=== PATIENT | female | born 1945 | race Caucasian/White ===

== ENCOUNTER 2022-04-22 08:00 | Outpatient (CLI) | payer MEDICARE, BC, SELFPAY | END 2022-04-22 08:01 | disposition home or self-care (01) | LOC: RAD 08:02 | PROVIDERS: PCP Family Medicine; Visit Provider Family Medicine | DX: M48.062 Spinal stenosis, lumbar region with neurogenic claudication (principal); M54.16 Radiculopathy, lumbar region; M51.36 Other intervertebral disc degeneration, lumbar region | CPT/HCPCS: 62323; J0702; Q9966 ==

== ENCOUNTER 2022-10-31 09:39 | Emergency (ER) | payer MEDICARE, BC, SELFPAY ==
[2022-10-31 09:49] VITALS: BP 180/71; PULSE 74; RESP 18; TEMP 36.7; O2SAT 97; BMI 30.1
--- NOTE | 2022-10-31 10:04 | CRLHL7_ITS ---
For Patients: As a result of the Century Cures Act, medical imaging exams and procedure reports are released immediately into your electronic medical record. You may view this report before your referring provider. If you have questions, please contact your health care provider. INDICATION: Right facial pain, sinusitis TECHNIQUE: CT sinus without contrast. COMPARISON: None. FINDINGS: Sphenoid sinus: Trace mucosal thickening. Ethmoid sinus: Mild mucosal thickening. Frontal sinus: Mild mucosal thickening at the frontoethmoidal recess. Maxillary sinus: Thicker bilateral mucosal thickening. Ostiomeatal units: Mucosal thickening narrowing to nearly occluding the infundibula bilaterally. Nasal cavity: Leftward deviation of the nasal septum with a leftward bony spur. Temporomandibular joints: Bilateral temporomandibular joint osteoarthritis, greater on the right. Mastoid air cells: Trace right mastoid fluid. Orbits: Unremarkable. Other: Atherosclerosis. IMPRESSION: 1. Mild sinus disease with mucosal thickening in the maxillary sinuses and narrowing to near occlusion of the ostiomeatal units bilaterally. 2. Bilateral temporomandibular joint osteoarthritis. Please note that all CT scans at this facility use dose modulation, iterative reconstruction, and/or weight-based dosing when appropriate to reduce radiation dose to as low as reasonably achievable. Dictated by Woodrow Casey MD @ 10/31/2022 12:45:17 PM (Electronically Signed)
--- NOTE | 2022-10-31 10:04 | CRLHL7_ITS ---
For Patients: As a result of the Century Cures Act, medical imaging exams and procedure reports are released immediately into your electronic medical record. You may view this report before your referring provider. If you have questions, please contact your health care provider. INDICATION: Headache and facial pain TECHNIQUE: CT head without contrast. COMPARISON: None. FINDINGS: CSF spaces: Within normal limits for age. Brain parenchyma: No intracranial bleed or mass effect. Cordova-white differentiation is distinct. Mild low-density in the deep white matter. Skull base and calvarium: Mucosal thickening paranasal sinuses. Bilateral temporomandibular joint osteoarthritis. The visualized orbits are grossly unremarkable. No skull fractures. IMPRESSION: 1. No intracranial bleed or mass effect. 2. Mild nonspecific white matter disease, likely microangiopathy. 3. Bilateral temporomandibular joint osteoarthritis. Please note that all CT scans at this facility use dose modulation, iterative reconstruction, and/or weight-based dosing when appropriate to reduce radiation dose to as low as reasonably achievable. Dictated by Woodrow Casey MD @ 10/31/2022 12:41:10 PM (Electronically Signed)
--- NOTE | 2022-10-31 10:18 | ED_ITS ---
HPI - General Adult General Time Seen by Provider: 10:19 Date Seen: 10/31/22 Chief complaint: Headache/Migraine Stated complaint: Headache Time Seen by Provider: 10/31/22 09:55 Source: patient Mode of arrival: ambulatory Limitations: no limitations History of Present Illness HPI narrative: Patient is a very pleasant 77 year white female who presents with right maxil colin tenderness, as well as a recent cold cough congestion over the last 4-6 weeks. She has tried some antibiotic that and help much she reports that she slept with her head cocked to the right and thinks that might have contributed some of her discomfort today. She is concerned about brain hemorrhage and presents to ER for evaluation. She has had some family history of brain hemorrhage. She has no focal neurologic weakness no fevers, she has had a little bit of congestion, that her daughter notices as well. Occasional cough , no chest pain or shortness of breath. No leg swelling or edema. Related Data Home Medications Medication Instructions Recorded Confirmed albuterol sulfate 90 mcg/actuation g inhalation 10/28/22 10/28/22 aerosol inhaler amlodipine 5 mg tablet 5 mg PO 10/28/22 10/28/22 aspirin 81 mg tablet,delayed 81 mg PO QDAY 10/28/22 10/28/22 release carvedilol 25 mg tablet 25 mg PO 10/28/22 10/28/22 duloxetine 30 mg capsule,delayed ea PO 10/28/22 10/28/22 release losartan 100 mg tablet 100 mg PO QDAY 10/28/22 10/28/22 rosuvastatin 5 mg tablet 5 mg PO 10/28/22 10/28/22 torsemide 10 mg tablet 10 mg PO 10/28/22 10/28/22 Previous Rx's Medication Instructions Recorded azithromycin 250 mg tablet See Rx Instructions PO .COMPLEX #6 10/31/22 (Zithromax Z-Henok) tabs methylprednisolone 4 mg tablets in See Rx Instructions PO .COMPLEX 10/31/22 a dose pack (Medrol (Henok)) #21 ea Allergies Allergy/AdvReac Type Severity Reaction Status Date / Time No Known Drug Allergies Allergy Verified 10/28/22 13:42 Review of Systems Status of ROS: Reports: 10 or more systems reviewed and unremarkable except as noted in History and below [facility] Medical History Cervical radiculopathy Degenerative disc disease, cervical Lumbar spondylosis Metatarsalgia, right foot Thoracic degenerative disc disease Surgical History History of thumb surgery (09/30/06) Hx of thumb surgery (07/17/06) S/P left knee arthroscopy (10/09/05) S/P ORIF (open reduction internal fixation) fracture (01/03/16) Status post arthroscopy of left shoulder (05/29/10) Status post arthroscopy of right shoulder (06/16/01) 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, 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) Social History Smoking Status: Never smoker Do you use any of these nicotine containing products: None Second hand tobacco smoke exposure: No How often do you have a drink containing alcohol: never How often do you have six or more drinks on one occasion: Never AUDIT-C Alcohol total score: 0 Non-prescribed substance use: denies use Exam Narrative: Exam Narrative: Objective: Vital signs unremarkable In general no apparent distress, no facial asymmetry, no facial weakness, mouth is clear tongue protrudes midline Neck is supple Chest is clear no rales or wheezing Heart rate and rhythm regular with 2/6 systolic murmur Abdomen benign soft Extremities are no edema good peripheral perfusion noted Skin exam unremarkable, warm and dry Const: Vital Signs, click to edit/add: Vital Signs - 24 hr 10/31/22 09:49 Temperature 98.0 F Pulse Rate [Right Pulse Oximeter] 74 Respiratory Rate 18 Blood Pressure [Ri ght Upper Arm] 180/71 H Pulse Oximetry 97 Oxygen Delivery Me thod Room Air Course Vital Signs Vital signs: Initial Vital Signs Temperature 98.0 F 10/31/22 09:49 Temperature Source Temporal Artery Scan 10/31/22 09:49 Pulse Rate 74 10/31/22 09:49 Respiratory Rate 18 10/31/22 09:49 Blood Pressure 180/71 H 10/31/22 09:49 Blood Pressure Mean 107 10/31/22 09:49 Blood Pressure Position Sitting 10/31/22 09:49 Pulse Oximetry 97 10/31/22 09:49 Oxygen Delivery Method 10/31/22 09:49 Vital Signs Temperature 98.0 F 10/31/22 09:49 Pulse Rate 74 10/31/22 09:49 Respiratory Rate 18 10/31/22 09:49 Blood Pressure 180/71 H 10/31/22 09:49 Pulse Oximetry 97 10/31/22 09:49 Oxygen Delivery Method 10/31/22 09:49 Temperature 98.0 F 10/31/22 09:49 Pulse Rate 74 10/31/22 09:49 Respiratory Rate 18 10/31/22 09:49 Blood Pressure 180/71 H 10/31/22 09:49 Pulse Oximetry 97 10/31/22 09:49 Oxygen Delivery Method 10/31/22 09:49 Medical Decision Making MDM Narrative Medical decision making narrative: Patient is a 77-year-old white female who has a history of upper respiratory congestion with right maxillary sinus area pain. I think at this point would be spain given her concerns and history in terms of her family, and the fact that she does not get headaches, to CT her head and face make sure there is nothing in her head like a bleed or tumor, make sure she has no sinusitis. Will check laboratory studies as well. Will give her a small dose of Valera for her discomfort inner cheek area. Disposition pending findings above. Will check laboratory studies as well. Specifically CRP and sed rate to make sure he is not are not markedly elevated or any evidence of PMR/temporal arteritis Addendum: The patient's head CT shows no significant finding other than some age-related degenerative change, her sinuses on CT look to be positive for sinusitis. Her lab studies look reassuring, viral tests are negative. Patient be treated with prednisone and Z-Henok. Would recommend follow up with regular doctor in the next few days. Return sooner problems or concerns she was compass will follow up as directed I think a lot of her symptoms might be related to sinusitis given her CT findings. Lab Data Labs: Lab Results 10/31/22 10/31/22 10/31/22 Range/Units 09:54 10:18 10:18 WBC 7.46 (4.50-11.00) K/uL RBC 4.24 (4.00-5.20) m/uL Hgb 13.5 (12.0-16.0) gm/dL Hct 41.1 (33.0-51.0) % MCV 97 (80-100) fL MCH 32 (26-34) pg MCHC 33 (32-36) gm/dL RDW Coeff of Dayron 12.5 (11.5-15.5) % Plt Count 199 (140-440) K/uL Neut % (Auto) 78.1 H (42.0-72.0) % Lymph % (Auto) 9.0 L (20-44) % [place] % (Auto) 8.8 (0.0-11.0) % Eos % (Auto) 3.6 (0.0-7.0) % Baso % (Auto) 0.4 (0.0-3.0) % Neut # (Auto) 5.80 (1.7-7.0) K/uL Lymph # (Auto) 0.70 L (0.90-2.90) K/uL [place] # (Auto) 0.70 (0.00-0.90) K/UL Eos # (Auto) 0.27 (0.00-0.50) K/uL Baso # (Auto) 0.03 (0.00-0.30) K/uL ESR (2-20) mm/hr Sodium 140 (135-149) mmol/L Potassium 3.7 (3.6-5.1) mmol/L Chloride 104 (96-114) mmol/L Carbon Dioxide 31 (20-32) mmol/L BUN 20 (7-30) mg/dL Creatinine 0.6 (0.5-1.5) mg/dL Estimated Creat Clear 50.95 Estimated GFR 92 ml/min Glucose 117 H (60-115) mg/dL Calcium 9.8 (8.4-10.6) mg/dL Total Bilirubin 1.0 (0.1-1.5) mg/dL Direct Bilirubin 0.2 (0.0-0.5) mg/dL AST 24 (12-35) U/L ALT 21 (4-35) U/L Alkaline Phosphatase 88 (40-150) U/L C-Reactive Protein 0.7 (0.5-1.0) mg/dL Total Protein 7.6 (6.0-8.3) g/dL Albumin 4.4 (3.3-5.0) g/dL SARS-CoV-2 (PCR) Negative SARS-CoV-2 (Negative) Influenza Type A (PCR) Negative PCR FLU A (Negative) Influenza Type B (PCR) Negative PCR FLU B (Negative) RSV (PCR) Negative PCR RSV (Negative) 10/31/22 Range/Units 10:18 WBC (4.50-11.00) K/uL RBC (4.00-5.20) m/uL Hgb (12.0-16.0) gm/dL Hct (33.0-51.0) % MCV (80-100) fL MCH (26-34) pg MCHC (32-36) gm/dL RDW Coeff of Dayron (11.5-15.5) % Plt Count (140-440) K/uL Neut % (Auto) (42.0-72.0) % Lymph % (Auto) (20-44) % [place] % (Auto) (0.0-11.0) % Eos % (Auto) (0.0-7.0) % Baso % (Auto) (0.0-3.0) % Neut # (Auto) (1.7-7.0) K/uL Lymph # (Auto) (0.90-2.90) K/uL [place] # (Auto) (0.00-0.90) K/UL Eos # (Auto) (0.00-0.50) K/uL Baso # (Auto) (0.00-0.30) K/uL ESR 21 H (2-20) mm/hr Sodium (135-149) mmol/L Potassium (3.6-5.1) mmol/L Chloride (96-114) mmol/L Carbon Dioxide (20-32) mmol/L BUN (7-30) mg/dL Creatinine (0.5-1.5) mg/dL Estimated Creat Clear Estimated GFR ml/min Glucose (60-115) mg/dL Calcium (8.4-10.6) mg/dL Total Bilirubin (0.1-1.5) mg/dL Direct Bilirubin (0.0-0.5) mg/dL AST (12-35) U/L ALT (4-35) U/L Alkaline Phosphatase (40-150) U/L C-Reactive Protein (0.5-1.0) mg/dL Total Protein (6.0-8.3) g/dL Albumin (3.3-5.0) g/dL SARS-CoV-2 (PCR) (Negative) Influenza Type A (PCR) (Negative) Influenza Type B (PCR) (Negative) RSV (PCR) (Negative) Discharge Plan Discharge Clinical Impression: Acute facial pain, Acute upper respiratory infection Patient Disposition: Home w/ Parent or Adult Condition: Stable Additional Instructions: Z-Henok and prednisone, rest, light activity, follow up with regular doctor next few days, return to ED sooner problems concerns worsening. Appears to have sinusitis on your CT scan. Your brain CT did not show any acute changes. Recommend continue home medications and follow up with her regular doctor as above. Light activity fluids, rest. Activity Level: Light activity Discharge Diet: Regular Prescriptions: New azithromycin [Zithromax Z-Henok] 250 mg tablet See Rx Instructions .ROUTE .COMPLEX Qty: 6 0RF Rx Instructions: For 250 mg dose pack: take 500 mg today (day 1), then 250 mg for 4 days (days 2-5) methylprednisolone [Medrol (Henok)] 4 mg tablets,dose pack See Rx Instructions .ROUTE .COMPLEX Qty: 21 0RF Rx Instructions: orally per package directions No Action duloxetine 30 mg capsule,delayed release(DR/EC) PO albuterol sulfate 90 mcg/actuation HFA aerosol inhaler inhalation amlodipine 5 mg tablet 5 mg PO torsemide 10 mg tablet 10 mg PO losartan 100 mg tablet 100 mg PO QDAY carvedilol 25 mg tablet 25 mg PO rosuvastatin 5 mg tablet 5 mg PO aspirin 81 mg tablet,delayed release (DR/EC) 81 mg PO QDAY Label Comments: TAKE 1 TABLET BY MOUTH TWICE DAILY Follow Up/Referrals: Bonita Arevalo MD [Primary Care Provider] - Stand Alone Forms: Selvz Info Instructions
[2022-10-31] MEDS: HYDROCODONE-ACETAMIN 5-325 MG 1 TAB PO (10:20)
[2022-10-31 10:25] LABS: Basophils Absolute Auto 0.03 K/uL (0.00-0.30); Basophils Percent Auto 0.4 % (0.0-3.0); Eosinophils Absolute Auto 0.27 K/uL (0.00-0.50); Eosinophils Percent Auto 3.6 % (0.0-7.0); Hematocrit 41.1 % (33.0-51.0); Hemoglobin* 13.5 gm/dL (12.0-16.0); Immature Granulocytes Abs Auto 0.01 K/uL (0.00-0.30); Immature Granulocytes Pct Auto 0.1 %; Mean Corpuscular HGB Conc 33 gm/dL (32-36); Mean Corpuscular Hemoglobin 32 pg (26-34); Mean Corpuscular Volume 97 fL (80-100); Monocytes Percent Auto 8.8 % (0.0-11.0); Neutrophils Percent Auto 78.1 % (42.0-72.0); Platelet Count* 199 K/uL (140-440); RDW Coefficient of Variation % 12.5 % (11.5-15.5); Red Blood Count 4.24 m/uL (4.00-5.20); White Blood Count* 7.46 K/uL (4.50-11.00)
[2022-10-31 10:29] LABS: Slide Review Reflex No
[2022-10-31 10:46] LABS: Albumin* 4.4 g/dL (3.3-5.0); Chloride* 104 mmol/L (96-114)
[2022-10-31 10:47] LABS: Potassium* 3.7 mmol/L (3.6-5.1); Sodium* 140 mmol/L (135-149)
[2022-10-31 10:49] LABS: Alkaline Phosphatase* 88 U/L (40-150); Aspartate Amino Transferase* 24 U/L (12-35); Bilirubin Direct* 0.2 mg/dL (0.0-0.5); Carbon Dioxide* 31 mmol/L (20-32); Creatinine* 0.6 mg/dL (0.5-1.5); Est. Creatinine Clearance* 50.95; Estimated Glomerular Filt Rate 92 ml/min; Total Protein* 7.6 g/dL (6.0-8.3)
[2022-10-31 10:50] LABS: Alanine Aminotransferase* 21 U/L (4-35); Blood Urea Nitrogen* 20 mg/dL (7-30); Calcium* 9.8 mg/dL (8.4-10.6); Glucose* 117 mg/dL (60-115)
[2022-10-31 10:52] LABS: C Reactive Protein* 0.7 mg/dL (0.5-1.0)
[2022-10-31 10:54] LABS: PCR FLU A Negative PCR FLU A (Negative); PCR FLU B Negative PCR FLU B (Negative); PCR RSV Negative PCR RSV (Negative)
[2022-10-31 10:56] LABS: SARS PCR* Negative SARS-CoV-2 (Negative)
[2022-10-31 11:15] LABS: Erythrocyte SedimentationRate* 21 mm/hr (2-20)
== END 2022-10-31 12:54 | disposition home or self-care (01) ==
PROVIDERS: Emergency Provider Family Medicine; PCP Family Medicine
DX: J06.9 Acute upper respiratory infection, unspecified (principal); G50.1 Atypical facial pain
CPT/HCPCS: 36415; 70450; 70486; 80048; 80076; 85025; 85651; 86140; 87502; 87634; 87635; 99284; A9270

== ENCOUNTER 2022-11-05 06:31 | Day surgery (SDC) | payer MEDICARE, BC, SELFPAY ==
[2022-11-05] VITALS (7 sets, daily range): BP systolic 165–194; BP diastolic 8–91; PULSE 68–74; RESP 14–18; TEMP 36.6–36.9; O2SAT 97–98; BMI 28.7
[2022-11-05] MEDS: BUPIVACAINE 0.5% 30 ML INJECTION (06:55)
[2022-11-05] MEDS: ETHYL CHLORIDE 1 APPLICATION TOPICAL (06:55)
--- NOTE | 2022-11-05 07:27 | SUR.PREOP ---
SAME DAY SURGERY LOCAL INJECTION SITE VERIFICATION WAS PERFORMED BY SURGEON/PA AND PATIENT PRIOR TO LOCAL ANESTHETIC BEING INJECTED TO OPERATIVE SITE.
--- NOTE | 2022-11-05 07:42 | P.ORPRC_ITS ---
Procedure Note Date of procedure: 11/05/22 Procedure: PREOPERATIVE DIAGNOSIS: 1. Left long finger flexor tenosynovitis - trigger finger POSTOPERATIVE DIAGNOSIS: 1. Left long finger flexor tenosynovitis - trigger finger PROCEDURE: 1. Left long finger flexor tendon sheath open release (A1 michael) SURGEON: Óscar Zuniga MD. VALVE AND REGULATOR REPAIRER: Andrew Chinchilla PA-C ANESTHESIA: Local anesthetic 4ml via 50:50 mixture of 1% Lidocaine with epi and 0.5% marcaine plain EBL: 2ml IMPLANTS: None TOURNIQUET: None COMPLICATIONS: None evident INDICATIONS: The patient is a pleasant 77-year-old female who has experienced left long finger catching/triggering for number of months. It has progressively gotten worse. Given the failure of nonoperative management, and how this affects daily life, surgery was recommended. DESCRIPTION OF PROCEDURE: Following a thorough discussion of risks, benefits, and alternatives consent was obtained and the operative digit(s) was marked. The patient was brought to the operating room and placed supine on the operating table. Local anesthesia induction was undertaken in preop holding. No antibiotics were administered as this was planned to be a local case only. Proper time-out was performed identifying proper patient, site, and procedure. The operative extremity was prepped and draped in the appropriate sterile fashion using ChloraPrep. A incision was made on the palmar surface of the hand overlying the MCP joint region of the appropriate digit(s) respecting the palmar creases being cautious not to cross these perpendicularly. Sharp incision through the skin, and blunt dissection through subcutaneous tissue allowing protection of crossing neurologic structures. The A1 michael was visualized directly. It was incised sharply with a 15 blade. It was released completely from its distal to proximal extent under direct visualization. The tendon was inspected and found to be mildly striated consistent with some friction. Otherwise, it was intact. The tendon was removed out of the wound, and further inspected. The patient was asked to manually flex and extend the digits and showed no further catching. The catching which was visualized after tourniquet inflation, was no longer evident with reproduction of a manual fist and relaxation. Closure was performed with 4-O nylon in interrupted fashion. Soft dressings were applied, and the patient was transferred to the recovery room in stable condition. PLAN: 1. Encourage elevation of the operative extremity. 2. Range of motion and icing of the fingers and hand/wrist as tolerated/needed. 3. Ibuprofen/acetaminophen and/or Percocet as needed for pain control. 4. Follow up with PA visit in 12-16 days for wound check and suture removal.
== END 2022-11-05 08:15 | disposition home or self-care (01) ==
PROVIDERS: PCP Family Medicine; Visit Provider Orthopaedic Surgery Sports Medicine
PROC: (CPT 26055; principal; 2022-11-05 07:30)
DX: M65.332 Trigger finger, left middle finger (principal); M65.842 Other synovitis and tenosynovitis, left hand
CPT/HCPCS: 26055; J3490

== ENCOUNTER 2023-03-17 10:30 | Outpatient (RCR) | payer MEDICARE, BC, SELFPAY ==
--- NOTE | 2023-03-04 17:55 | OT.OPOE ---
OT Outpatient Ortho Eval OT Outpatient Ortho Eval* Start: 03/03/23 18:05 Freq: Status: Active Protocol: Document 03/04/23 14:52 AMB (Rec: 03/04/23 17:52 AMB [id number]) E-signed By Moon Vivas, OTR/L, CLT, DELIVERY SALES WORKER OT OP Ortho Eval Details Complexity Complexity Low Insurance Information Insurance Information Medicare B Outpatient History/Precautions Current Condition/Medical Diagnosis Referring Provider Dr Zuniga Treatment Diagnosis LUE 3rd digit TF release Date of Onset 11/05/22 Medical Conditions Depression,HTN,CA,Metal Implants,Fibromyalgia, Arthritis Other Conditions PMH (Copied from medical chart ): Active Problems (Updated 02/24 @ 13:50 by Aleena Sheets) Swelling of left middle finger (Acute) M79.89 - Other specified soft tissue disorders (ICD-10) S/P trigger finger release ( Acute 11/05/22) left long finger flexor tendon sheath open release (A1 michael) (11/05/2022, Dr. uZniga) Z98.890 - Other specified postprocedural states (ICD-10) Trigger finger, right ring finger (Acute) M65.341 - Trigger finger, right ring finger (ICD-10) Osteoarthritis of left hip ( Chronic) moderate-severe M16.12 - Unilateral primary osteoarthritis, left hip (ICD- 10) Medical History (Updated 02/24 @ 13:50 by Aleena Sheets) Surgical procedure planned within 7 days Special screening examination for other specified viral diseases Z11.59 - Encounter for screening for other viral diseases (ICD-10) Health care directive on file (06/17/12) Z78.9 - Other specified health status (ICD-10) Fracture of ankle S82.899A - Other fracture of unspecified lower leg, initial encounter for closed fracture (ICD-10) Cellulitis L03.90 - Cellulitis, unspecified (ICD-10) Thoracic degenerative disc disease M51.34 - Other intervertebral disc degeneration, thoracic region (ICD-10) Degenerative disc disease, cervical M50.30 - Other cervical disc degeneration, unspecified cervical region (ICD-10) Cervical radiculopathy M54.12 - Radiculopathy, cervical region (ICD-10) Lumbar spondylosis M47.816 - Spondylosis without myelopathy or radiculopathy, lumbar region (ICD-10) Metatarsalgia, right foot M77.41 - Metatarsalgia, right foot (ICD-10) Surgical History (Updated @ 13:48 by Aleena Sheets) S/P trigger finger release () Z98.890 - Other specified postprocedural states (ICD-10) S/P left knee arthroscopy (09/02) Z98.890 - Other specified postprocedural states (ICD-10) Hx of thumb surgery (07/17/06) Z98.890 - Other specified postprocedural states (ICD-10) History of thumb surgery (12/02) Z98.890 - Other specified postprocedural states (ICD-10) Status post arthroscopy of left shoulder (05/29/10) Z98.890 - Other specified postprocedural states (ICD-10) S/P ORIF (open reduction internal fixation) fracture ( 01/03/16) Z98.890 - Other specified postprocedural states (ICD-10) Z87.81 - Personal history of ( healed) traumatic fracture ( ICD-10) Status post arthroscopy of right shoulder (06/16/01) Z98.890 - Other specified postprocedural states (ICD-10) Status post total bilateral knee replacement (2013) Z96.653 - Presence of artificial knee joint, bilateral (ICD-10) Status post total hip replacement, 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) Z96.641 - Presence of right artificial hip joint (ICD-10) Medical/Functional History Medical History Reviewed Yes Social History Employment Status Retired Ortho Subjective Subjective Subjective Pt states she has really been struggling with swelling and impaired ROM in her LUE 3rd finger ever since her TF release in October. Pt states it's been really hard to do things that require both of her hands as it is still painful at times. She reports difficulty opening containers wringing out a rag, etc. Pt reports an average pain of 2/ 10 with gripping something or bumping her hand. Range of Motion and Strength Hand/Finger/Thumb Range of Motion and Strength Hand/Finger/Thumb Range of Motion and Pt demonstrates AROM to be WFL Strength throughout BUE with the exception of her LUE 3rd digit which is as follows: MP is 0 -90, PIP is -5-80, DIP is 0-60 . Hand Pinch/Heavy Equipment Sales Manager Strength Hand Right Heavy Equipment Sales Manager Strength Position 1 (lbs) 52 Lateral Pinch Strength (lbs) 16 Three Point Pinch (lbs) 16 Left Heavy Equipment Sales Manager Strength Position 1 (lbs) 58 Lateral Pinch Strength (lbs) 17 Three Point Pinch (lbs) 11 OT Objective Data Skin/Wounds/Edema Comments 03/04/23 Circumferential measurements were taken of BUE 3rd digits: RUE 1st phalanx 7.2cm, LUE 8cm RUE PIPJ 7.0cm, LUE 7.0 RUE 2nd phalanx 6.0cm, LUE 6. 2cm OT Problems Problems Problems Decreased Strength,Decreased Range of Motion,Pain,Sensory Sensitivity,Lifting,Gripping, Pinching Other Problems Opening Containers Patient Potential Good Assessment Assessment Assessment Pt is a very pleasant 78yo female presenting to OT with complaints of pain, swelling, and limited AROM in her LUE 3rd digit which impairs her ability to open containers, inspector multifocal lens something tightly and use her hand for heavy lifting activities. Pt does have a presence of Dupuytren's in the LUE palm as well, does not appear to be a factor. Pt will benefit from skilled OT intervention to address limitations and restore full, pain-free use of her LUE. Occupational Therapy Treatment Plan - OP Potential Rehabilitation Potential Good Set Goals Goals Set with Patient Yes Goals Goals 1. Pt will be independent and compliant with HEP in order to resume full, pain-free use of the involved UE. 3 weeks 2. Pt will demonstrate full, pain-free AROM of the involved UE in order to improve ability to grasp and hold. 6 weeks 3. Pt will demonstrate a reduction of at least .5cm from the proximal phalanx of the LUE 3rd digit in order to improve ROM. 8 weeks. Treatment Plan Treatment Plan Evaluation,Edema Control,Joint Mobilization,Manual Therapy, Splinting,Ultrasound, Therapeutic Exercise, Therapeutic Activities,Self Care/Home Management,Education Expected Frequency 1-2x Week Expected Frequency Comments Pt will be out of town next week. Expected Duration 8-10 Weeks Home Program Home Program Home Program Initiated Home Program Specifics Joint blocking, tendon glides and PROM of the LUE 3rd digit. Certification Certification I Certify That: Therapy Services Provided, Therapy Plan Established, Therapy Plan Reviewed Recertification Information Recertification Information Initial Certification Date 03/04/23 Recertification Due Date 06/02/23 Reasons to Continue Skilled Therapy Initiated OT today to address pain, swelling, and limited AROM in the LUE hand / 3rd digit following TF release. Rehabilitation Potential Good Continued Plan of Care and Interventions Please see above Provider Signature Shows Agreement With POC & Medical Necessity Physician Comment/Change Comment or Changes Physician NPI Number #
== END 2023-05-29 16:19 | disposition home or self-care (01) ==
PROVIDERS: PCP Family Medicine; Visit Provider Orthopaedic Surgery Sports Medicine
DX: M79.89 Other specified soft tissue disorders (principal); Z98.890 Other specified postprocedural states; Z51.89 Encounter for other specified aftercare
CPT/HCPCS: 97140; 97165

== ENCOUNTER 2023-07-14 08:37 | Outpatient (CLI) | payer MEDICARE, BC, SELFPAY | END 2023-07-14 08:38 | disposition home or self-care (01) | LOC: INJ CL 08:38 | PROVIDERS: PCP Family Medicine; Visit Provider Family Medicine | DX: M54.16 Radiculopathy, lumbar region (principal); M51.36 Other intervertebral disc degeneration, lumbar region | CPT/HCPCS: 62323; J0702; Q9966 ==

== ENCOUNTER 2023-10-08 12:44 | Outpatient (CLI) | payer MEDICARE, BC, SELFPAY ==
--- OUTSIDE RECORDS SUMMARY | 2023-10-08 12:49 | XMS_ITS | Clinical Summary ---
Author Name Unknown Organization [facility] Address [place], [place] [address] Care Team Providers Care Linux Server Administrator Name Role Phone Bonita Arevalo MD Primary Care Provide r Allergies No known active allergies Medications Medication Sig Dispensed Refills Start Date End Date Status ASPIRIN 81 MG TAB, DELAYED RELEASE take 1 tablet (81 mg) by oral route once daily 0 02/24/2008 Active fish oil-omega-3 fatty acids (FISH OIL) 1,000-340 mg capsule Take 1,000 mg by mouth once daily. 0 Active multivitamin (MVI) tablet Take 1 tablet by mouth once daily. 0 Active amoxicillin (AMOXIL) 500 mg tabletIndications :Dental root implant present Take 4 tablets or 2 grams 1 hour prior to dental work 4 Tablet 0 07/09/2021 Active CPAPIndications:O SA (obstructive sleep apnea) CPAP machine for home use at pressure: 8.5-15 cmw , Heated humidifier x 1 q 5 yr, Humidifier chamber x 1 q 6 mo, nasal mask x1 q 3mos, with cushion x 2 q mo, Heated tubing x 1 q 3 mo, Headgear x 1 q 6 mo, Filters: Disposable x 2 q mo non-disposable filters x1 q 6mo, Length of Need: 99 months, Frequency of use: Daily 1 Each 11 07/24/2022 Active albuterol HFA (PRO-AIR; VENTOLIN; PROVENTIL) 90 mcg/actuation inhalerIndication s:Wheezing Inhale 1-2 Puffs by mouth every 4 hours while awake. 6.7 g 5 11/06/2022 Active fluticasone (50 mcg per actuation) nasal solution (FLONASE)Indicati ons:Acute maxillary sinusitis, recurrence not specified SHAKE LIQUID AND USE 2 SPRAYS IN EACH NOSTRIL EVERY DAY 48 g 3 12/05/2022 Active cholecalciferol (Vitamin D) 1,000 unit capsule Take 1 Capsule (1,000 units) by mouth once daily. 0 12/11/2022 Active carvediloL (COREG) 25 mg tabletIndications :HTN (hypertension) Take 1 Tablet (25 mg) by mouth two times daily with meals. 200 Tablet 3 12/11/2022 Active methylPREDNISolon e (methylPRED DP) 4 mg tabletIndications :Low back pain with radiation Take by mouth as instructed per packaging. 21 Tablet 0 06/02/2023 Active torsemide (DEMADEX) 5 mg tabletIndications :HTN (hypertension) Take 1 Tablet (5 mg) by mouth once daily. 90 Tablet 3 07/03/2023 Active HYDROcodone-aceta minophen ([place]) (5-325 mg/tablet)Indicat ions:Spinal stenosis of lumbar region with neurogenic claudication Take 1 Tablet by mouth every 4 hours if needed for Pain. Max acetaminophen dose: 4000mg in 24 hrs. 24 Tablet 0 07/06/2023 Active amLODIPine (NORVASC) 5 mg tabletIndications :HTN (hypertension) Take 1 Tablet (5 mg) by mouth once daily. 90 Tablet 3 07/06/2023 Active losartan (COZAAR) 100 mg tabletIndications :HTN (hypertension) Take 0.5 Tablets (50 mg) by mouth once daily. 100 Tablet 3 07/21/2023 Active Blood Pressure Test Kit-Large (Quick Response BP Monitor) kitIndications:HT N (hypertension) As directed. Large automatic arm cuff, diagnosis hypertension diagnosis I10 1 Kit 0 10/05/2023 Active DULoxetine (CYMBALTA) 20 mg Delayed-release capsuleIndication s:Major depressive disorder, single episode, mild (HC) Take 1 Capsule (20 mg) by mouth once daily. 30 Capsule 0 10/05/2023 Active Blood Pressure Test Kit-Large (QUICK RESPONSE BP MONITOR) kitIndications:HT N (hypertension) As directed. Large automatic arm cuff, diagnosis hypertension diagnosis I10 1 Kit 0 07/22/2016 4 Discontinu ed(Reorder (E-cancel not sent)) DULoxetine (CYMBALTA) 30 mg Delayed-release capsuleIndication s:Muscle pain,Mild depression Take 1 Capsule (30 mg) by mouth once daily. 90 Capsule 3 12/11/2022 4 Discontinu ed(*Medica tion adjustment ) Active Problems Problem Noted Date Diagnosed Date Nodule of upper lobe of right lung 11/06/2022 Bilateral leg edema 07/04/2022 HTN (hypertension) 07/04/2022 Major depressive disorder, single episode, mild 11/28/2021 Microscopic colitis 06/09/2017 Overview: Colonoscopy 06/2017 lymphocytic colitis, polyp repeat in 5 years Lentigo maligna 03/08/2015 Mild depression 02/23/2013 Basal cell carcinoma of nose 02/03/2012 EVA 03/05/2011 AHI- 14 03/07/2011 Osteoarthritis of hip 03/11/2010 Personal history of colonic polyps 03/11/2010 Overview: Colonoscopy 03/2015 polyp repeat in 5 years Colonoscopy 06/2017 lymphocytic colitis, polyp repeat in 5 years Colonoscopy 02/2023 diverticulosis, no follow up needed Vitamin D deficiency 03/13/2009 Lumbar facet arthropathy 07/17/2008 Degeneration of lumbar or lumbosacral interverte bral disc 07/17/2008 Spinal stenosis, lumbar casey on, without neurogenic claudication 07/17/2008 Other and unspecified hyperlipidemia Unspecified essential hypertension Migraine, unspecified, witho ut mention of intractable migraine without mention of status migrainosus Mitral valve disorders Encounters Date Type Department Care Team Description 10/05/2023 2:45 PM PUZZLE ASSEMBLER Ancillary Procedure [facility] [address] [place] [address] Arrived 10/05/2023 2:30 PM PUZZLE ASSEMBLER Ancillary Procedure [facility] [address] [place] [address] Arrived 10/05/2023 1:40 PM PUZZLE ASSEMBLER Office Visit [facility] [address] [place] [address] Josh Bazzi MD Musculoskeletal Problem (Follow up back pain and hip pain/Consult right shoulder pain, patient fell February 2023) 10/05/2023 Travel 10/05/2023 Telephone [facility] [address] [place] [address] Bonita Arevalo MD Questions 10/01/2023 Travel 07/28/2023 1:00 PM CDT Ancillary Procedure [facility] [address] [facility] [place] [address] 07/28/2023 Travel 07/24/2023 11:20 AM CDT Ancillary Procedure [facility] [address] [facility] [place] [address] 07/24/2023 Travel 07/14/2023 9:00 AM CDT Office Visit [facility] at [address] [phone] Josh Bazzi MD Procedure (L5-S1 ILESI) 07/09/2023 Travel from Last 3 Months Immunizations Name Administration Dates Next Due COVID-19 vaccine (Moderna 100mcg/0.5mL) PF, MDV 08/27/2021 COVID-19 vaccine (Pfizer-Bio NTech 30mcg/0.3mL) PF, MDV 01/01/2021 DT (Age < 7 years) 10/13/2003 DTaP 06/21/2008 Influenza A (H1N1), Inactivated 08/06/2009 Influenza A (H1N1), Inactiva alix (Age >=3 Years) 08/06/2009 Influenza, High-dose Inactivated 021,06/30/2019,07/02/2018,2017,07/09/2016,06/20/2015 Influenza, High-dose Quadriv alent Inactivated 07/03/2023,06/20/2022,08/27/2021,2019 Influenza, IIV3 (Age 6-35 mos) 07/01/2011,2009 Influenza, IIV3 (Age >=3 years) 06/24/20 13,06/30/2012,07/01/2011,2010,06/11/2010,07/10/2009,07/09/2006 Influenza, IIV4 08/06/2009 Influenza, Inactivated AIIV4 (Age 65+ Years) Preserv Free 06/15/2020 Influenza,CCIIV4 PRESERV FREE 07/13/2017 Pneumococcal Poly,23-Valent (Pneumovax) 03/07/2014 Pneumococcal conj 13-Valent (Prevnar 13) 07/18/2016 Pneumococcal conj 7-Valent ( Prevnar 7) 09/24/2006 Td (Age >=7 Years) 10/13/2003 Tdap 07/02/2018 Zoster (Shingrix-RZV, recombinant) 11/03/2022, Zoster (Zostavax-ZVL, live) 09/25/2006, 6 Family History Medical History Relation Name Comments Hypertension Father Stroke Father of a cereb ral hemorrhage at 65 Cancer Mother uterine metasta tic age 66 Hypertension Mother Cancer-breast No Family History Relation Name Status Comments Father Mother Social History Tobacco Use Types Packs/Day Years Used Date Smoking Tobacco: Never Smokeless Tobacco: Never Tobacco Cessation:Counseling Given: Yes Alcohol Use Standard Drinks/Week Comments Yes 14 (1 standard drink = 0.6 oz pu re alcohol) 2 glasses of wine per day PHQ-2 Answer Date Recorded PHQ-2 TOTAL SCORE 0 12/11/2022 Social Connections Answer Date Recorded Frequency of Communication with Friends and Fami ly Not on file 08/28/2023 Financial Resource Strain Answer Date R ecorded Difficulty of Paying Living Expenses 3 01/27/2022 Difficulty of Paying Living Expenses Not on file 01/27/2022 Food Insecurity Answer Date Recorded Worried About Running Out of Food in the Last Ye ar 1 01/27/2022 Transportation Needs Answer Date Record ed Lack of Transportation (Medical) 1 01/27/2022 Housing Stability Answer Date Recorded Unable to Pay for Housing in the Last Year 1 01/27/2022 Sex and Gender Information Value Date Recorded Sex Assigned at Female 03/19/2020 6:43 AM CDT Gender Identity Female 03/19/2020 6:43 AM CDT Sexual Orientation Straight 03/19/2020 6: 43 AM CDT Obstetrics History Para Term AB IAB SAB Ectopic Multiple Livin g Live Births 2 2 2 2 Date Outcome GA Total Labor Labor/2nd/3rd Weight Sex Delivery Anes PTL Gabby A1 A5 Name Cl in Term Term Last Filed Vital Signs Vital Sign Reading Time Taken Comments Blood Pressure 179/67 10/05/2023 1:48 PM PUZZLE ASSEMBLER Pulse 62 10/05/2023 1:48 PM PUZZLE ASSEMBLER Temperature 36.6 ??C (97.9 ??F) 10/05/2023 1:48 PM CS T Respiratory Rate 14 03/18/2023 9:57 AM CDT Oxygen Saturation 100% 10/05/2023 1:48 PM PUZZLE ASSEMBLER Inhaled Oxygen Concentration - - Weight 90.9 kg (200 lb 8 oz) 07/03/2023 9:35 AM CDT Height 176.5 cm (5' 9.5) 04/16/2023 1:16 PM CDT Body Mass Index 29.18 04/16/2023 1:16 PM CDT Plan of Treatment Health Maintenance Due Date Last Done Comments Medicare Wellness for age 65+ 12/11/2023, 01/11/2021, 02/20/2011 Depression screening for age 12+ 12/12/2023 12/11/2022, 07/04/2022, 01/11/2021, Additional history exists BMI (ht and wt on same day) for age 18+ 04/16/2024 04/16/2023, 12/11/2022, 12/10/2021, Additional history exists Tetanus booster 07/02/2028 07/02/2018, 01/27 (Completed outside of [facility]), 10/13/2003 DEXA/DXA scan for age 65+ Completed 02/01/2010 Pneumococcal series for age 65+ Completed 07/18/2016, 03/07/2014, 09/24/2006 Tdap Completed 07/02/2018 Zoster (shingles) series for age 50+ Completed 11/03/2022, 07/16/2022, 09/25/2006, Additional history exists Hepatitis C screening for ag e 18-79 Completed 12/11/2022 COVID-19 vaccine series Completed 07/03/20, 06/20/2022, 08/27/2021, Additional history exists Influenza for age 65+ Completed 07/03/2023 , 06/20/2022, 08/27/2021, Additional history exists Procedures Procedure Name Priority Date/Time Associated Diagnosis Comments XR SHOULDER 3 VIEWS RIGHT Routine 10/05/2023 2:53 PM PUZZLE ASSEMBLER Right shoulder strain, sequela Chronic right shoulder pain XR HIP 1 VIEW W PELVIS RIGHT Routine 10/05/2023 2:52 PM PUZZLE ASSEMBLER Trochanteric bursitis of right hip S/P total right hip arthroplasty US CAROTID DUPLEX BILATERAL Routine 07/28/2023 2:17 PM CDT HTN (hypertension) Dizziness XR MAMMO JANY BILAT SCREEN Routine 07/24/2023 12:06 PM CDT Encounter for screening mammogram for malignant neoplasm of breast AMB EPIDURAL STEROID INJECTION Routine 07/14/2023 8:10 AM CDT Lumbar radiculopathy Spinal stenosis of lumbar region with neurogenic claudication Spondylolisthesis of lumbar region Primary osteoarthritis of right hip Trochanteric bursitis of right hip [place] NJX DX/THER SBST INTRLMNR LMBR/SAC W/IMG GDN Routine 07/14/2023 12:00 AM CDT Lumbar radiculopathy Spinal stenosis of lumbar region with neurogenic claudication Spondylolisthesis of lumbar region Primary osteoarthritis of right hip Trochanteric bursitis of right hip from Last 3 Months Results * XR SHOULDER 3 VIEWS RIGHT (10/05/2023 2:53 PM PUZZLE ASSEMBLER) Anatomical Region Laterality Modality SHOULDERS, SHOULDER R Computed R adiography 10/05/2023 3:46 PM PUZZLE ASSEMBLER Impressions 10/05/2023 3:46 PM PUZZLE ASSEMBLER Degenerative and postsurgical change right shoulder. No evidence for new or old fracture or dislocation. Dictated by Demario Magana MD @ Sep ??8 2023 ??3:46PM (Electronically Signed) ?? Narrative 10/05/2023 3:46 PM PUZZLE ASSEMBLER For Patients: ??As a result of the Cures Act, medical imaging exams and procedure reports are released immediately into your electronic medical record. ??You may view this report before your referring provider. ??If you have questions, please contact your health care provider. INDICATION: 78 year-old female. Right shoulder pain. The patient fell in February of 2023. TECHNIQUE: Three views of the right shoulder. COMPARISON: None. FINDINGS: No acute fracture or dislocation of the right shoulder. There is mild narrowing and spurring of the right AC joint. Mild to moderate narrowing and minimal spurring of the glenohumeral joint. Postsurgical change right humeral head with 2 metallic anchors or screws. Procedure Note Demario Magana MD - 10/05/2023 For Patients: As a result of the Cures Act, medical imagingexams and procedure reports are released immediately into your electronicmedical record. You may view this report before your referring provider.If you have questions, please contact your health care provider. INDICATION: 78 year-old female. Right shoulder pain. The patient fell in February. TECHNIQUE: Three views of the right shoulder. COMPARISON: None. FINDINGS: No acute fracture or dislocation of the right shoulder. There is mild narrowing and spurring of the right AC joint. Mild to moderate narrowing and minimal spurring of the glenohumeraljoint. Postsurgical change right humeral head with 2 metallic anchors orscrews. IMPRESSION: Degenerative and postsurgical change right shoulder. No evidence for newor old fracture or dislocation. Dictated by Demario Magana MD @ Oct 05 2023 3:46PM (Electronically Signed) Josh Bazzi MD GENERAL IMAGING * XR HIP 1 VIEW W PELVIS RIGHT (10/05/2023 2:52 PM PUZZLE ASSEMBLER) Anatomical Region Laterality Modality HIPS, HIPR, Pelvis Computed Radi ography 10/05/2023 3:56 PM PUZZLE ASSEMBLER Impressions 10/05/2023 3:56 PM PUZZLE ASSEMBLER Right total hip arthroplasty. The components are adequately aligned and well seated. Dictated by Demario Magana MD @ 10/05/2023 3:56:31 PM (Electronically Signed) Narrative 10/05/2023 3:56 PM PUZZLE ASSEMBLER For Patients: ??As a result of the Cures Act, medical imaging exams and procedure reports are released immediately into your electronic medical record. ??You may view this report before your referring provider. ??If you have questions, please contact your health care provider. INDICATION: Right hip arthroplasty. Trochanteric bursitis. TECHNIQUE: AP pelvis and single view of the right hip. COMPARISON: August 26, 2021. FINDINGS: New right total hip arthroplasty. The components are adequately aligned and well seated. No evidence for erosive change of the right greater trochanter. Degenerative change left hip. Slight degenerative change of the symphysis pubis. Calcified pelvic phleboliths. Procedure Note Demario Magana MD - 10/05/2023 For Patients: As a result of the Cures Act, medical imagingexams and procedure reports are released immediately into your electronicmedical record. You may view this report before your referring provider.If you have questions, please contact your health care provider. INDICATION: Right hip arthroplasty. Trochanteric bursitis. TECHNIQUE: AP pelvis and single view of the right hip. COMPARISON: August 26, 2021. FINDINGS: New right total hip arthroplasty. The components are adequately alignedand well seated. No evidence for erosive change of the right greater trochanter.Degenerative change left hip. Slight degenerative change of the symphysis pubis. Calcified pelvicphleboliths. IMPRESSION: Right total hip arthroplasty. The components are adequately aligned andwell seated. Dictated by Demario Magana MD @ 10/05/2023 3:56:31 PM (Electronically Signed) Josh Bazzi MD GENERAL IMAGING * US CAROTID DUPLEX BILATERAL (07/28/2023 2:17 PM CDT) Anatomical Region Laterality Modality CAROTID, NECK Ultrasound 07/28/2023 2:45 PM CDT Impressions 07/28/2023 2:45 PM CDT Normal carotid ultrasound. Dictated by Rococ Harvey MD @ Jul 28 2023 ??2:45PM (Electronically Signed) ?? Narrative 07/28/2023 2:45 PM CDT For Patients: ??As a result of the Cures Act, medical imaging exams and procedure reports are released immediately into your electronic medical record. ??You may view this report before your referring provider. ??If you have questions, please contact your health care provider. CLINICAL HISTORY: Dizziness TECHNIQUE: The carotid circulations and the vertebral arteries in the neck were examined with de leon-scale ultrasound, color-flow and Doppler spectral analysis. Degrees of stenosis were determined using SRU 2002 Consensus Panel Criteria. FINDINGS: Sonographic images demonstrate no evidence of atherosclerotic plaque formation or suspicious soft tissue mass. ??There was antegrade blood flow demonstrated within the vertebral arteries and the subclavian arteries demonstrated a normal triphasic waveform. ??The spectral Doppler tracings of the common carotid, internal and external carotid arteries demonstrate no abnormal turbulence or spectral broadening. ??There was no significant elevation of peak systolic blood flow which would indicate a hemodynamically-significant stenosis by SRU criteria. The ICA/CCA peak systolic velocity ratio measures 1.2 on the right and 1.2 on the left. ?? Procedure Note Rocco Harvey MD - 07/28/2023 For Patients: As a result of the Cures Act, medical imagingexams and procedure reports are released immediately into your electronicmedical record. You may view this report before your referring provider.If you have questions, please contact your health care provider. CLINICAL HISTORY: Dizziness TECHNIQUE: The carotid circulations and the vertebral arteries in the neck wereexamined with de leon-scale ultrasound, color-flow and Doppler spectralanalysis. Degrees of stenosis were determined using SRU 2002 ConsensusPanel Criteria. FINDINGS: Sonographic images demonstrate no evidence of atherosclerotic plaqueformation or suspicious soft tissue mass. There was antegrade blood flowdemonstrated within the vertebral arteries and the subclavian arteriesdemonstrated a normal triphasic waveform. The spectral Doppler tracingsof the common carotid, internal and external carotid arteries demonstrateno abnormal turbulence or spectral broadening. There was no significantelevation of peak systolic blood flow which would indicate ahemodynamically-significant stenosis by SRU criteria. The ICA/CCA peaksystolic velocity ratio measures 1.2 on the right and 1.2 on the left. IMPRESSION: Normal carotid ultrasound. Dictated by Rocco Harvey MD @ Jul 28 2023 2:45PM (Electronically Signed) Bonita Arevalo MD US * XR MAMMO JANY BILAT SCREEN (07/24/2023 12:06 PM CDT) Anatomical Region Laterality Modality BREASTS, Breast Left, Breast Right Bilateral Mammography Impressions 07/24/2023 2:06 PM CDT ??There is no radiographic evidence for malignancy. ??Recommend annual mammograms. MAMMOGRAM ASSESSMENT: ??ACR 1 Negative PATIENTS: You will also receive a letter with your examination results in an easy to read format. ??If you have questions about your results, please contact your referring provider. Narrative 07/24/2023 2:06 PM CDT For Patients: As a result of the Century Cures Act, medical imaging exams and procedure reports are released immediately into your electronic medical record. You may view this report before your referring provider. If you have questions, please contact your health care provider. XR MAMMO JANY BILAT SCREEN [[id number]] CLINICAL HISTORY: ??This is an asymptomatic 78 y.o. patient. INDICATION FOR EXAM: Mammogram Screening. TECHNIQUE: CC & MLO views were obtained. ??This study was evaluated with the assistance of Computer-Aided Detection. Breast Tomosynthesis was used in interpretation. COMPARISON FILM: Yes 07/16/22 [facility] 07/12/21 [facility] FINDINGS: ??The breasts have scattered areas of fibroglandular density. There are no dominant masses, suspicious micro calcifications or areas of architectural distortion. Bonita Arevalo MD MAMMO * [place] NJX DX/THER SBST INTRLMNR LMBR/SAC W/IMG GDN (07/14/2023 12:00 AM CDT) Josh Bazzi MD PB - NERVOUS SYSTE M SERVICES from Last 3 Months Advance Directives Documents on File Type Date Recorded Patient Sprayer Automatic Spray Machine Expl anation Healthcare Directive 06/23/2012 3:05 PM [facility], [facility], 06/17/2012 Healthcare Directive 04/28/2011 HEALTH CARE DECLARATION, [facility], 10/13/2000 Latest Code Status on File Code Status Date Activated Date Inactivated Comments Full Code 04/26/2012 8:30 AM 04/26/2012 2:11 PM Code Status History Code Status Date Activated Date Inactivated Comments Full Code 04/26/2012 6:41 AM 04/26/2012 8:30 AM Care Teams Linux Server Administrator Relationship Specialty Start Date End Date Bonita Arevalo MD [address] [place] [address] PCP - General 01/13/05
--- NOTE | 2023-10-08 13:00 | MR_ITS ---
[address] [address] Phone:?[phone] Fax:?[phone] Referring Physician Information: Josh Bazzi M.D. [address] [facility] [address] Phone:?[phone] Fax:?[phone] Patient:?Marya Vance D.O.B:?1945 Sex:?Female Phone:?[phone] [facility] MRN:?[id number] Exam Date:?10/08/2023 EXAM: MRI of the RIGHT SHOULDER, without contrast CLINICAL: Female, 78 years old, with right shoulder and upper arm pain INDICATION: Evaluate for shoulder strain versus other derangement etiology. PRIOR SURGERY: Reported unspecified prior shoulder surgery. PLAIN FILMS: None available. COMPARISONS: No prior MRIs available. TECHNICAL: Using a 1.5T MR scanner and a localizing shoulder surface coil: 3.0 mm?coronal obliques: PD, T2, STIR 3.0 mm?sagittal obliques: PD, T2 3.0 mm?axials: PD, T2 SEDATION: None. CONTRAST: None. IMPRESSION: 1. Status post Achilles tendon tear repair surgery with some attenuation and longitudinal, including some full-thickness, fissuring but without demonstrable larger more defined full-thickness recurrent tear. 2. Slender subacromial-subdeltoid bursal edema/fluid with potential to represent that of bursitis although possibly related to fluid in the glenohumeral joint extending through the above questioned longitudinal rotator cuff fissuring. 3. Moderate glenohumeral chondromalacia/osteoarthritis. 4. Anterior acromioplasty and distal clavicle excision appears adequate. 5. Element of long head of biceps tendinosis, thickening, and perhaps some longitudinal fissuring and slight to mild medial subluxation, but without more prominent displacement/dislocation or tear/rupture. 6. Findings which could reflect an element of coracoid impingement including borderline narrowing of coracohumeral distance and apparent large subcoracoid bursal fluid collection. FINDINGS: Glenohumeral joint: Effusion/cyst: Physiologic glenohumeral joint effusion. No paralabral ganglion cyst. Articular cartilage: Humeral head: Expected grade II-III chondromalacia/thinning of the posterosuperior medial humeral head, without subjacent marrow edema. Glenoid: Also grade III-IV chondromalacia/thinning of the superior into central glenoid. Loose bodies: No convincing larger loose bodies although smaller debris might be difficult to exclude with certainty. Inferior glenohumeral ligament/axillary recess: The axillary recess is normal in thickness and signal. No evidence of adhesive capsulitis or capsuloligamentous injury. Labrum: Some attenuation and perhaps some irregularity of the anterior labrum, appearing to extend into the inferior and superior labrum as well, without convincing well-defined linear tear or typical Bankart/Perthes morphology, perhaps associated with the glenohumeral osteoarthritis. Bones: Proximal humerus: Metallic artifact suspect for two metallic suture anchors in the region of the anterior humeral sulcus presumed to represent residua of subjacent tear repair surgery. Slight cortical irregularity and hyperostosis and minimal subchondral cysts of the posterior greater tuberosity underlies distal insertional rotator cuff tendinosis detailed below. No humeral Hill-Sachs or reverse Hill-Sachs lesion/impaction or contusion. Glenoid: No fracture or marrow edema/pathology. No osseous Bankart lesion. Coracoacromial arch: Acromion morphology: Residua of anterior acromioplasty for decompression appears adequate. No mesoacromion or preacromion. Acromiohumeral space: Within normal limits as residua of anterior acromioplasty. Coracohumeral space: Borderline narrow. 8 mm bony distance. 7.5 mm soft tissue distance. 13 mm coracoid overlap. Acromioclavicular joint: Joint: Distal clavicle excision for decompression appears excellent. Ligaments: Coracoclavicular ligaments are intact. Bursae: Subacromial-subdeltoid: Slender subacromial-subdeltoid bursal edema/bursitis (coronal STIR series 4, images 21-10). Subcoracoid: Large fluid collection at and inferior to the subcoracoid space seems separate from the subscapularis recess, suspect for a large subcoracoid bursal fluid collection/bursitis (axial T2 series 3.1, images 10-21; sagittal T2 series 8, images 13-22). Rotator cuff and muscles/tendons: Supraspinatus: Note again made of suspected residua of supraspinatus tendon tear repair surgery. The repair site appears associated with tendinosis including some predominantly longitudinally-oriented surface fissuring, a component which is questioned to be full-thickness, but without convincing larger full-thickness recurrent tear (coronal images 7-11). No tendon or myotendinous junction retraction. Mild decreased muscle bulk and Goutallier stage 2 fatty infiltration. Infraspinatus: Mild infraspinatus tendinosis without more marked tendinopathy or defined tear. No tendon or myotendinous junction retraction. Muscle bulk appears relatively unremarkable for age. Teres minor: No tendinopathy, tear or atrophy. Subscapularis: No tendinopathy, tear or atrophy. Deltoid: No strain or atrophy. Biceps tendon, long head: Mild thickening and signal alteration suspect for mild tendinosis of the intraarticular segment longitudinal biceps tendon with the appearance of an element of splaying/fissuring, perhaps slightly medially subluxed from the bicipital sulcus, but without more prominent displacement/dislocation or tear/rupture (axial images 24-13; sagittal images 16-11). Axilla: No axillary masses or abnormally enlarged lymphadenopathy. F Electronically signed on 10/09/2023 12:43:00 PM by Kurtis Corona M.D.
== END 2023-10-08 12:45 | disposition home or self-care (01) ==
LOC: MRI 12:47
PROVIDERS: PCP Family Medicine; Visit Provider Family Medicine
DX: M25.511 Pain in right shoulder (principal); S46.911A Strain of unspecified muscle, fascia and tendon at shoulder and upper arm level, right arm, initial encounter; M75.51 Bursitis of right shoulder; M19.011 Primary osteoarthritis, right shoulder
CPT/HCPCS: 73221

== ENCOUNTER 2024-02-16 14:08 | Outpatient (CLI) | payer MEDICARE, BC, SELFPAY | END 2024-02-16 14:09 | disposition home or self-care (01) | LOC: INJ CL 14:08 | PROVIDERS: PCP Family Medicine; Visit Provider Family Medicine | DX: M54.16 Radiculopathy, lumbar region (principal); M51.36 Other intervertebral disc degeneration, lumbar region | CPT/HCPCS: 62323; J0702; Q9966 ==

== ENCOUNTER 2024-07-22 07:46 | Outpatient (CLI) | payer MEDICARE, BC, SELFPAY ==
--- OUTSIDE RECORDS SUMMARY | 2024-07-22 07:49 | XMS_ITS | Clinical Summary ---
Author Organization [facility] Address [place], [place] [address] Care Team Providers Care Electronic Imager Name Role Phone Bonita Arevalo MD Primary Care Provide r Allergies No known active allergies Medications Medication Sig Dispensed Refills Start Date End Date Status ASPIRIN 81 MG TAB, DELAYED RELEASE take 1 tablet (81 mg) by oral route once daily 0 02/24/20 08 Active multivitamin (MVI) tablet Take 1 tablet by mouth once daily. Active amoxicillin (AMOXIL) 500 mg tabletIndications:Dental root implant present Take 4 tablets or 2 grams 1 hour prior to dental work 4 Tablet 07/09/20 21 Active albuterol HFA (PRO-AIR; VENTOLIN; PROVENTIL) 90 mcg/actuation inhalerIndications:Wheez ing Inhale 1-2 Puffs by mouth every 4 hours while awake. 6.7 g 5 11/06/19 23 Active Blood Pressure Test Kit-Large (Quick Response BP Monitor) kitIndications:HTN (hypertension) As directed. 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 Max acetaminophen dose: 4000mg in 24 hrs. 24 Tablet 01/22/20 24 Active torsemide (DEMADEX) 10 mg tabletIndications:HTN (hypertension) Take 1 Tablet (10 mg) by mouth once daily. 90 Tablet 3 02/04/20 24 Active carvediloL (COREG) 12.5 mg tabletIndications:HTN (hypertension) Take 1 Tablet (12.5 mg) by mouth two times daily with meals. 180 Tablet 3 02/04/20 24 Active methylPREDNISolone (Medrol, [place],) 4 mg tabletIndications:Lumbar radiculopathy,Spinal stenosis of lumbar region with neurogenic claudication Take by mouth as instructed per packaging. 21 Tablet 06/02/20 24 Active losartan (COZAAR) 50 mg tabletIndications:HTN (hypertension) Take 1 Tablet (50 mg) by mouth once daily. 06/10/20 24 Active vitamin E, dl,tocopheryl acet, (Vitamin E, DL, Acetate,) 400 unit capsule Take 1 Capsule (400 units) by mouth once daily. 06/30/20 24 Active pravastatin (PRAVACHOL) 20 mg tabletIndications:Hyperl ipidemia, unspecified hyperlipidemia type Take 1 Tablet (20 mg) by mouth at bedtime. 90 Tablet 3 06/30/20 24 Active docusate (COLACE) 100 mg capsuleIndications:Chron ic constipation Take 1 Capsule (100 mg) by mouth once daily. 06/30/20 24 Active omeprazole (PRILOSEC) 20 mg Delayed-Release capsuleIndications:Dysph agia, unspecified type Take 1 Capsule (20 mg) by mouth once daily before a meal. Take 30 minutes prior to a meal 90 Capsule 3 07/21/20 24 Active docusate (COLACE) 100 mg capsuleIndications:Chron ic constipation Take 1 Capsule (100 mg) by mouth 2 times daily if needed for Constipation. 180 Capsule 3 11/06/19 24 024 Discontin ued(Reord er (E-cancel not sent)) colestipoL (Colestid) 1 gram tabletIndications:Pure hypercholesterolemia Take 2 Tablets (2 g) by mouth two times daily. Take 1 hour after eating 360 Tablet 2 02/04/20 024 Discontin ued(*Med complete/ Regimen complete/ Level of care change) Active Problems Problem Noted Date Diagnosed Date Nodule of upper lobe of right lung 11/06/2022 Bilateral leg edema 07/04/2022 HTN (hypertension) 07/04/2022 Major depressive disorder, single episode, mild 11/28/2021 Microscopic colitis 06/09/2017 Overview (07/28/2017): Colonoscopy 06/2017 lymphocytic colitis, polyp repeat in 5 years Lentigo maligna 03/08/2015 Mild depression 02/23/2013 Basal cell carcinoma of nose 02/03/2012 EVA 03/05/2011 AHI- 14 03/07/2011 Osteoarthritis of hip 03/11/2010 Personal history of colonic polyps 03/11/2010 Overview (03/18/2023): Colonoscopy 03/2015 polyp repeat in 5 years [...] Encounters Date Type Department Care Team Description 07/21/2024 10:45 AM CDT Office Visit [facility] [[email or web address] [address] [facility] [place] [address] Bonita Arevalo MD Headache (Have gotten better); Shortness Of Breath (No change or improvement/Tried inhaler about 1 week ago and did not notice a big improvement.) 07/20/2024 Travel 07/18/2024 3:15 PM CDT Ancillary Procedure [facility] [[email or web address]] [address] [facility] [place] [address] Arrived 07/18/2024 2:30 PM CDT Ancillary Procedure [facility] [[email or web address] [address] [facility] [address] Arrived 07/18/2024 Travel 07/16/2024 Travel 07/13/2024 Travel 06/30/2024 2:40 PM CDT Office Visit [facility] [[email or web address]] [address] [place] [address] Bonita Arevalo MD Breast Problem (Feeling a lump in the right breast); Medication Management (Cholesterol med, when and how to take) 06/30/2024 Travel 06/27/2024 Medical Messaging [facility] [[email or web address]] [address] [facility] [address] Josh Bazzi MD Back issues from Last 3 Months Immunizations Name Administration Dates Next Due COVID-19 vaccine (Moderna 100mcg/0.5mL) PF, MDV 08/27/2021 COVID-19 vaccine (Beneq-Bio NTech 30mcg/0.3mL) PF, MDV 01/01/2021 DT (Age < 7 years) 10/13/2003 DTaP 06/21/2008 Influenza A (H1N1), Inactivated 08/06/2009 Influenza A (H1N1), Inactiva alix (Age >=3 Years) 08/06/2009 Influenza, High-dose Inactivated 024,08/27/2021,06/30/2019,07/02,07/02/2018,07/09/2016,06/20/2015 Influenza, High-dose Quadriv alent Inactivated 07/03/2023,06/20/2022,08/27/2021,06/15 Influenza, IIV3 (Age 6-35 mos) 07/01/2011,2009 Influenza, IIV3 (Age >=3 years) 06/24/20 13,06/30/2012,07/01/2011,07/01,06/11/2010,07/10/2009,07/09/2006 Influenza, IIV4 08/06/2009 Influenza, Inactivated AIIV4 (Age 65+ Years) Preserv Free 06/15/2020 Influenza,CCIIV4 PRESERV FREE 07/13/2017 Pneumococcal Poly,23-Valent (Pneumovax) 03/07/2014 Pneumococcal conj 13-Valent (Prevnar 13) 07/18/2016 Pneumococcal conj 7-Valent (Prevnar 7) 6 RSV, Bivalent Vaccine Recons tituted (Abrysvo 120MCG/0.5mL) 07/07/2024 Td (Age >=7 Years) 10/13/2003 Tdap 07/02/2018 [...] PHQ-2 Answer Date Recorded PHQ-2 TOTAL SCORE 1 07/21/2024 Social Connections Answer Date Recorded Frequency of Communication with Friends and Fami ly 0 11/06/2023 Financial Resource Strain Answer Date R ecorded Difficulty of Paying Living Expenses 3 11/06/2023 Difficulty of Paying Living Expenses Not on file 11/06/2023 Food Insecurity Answer Date Recorded Do you worry your food will run out before you are able to buy more? 1 11/06/2023 Transportation Needs Answer Date Record ed Lack of Transportation (Medical) 1 11/06/2023 Housing Stability Answer Date Recorded What is your housing situation today? 1 11/06/2023 Sex and Gender Information Value Date Recorded Sex Assigned at Female 03/19/2020 6:43 AM CDT Gender Identity Female 03/19/2020 6:43 AM CDT Sexual Orientation Straight 03/19/2020 6: 43 AM CDT Obstetrics History Para Term AB IAB SAB Ectopic Multiple Livin g Live Births 2 2 2 2 Date Outcome GA Total Labor Labor/2nd/3rd Weight Sex Type Anes PTL Gabby A1 A5 Name Clin Term Term Last Filed Vital Signs Vital Sign Reading Time Taken Comments Blood Pressure 139/64 07/21/2024 10:50 AM CDT Pulse 68 07/21/2024 10:50 AM CDT Temperature 36.7 ??C (98.1 ??F) 01/22/2024 10:00 AM C DT Respiratory Rate 14 03/18/2023 9:57 AM CDT Oxygen Saturation 100% 07/21/2024 10:50 AM CDT Inhaled Oxygen Concentration - - Weight 84.8 kg (187 lb) 06/30/2024 2:51 PM CDT Height 174 cm (5' 8.5) 06/30/2024 2:51 PM CDT Body Mass Index 28.02 06/30/2024 2:51 PM CDT Plan of Treatment Upcoming Encounters Date Type Department Care Team (Late st Contact Info) Description 07/22/2024 8:20 AM CDT Office Visit [facility] [[email or web address]] at [facility] [address] [place] [phone] Josh Bazzi MD [address] [place] [address] 07/28/2024 10:00 AM CDT Ancillary Procedure [facility] [address] [place] [phone] Health Maintenance Due Date Last Done Comments Medicare Wellness for age 65+ 12/12/2023, 01/11/2021, 02/20/2011 COVID-19 vaccine series ( season) 2024 06/28/2024, 07/03/2023, 06/20/2022, Additional history exists BMI (ht and wt on same day) for age 18+ 06/30/2025 06/30/2024, 04/16/2023, 12/11/2022, Additional history exists Depression screening for age 12+ 07/21/2025 07/21/2024, 12/11/2022, 07/04/2022, Additional history exists Tetanus booster 07/02/2028 07/02/2018, 01/27 ([facility] 10/13/2003 DEXA/DXA scan for age 65+ Completed 02/01/2010 Pneumococcal series for age 65+ Completed 07/18/2016, 03/07/2014, 09/24/2006 Tdap Completed 07/02/2018 Zoster (shingles) series for age 50+ Completed 11/03/2022, 07/16/2022, 09/25/2006, Additional history exists Hepatitis C screening for ag e 18-79 Completed 12/11/2022 Influenza for age 65+ Completed 06/28/2024 , 07/03/2023, 06/20/2022, Additional history exists RSV vaccine for adults or Completed 07/07/2024 Goals Goal Patient Goal Type Associated Problems Recent Progress Patient-Stated? Author BLOOD PRESSURE - Maintains BP less than 140/90 Blood Pressure No Lisette Dacosta LPN Procedures Procedure Name Priority Date/Time Associated Diagnosis Comments COMP METABOLIC PANEL Routine 07/21/2024 12:18 PM CDT HTN (hypertension) FERRITIN Routine 07/21/2024 12:18 PM CDT SOB (shortness of breath) Low ferritin CBC WITH AUTO DIFFERENTIAL Routine 07/21/2024 12:18 PM CDT SOB (shortness of breath) US BREAST UNILATERAL RIGHT LIMITED JOHN 07/18/2024 2:45 PM CDT Breast lump on right side at 6 o'clock position XR MAMMO JANY BILAT DIAG Routine 07/18/2024 2:29 PM CDT Breast lump on right side at 6 o'clock position LC HCV ANTIBODY RFX TO QUANT PCR Routine 12/11/2022 1:25 PM CDT Encounter for hepatitis C screening test for low risk patient XR DXA BONE DENSITY 2 SITES AXIAL Routine 02/01/2010 10:51 AM CDT Postmenopausal from Last 3 Months or Most Recently Relevant to Health Maintenance Results * CBC AND DIFFERENTIAL (07/21/2024 12:18 PM CDT) WHITE BLOOD CELL COUNT 6.6 3.8 - 10.8 Thousand/u L [facility] RED BLOOD CELL COUNT 4.26 3.80 - 5.10 Million/uL [facility] HEMOGLOBIN 13.0 11.7 - 15.5 g/dL [facility] HEMATOCRIT 40.3 35.0 - 45.0 % [facility] MCV 94.6 80.0 - 100.0 fL [facility] MCH 30.5 27.0 - 33.0 pg [facility] MCHC 32.3 32.0 - 36.0 g/dL [facility] Comment: For adults, a slight decrease in the calculated MCHC value (in the range of 30 to 32 g/dL) is most likely not clinically significant; however, it should be interpreted with caution in correlation with other red cell parameters and the patient's clinical condition. RDW 12.5 11.0 - 15.0 % [facility] PLATELET COUNT 305 140 - 400 Thousand/u L [facility] MPV 11.6 7.5 - 12.5 fL [facility] ABSOLUTE NEUTROPHILS 4,316 1,500 - 7,800 cells/uL [facility] ABSOLUTE LYMPHOCYTES 1,267 850 - 3,900 cells/uL [facility] ABSOLUTE MONOCYTES 680 200 - 950 cells/uL [facility] ABSOLUTE EOSINOPHILS 277 15 - 500 cells/uL [facility] ABSOLUTE BASOPHILS 59 0 - 200 cells/uL [facility] NEUTROPHILS 65.4 % [facility] LYMPHOCYTES 19.2 % [facility] MONOCYTES 10.3 % [facility] EOSINOPHILS 4.2 % [facility] BASOPHILS 0.9 % [facility] Blood BLOOD SPECIMEN / Unknown 07/21/2024 12:18 PM CDT 07/21/2024 12:18 PM CDT Bonita Arevalo MD HEMATOLOGY [facility] [address] [place] [address], [facility] [address] [place] [address] * FERRITIN (07/21/2024 12:18 PM CDT) Pathologist [facility] FERRITIN 28 16 - 288 ng/mL [facility] Blood BLOOD SPECIMEN / Unknown 07/21/2024 12:18 PM CDT 07/21/2024 12:18 PM CDT Bonita Arevalo MD CHEMISTRY [facility] [address] [place] [address], [facility] [address] [place] [address] * (ABNORMAL) COMP METABOLIC PANEL (07/21/2024 12:18 PM CDT) [facility] GLUCOSE 121(H) 65 - 99 mg/dL [facility] Comment: ? Fasting reference interval For someone without known diabetes, a glucose value between 100 and 125 mg/dL is consistent with prediabetes and should be confirmed with a follow-up test. UREA NITROGEN (BUN) 25 7 - 25 mg/dL [facility] CREATININE 0.98 0.60 - 1.00 mg/dL [facility] EGFR 59(L) > OR = 60 mL/min/1. 73m2 [facility] BUN/CREATININE RATIO SEE NOTE: (calc) [facility] Comment: ?? Not Reported: BUN and Creatinine are within ?? reference range. ? SODIUM 142 135 - 146 mmol/L [facility] POTASSIUM 4.6 3.5 - 5.3 mmol/L [facility] CHLORIDE 104 98 - 110 mmol/L [facility] CARBON DIOXIDE 29 20 - 32 mmol/L [facility] CALCIUM 10.3 8.6 - 10.4 mg/dL [facility] PROTEIN, TOTAL 7.1 6.1 - 8.1 g/dL [facility] ALBUMIN 4.5 3.6 - 5.1 g/dL [facility] GLOBULIN 2.6 1.9 - 3.7 g/dL (calc) [facility] ALBUMIN/GLOBULIN RATIO 1.7 1.0 - 2.5 (calc) [facility] BILIRUBIN, TOTAL 0.9 0.2 - 1.2 mg/dL [facility] ALKALINE PHOSPHATASE 96 37 - 153 U/L [facility] AST 22 10 - 35 U/L [facility] ALT 26 6 - 29 U/L [facility] Blood BLOOD SPECIMEN / Unknown 07/21/2024 12:18 PM CDT 07/21/2024 12:18 PM CDT Bonita Arevalo MD CHEMISTRY Performing Organization Address City/State/[place]UST Co de Phone Number [facility] [address] [place] [address], [facility] [address] * US BREAST UNILATERAL RIGHT LIMITED (07/18/2024 2:45 PM CDT) Anatomical Region Laterality Modality BREASTS, Breast Right Right Ultrasound Narrative 07/19/2024 1:59 PM CDT For Patients: As a result of the Century Cures Act, medical imaging exams and procedure reports are released immediately into your electronic medical record. ??You may view this report before your referring provider. ?? If you have questions, please contact your health care provider. RIGHT BREAST ULTRASOUND, 07/18/2024 PLEASE SEE [id number] FOR DIGITAL BILATERAL MAMMOGRAM SAME DAY. Bonita Arevalo MD US * XR MAMMO JANY BILAT DIAG (07/18/2024 2:29 PM CDT) Anatomical Region Laterality Modality BREASTS, Breast Left, Breast Right Bilateral Mammography 07/18/2024 3:36 PM CDT Impressions 07/19/2024 1:59 PM CDT No suspicious findings. No evidence of malignancy. RECOMMENDATIONS: Annual BILATERAL screening mammography. Results and recommendations were discussed with the patient at the time of the exam. BI-RADS Category 2: Benign Dictated by: Rocco Harvey MD @07/18/2024 3:36:10 PM/stacey PATIENTS: You will also receive a letter with your examination results in an easy to read format. ??If you have questions about your results, please contact your referring provider. Narrative 07/19/2024 1:59 PM CDT For Patients: As a result of the Cures Act, medical imaging exams and procedure reports are released immediately into your electronic medical record. ??You may view this report before your referring provider. ?? If you have questions, please contact your health care provider. DIGITAL DIAGNOSTIC BILATERAL MAMMOGRAM USING TOMOSYNTHESIS, 07/18/2024 RIGHT BREAST ULTRASOUND, 07/18/2024 CLINICAL HISTORY: RIGHT breast lump. COMPARISON: 07/24/2023, 07/16/2022, 07/12/2021, 07/09/2020. TECHNIQUE: Digital BILATERAL mammogram in four projections with computer-aided detection. Tomosynthesis was used in this interpretation. Real-time ultrasound imaging of RIGHT breast with imaging documentation. BREAST COMPOSITION: There are scattered areas of fibroglandular density. FINDINGS: 3D CC/MLO BILATERAL mammogram images submitted. No suspicious masses or architectural distortion. No adenopathy or suspicious calcifications. Targeted RIGHT breast ultrasound performed in the area of concern at 6 o'clock 5 cm from the nipple. Normal fibroglandular tissue is present. No fibrocystic change or mass. Bonita Arevalo MD MAMMO * LC HCV ANTIBODY RFX TO QUANT PCR (12/11/2022 1:25 PM CDT) HCV Ab Non Reactive Non Reactive 12/13/2022 1:10 PM CDT [facility] Blood BLOOD SPECIMEN / Unknown Venipuncture / Unknown 12/11/2022 1:25 PM CDT 12/11/2022 1:30 PM CDT Narrative [facility] - 12/13/2022 1:10 PM CDT Performed at: ??01 - [facility] [address] [place], [place] [id number] Dog Beautician: Luis Carlos Gill MD, Phone: ??[phone] Bonita Arevalo MD LABORATORY [facility] ([facility]) [address] [id number], * XR DEXA BONE DENSITY 2 SITES (02/01/2010 10:51 AM CDT) Anatomical Region Laterality Modality Spine, HIPS, HIPL, HIPR Other Narrative 02/04/2010 10:45 AM CDT Please see scanned document for results of this study. Procedure Note Yesenia Torres - 02/04/2010 Please see scanned document for results of this study. Bonita Arevalo MD DEXA from Last 3 Months or Most Recently Relevant to Health Maintenance Advance Directives Documents on File Type Date Recorded Patient Road Manager Expl anation Healthcare Directive 06/23/2012 3:05 PM [facility], [facility], 06/17/2012 Healthcare Directive 04/28/2011 HEALTH CARE DECLARATION, [facility], 10/13/2000 * Full Code (Latest Code Status on File) Date Activated Date Inactivated Comments 04/26/2012 8:30 AM 04/26/2012 2:11 PM * Full Code Date Activated Date Inactivated Comments 04/26/2012 6:41 AM 04/26/2012 8:30 AM Care Teams Electronic Imager Relationship Specialty Start Date End Date Bonita Arevalo MD [address] [place] [address] PCP - General 01/13/05
--- OUTSIDE RECORDS SUMMARY | 2024-07-22 07:49 | XMS_ITS | Continuity of Care Document ---
Author Organization [facility] Address [address] [place] [address] Phone Care Team Providers Care Paper Steamer Name Role Phone Marko Dewey MD Unavailable Unavailable Allergies, Adverse Reactions, Alerts Substance Reaction Status Criticality No Known Allergies Active No Inform ation Medications Medication Instructions Dosage Effective Dates (start - stop) Status Comments multivitamin tablet - Active TORSEMIDE (unknown strength) Not Available - Active ROSUVASTATIN CALCIUM (unknown strength) Not Available - Active NAPROXEN (unknown strength) Not Available - Active MELOXICAM (unknown strength) Not Available - Active GAVISCON (unknown strength) Not Available - Active LOSARTAN POTASSIUM (unknown strength) Not Available - Active HYDROCODONE-ACETAMINOPH EN (unknown strength) Not Available - Active GABAPENTIN (unknown strength) Not Available - Active FISH OIL (unknown strength) Not Available - Active DULOXETINE HCL (unknown strength) Not Available - Active COENZYME Q10 (unknown strength) Not Available - Active CARVEDILOL (unknown strength) Not Available - Active AMLODIPINE BESYLATE (unknown strength) Not Available - Active ASPIRIN (unknown strength) Not Available - Active Procedures Procedure Date Office/Outpatient Visit,New, Mod 2018 Advance Directives Directive Yes / No Effective Date File Name No Information Encounters Encounter Description Practice Location Reason(s) For Visit Diagnoses Date Provider Providers Copied on Encounter [facility], [address], [place], [id number], [place] tel:[phone] [facility] No Information 9 Zuleima Dhaliwal [facility], [address], [place], [place], [id number] , [place]. tel:[phone] Office/Outpat ient Visit,New, [facility], [address], [place], [id number], [place] tel:[phone] [facility] Spondyl[facility]isth esis, lumbar regionSpinal stenosis, lumbar region with neurogenic claudication 0-201 9 Zuleima Zhu. [facility], [address], [place], [place], [id number] , [place]. tel:[phone] Referring Provider: Josh Ferrer, [address], [place], [address]. tel:[phone] Family History Family Member Type Diagnosis Age At Onset No Information Payers Payer name Insurance type Covered democrat ID Authoriza tifabiola(s) Medicare MB [id number] [facility] [id number] [facility] [id number] Social History Type Description Quantity Date Captured Comments Sex Female Smoking Status No Information Chief Complaint And Reason For Visit No Information Reason For Referral Reason For Referral No Information History Of Present Illness Encounter Date Complaint History Of Prese nt Illness No Information Functional Status Date Functional Assessmen t No Information Instructions Date Instruction Additional Infor mation No Information Assessments Type Assessment Date No Information Patient Care Teams Name Effective Dates (start - stop) Status Members No Information
== END 2024-07-22 07:47 | disposition home or self-care (01) ==
LOC: INJ CL 07:47
PROVIDERS: PCP Family Medicine; Visit Provider Family Medicine
DX: M54.16 Radiculopathy, lumbar region (principal); M48.062 Spinal stenosis, lumbar region with neurogenic claudication
CPT/HCPCS: 62323; J0702; Q9966

== ENCOUNTER 2025-02-17 09:56 | Outpatient (CLI) | payer MEDICARE, BC, SELFPAY | END 2025-02-17 09:57 | disposition home or self-care (01) | LOC: INJ CL 09:59 | PROVIDERS: PCP Family Medicine; Visit Provider Family Medicine | DX: M54.16 Radiculopathy, lumbar region (principal); M48.062 Spinal stenosis, lumbar region with neurogenic claudication; M51.369 Other intervertebral disc degeneration, lumbar region without mention of lumbar back pain or lower extremity pain | CPT/HCPCS: 62323; J0702; Q9966 ==

== ENCOUNTER 2025-04-10 16:52 | Outpatient (CLI) | payer MEDICARE, BC, SELFPAY | END 2025-04-10 16:53 | disposition home or self-care (01) | PROVIDERS: PCP Family Medicine; Visit Provider Student in an Organized Health Care Education/Training Program | DX: R51.9 Headache, unspecified (principal); R20.0 Anesthesia of skin; R53.1 Weakness; R41.82 Altered mental status, unspecified | CPT/HCPCS: A0425; A0427 ==

== ENCOUNTER 2025-04-10 17:24 | Emergency (ER) | payer MEDICARE, BC, SELFPAY ==
[2025-04-10] VITALS (43 sets, daily range): BP systolic 124–186; BP diastolic 62–110; PULSE 80–88; RESP 10–25; TEMP 36.7–37; O2SAT 94–99
--- OUTSIDE RECORDS SUMMARY | 2025-04-10 17:26 | XMS_ITS | Patient Health Record ---
Author Organization [facility] Address [address] [place] [address] Care Team Providers Care Stock Replenisher Name Role Phone DYANA RESENDIZ Unavailable [phone] Allergies Allergen (clinical drug ingredient) Drug/Non Drug Allergy documented on EMR Reaction Allergy Type Onset Date Status Niacin Unknown Drug Allergy Active Reason For Referral No Information Medications Medication SIG (Take, Route, Frequency, Duration) Notes Start Date End Date Status Rosuvastatin Calcium Active Meloxicam Active DULoxetine HCl Activ e Carvedilol Active Aspir-81 Active Losartan Potassium A ctive Amlodipine & Diet Manage Prod Active Torsemide Active oxyCODONE-Acetaminophen 5-325 MG 1 tablet as needed Orally every 6 hrs; Duration: 5 days 10/30/2017 Active Gabapentin 300 MG 1 capsule before bed time Orally Once a day; Duration: 30 day(s) 10/30/2017 Active Problems Problem Type SNOMED Code ICD Code Onset Dates Problem Status W/U Status Risk Notes Problem Hyperlipidemia (74403611) Hyperlipidemia, unspecified (E78.5) Active confirmed Problem Essential hypertension (63600494) Essential (primary) hypertension (I10) Active confirmed Plan Of Treatment No Information Insurance Providers Payer Name Payer Address Payer Phone Subscriber Number Group Number Insured Name Patient Relationship to Insured Coverage Start Date Coverage End Date [employer] [place] [address] [place] [phone] [id number] ESTHER ANGEL Self - patient is the insured [facility] and [facility] [address] [place] [address] [id number] ESTHER ANGEL Self - patient is the insured Medical (General) History Medical History History ICD Code HTN hyperlipidemia low back issues sleep apnea OA Surgical History Surgery Date(Month/Year) right ankle dislocation 2015
--- OUTSIDE RECORDS SUMMARY | 2025-04-10 17:26 | XMS_ITS | Clinical Summary ---
Author Organization [facility] Address [address] [place] [id number] Care Team Providers Care Inletter Name Role Phone Bonita Arevalo MD Primary Care Provide r Allergies No known active allergies Medications ASPIRIN 81 MG TAB, DELAYED RELEASE take 1 tablet (81 mg) by oral route once daily 0 02/24/20 08 Active multivitamin (MVI) tablet Take 1 tablet by mouth once daily. Active amoxicillin (AMOXIL) 500 mg tabletIndications: Dental root implant present Take 4 tablets or 2 grams 1 hour prior to dental work 4 Tablet 07/09/20 21 Active Blood Pressure Test Kit-Large (Quick Response BP Monitor) kitIndications:HTN (hypertension) As directed. Large automatic arm cuff, diagnosis hypertension diagnosis I10 1 Kit 10/05/19 24 Active vitamin E, dl,tocopheryl acet, (Vitamin E, DL, Acetate,) 400 unit capsule Take 1 Capsule (400 units) by mouth once daily. 06/30/20 24 Active krill oil 500 mg cap Take by mouth. 10/27/19 25 Active docusate (COLACE) 100 mg capsuleIndications :Chronic constipation Take 1 Capsule (100 mg) by mouth 2 times daily if needed for Constipation. 10/27/19 25 Active albuterol HFA (PRO-AIR; VENTOLIN; PROVENTIL) 90 mcg/actuation inhalerIndications :Wheezing Inhale 1-2 Puffs by mouth every 4 hours while awake. 6.7 g 5 11/14/19 Active CPAPIndications:OS A (obstructive sleep apnea) RESMED CPAP (E0601) machine for home use at pressure: 8.4-15 cmw, Choice of mask (A7030 or A7034) w/full face cushion (A7031) x1/mo, nasal cushion (A7032) x2/mo, or nasal pillows (A7033) x 2/mo; Length of Need: 99 months; Frequency of use: Daily 1 Each 01/06/20 25 Active torsemide 10 mg tabletIndications: HTN (hypertension) Take 1 Tablet (10 mg) by mouth once daily. 100 Tablet 3 01/27/20 25 Active losartan 50 mg tabletIndications: HTN (hypertension) Take 1 Tablet (50 mg) by mouth once daily. 100 Tablet 3 01/27/20 25 Active carvediloL 12.5 mg tabletIndications: HTN (hypertension) Take 1 Tablet (12.5 mg) by mouth two times daily with meals. 200 Tablet 3 01/27/20 25 Active amLODIPine 5 mg tabletIndications: HTN (hypertension) Take 1 Tablet (5 mg) by mouth once daily. 100 Tablet 3 01/27/20 25 Active pravastatin 20 mg tabletIndications: Hyperlipidemia, unspecified hyperlipidemia type Take 1 Tablet (20 mg) by mouth at bedtime. 90 Tablet 3 01/27/20 25 Active Hospital, Clinic, or Other Facility Administered Medication Ordered Dose Route Frequency Start Date End Date Status betamethasone acet,sod phos 12 mg injection (CELESTONE SOLUSPAN)Indications:Prima ry osteoarthritis of left hip 12 mg IArtic ONE TIME 03/30/2025 03/30/2025 Ended Active Problems Problem Noted Date Diagnosed Date [...] Encounters Date Type Department Care Team Description 04/10/2025 1:20 PM CDT Office Visit [facility] [address] [place] [address] Josh Bazzi MD Musculoskeletal Problem (Follow up back pain/Follow up left hip pain) 04/10/2025 Travel 04/08/2025 Travel 03/30/2025 8:10 AM CDT Procedure Only [facility] [address] [place] [address] Josh Bazzi MD Procedure (USGI -left hip intra-articular ... 03/30/2025 Travel 03/25/2025 Travel 03/21/2025 11:08 AM CDT - 03/21/2025 11:59 PM CDT Hospital Encounter [facility] [address] [place] [address] Bonita Arevalo MD Calcification of gallbladder 03/21/2025 Travel 03/17/2025 Telephone [facility] [address] [place] [address] Angel Valladares MD 03/16/2025 11:30 AM CDT Office Visit [facility] [address] [place] [address] Angel Valladares MD Follow Up (Lung nodule/BECKER) 03/16/2025 10:30 AM CDT Ancillary Procedure [facility] [address] [place] [address] 03/15/2025 Travel 03/11/2025 Travel 02/17/2025 10:20 AM CDT Office Visit [facility] [address] [place] [address] Josh Bazzi MD Procedure (L5-S1 ILESI) 02/17/2025 Travel 02/12/2025 Travel 02/08/2025 10:40 AM CDT Office Visit [facility] [address] [place] [address] Josh Bazzi MD Musculoskeletal Problem (Follow up back pain ) 02/08/2025 Travel 02/03/2025 Travel 01/26/2025 1:30 PM CDT Ancillary Procedure [facility] [address] [place] [address] 01/26/2025 12:10 PM CDT Office Visit [facility] [address] [place] [address] Bonita Arevalo MD Medicare ANNUAL (subsequent) Visit (79 yo Female/Body aches and head feels full all time.) 01/25/2025 2:45 PM CDT Orders Only [facility] [address] [place] [address] Lab, [facility] 01/25/2025 Travel 01/21/2025 Travel from Last 3 Months Immunizations Immunization Administration Dates Next Due COVID-19 vaccine (Moderna [...] Answer Date Recorded PHQ-2 TOTAL SCORE 0 01/26/2025 Social Connections Answer Date Recorded Do you often feel lonely or isolated from those around you? 0 11/06/2023 Financial Resource Strain Answer Date R ecorded Difficulty of Paying Living Expenses 3 11/06/2023 Difficulty of Paying Living Expenses Not on file 11/06/2023 Food Insecurity Answer Date Recorded Do you worry your food will run out before you are able to buy more? 1 11/06/2023 Transportation Needs Answer Date Record ed Does lack of transportation keep you from medica l appointments? 1 11/06/2023 Does lack of transportation keep you from work, meetings or getting things that you need? 1 11/06/2023 Housing Stability Answer Date Recorded What is your housing situation today? 1 11/06/2023 Utilities Answer Date Recorded Do you have trouble paying f or utilities (for example, heat, electricity, water, phone)? 1 11/06/2023 Comments No Sex and Gender Information Value Date Recorded Sex Assigned at Female 03/19/2020 6:43 AM CDT Legal Sex Female 6:20 AM [employer]ATION MA[employer] Gender Identity Female 03/19/2020 6:43 AM CDT Sexual Orientation Straight 03/19/2020 6: 43 AM CDT Occupation Industry Job Start Date Job End Date Retired Not on file Not on file Not on file Obstetrics History Para Term AB IAB SAB Ectopic Multiple Livin g Live Births 2 2 2 2 Date Outcome GA Total Labor Labor/2nd/3rd Weight Sex Type Anes PTL Gabby A1 A5 Name Clin Term Term Last Filed Vital Signs Vital Sign Reading Time Taken Comments Blood Pressure 95/55 04/10/2025 1:41 PM CDT Pulse 69 04/10/2025 1:41 PM CDT Temperature 36.7 C (98.1 F) 04/10/2025 1:41 PM CDT Respiratory Rate 16 03/16/2025 11:00 AM CDT Oxygen Saturation 98% 04/10/2025 1:41 PM CDT Inhaled Oxygen Concentration - - Weight 83.7 kg (184 lb 9.6 oz) 04/10/2025 1:41 P M CDT shoes on Height 174 cm (5' 8.5) 06/30/2024 2:51 PM CDT Body Mass Index 27.66 06/30/2024 2:51 PM CDT Plan of Treatment Upcoming Encounters Date Type Department Care Team (Late st Contact Info) Description 04/13/2025 7:25 AM CDT Office Visit [facility] [address] [place] [address] Bonita Arevalo MD [address] [place] [address] Health Maintenance Due Date Last Done Comments COVID-19 vaccine series ( season) 2024 06/28/2024, 07/03/2023, 06/20/2022, Additional history exists Influenza Vaccine (#1) 2025 , 08/27/2021, 06/15/2020, Additional history exists BMI (ht and wt on same day) for age 18+ 06/30/2025 06/30/2024, 04/16/2023, 12/11/2022, Additional history exists Depression screening for age 12+ 01/26/2026 01/26/2025, 01/26/2025, 07/22/2024, Additional history exists Medicare Wellness for age 65+ 01/27/2026 01/26/2025, 12/11/2022, 01/11/2021, Additional history exists Tetanus booster 07/02/2028 07/02/2018, 01/27 (Completed outside of [facility]), 10/13/2003 Pneumococcal series for age 50+ Completed 07/18/2016, 03/07/2014, 09/24/2006 Zoster (shingles) series for age 50+ Completed 11/03/2022, 07/16/2022, 09/25/2006, Additional history exists RSV vaccine for adults or Completed 07/07/2024 DEXA/DXA scan for age 65+ Completed 01/26/2025, 03/2010 Hepatitis B series for 19+ Aged Out N o longer eligible based on patient's age to complete this topic Goals Goal Patient Goal Type Associated Problems Recent Progress Patient-Stated? Author BLOOD PRESSURE - Maintains BP less than 140/90 Blood Pressure No Lisette Dacosta LPN Procedures Procedure Name Priority Date/Time Associated Diagnosis Comments BEDSIDE US STUDY ARCHIVE Routine 03/30/2025 9:37 AM CDT Primary osteoarthritis of left hip US ABDOMEN LIMITED GALLBLADDER Routine 03/21/2025 12:10 PM CDT Calcification of gallbladder CT CHEST WO Routine 03/16/2025 10:33 AM CDT Lung nodule AMB EPIDURAL STEROID INJECTION Routine 02/17/2025 12:00 AM CDT Spinal stenosis of lumbar region with neurogenic claudication Lumbar radiculopathy Spondylolisthesis of lumbar region XR DXA BONE DENSITY 2 SITES AXIAL Routine 01/26/2025 1:44 PM CDT Menopause LIPID PANEL W REFLEX MEASURED LDL Routine 01/25/2025 8:05 AM CDT Hyperlipidemia, unspecified hyperlipidemia type BASIC METABOLIC PANEL Routine 01/25/2025 8:05 AM CDT HTN (hypertension) HEMOGLOBIN A1C Routine 01/25/2025 8:05 AM CDT Elevated glucose VITAMIN B12 Routine 01/25/2025 8:05 AM CDT B12 deficiency CBC WITH AUTO DIFFERENTIAL Routine 01/25/2025 8:05 AM CDT B12 deficiency from Last 3 Months Results * BEDSIDE US STUDY ARCHIVE (03/30/2025 9:37 AM CDT) Narrative Glenda Mcmullen R.T. (ARRT) - 03/30/2025 9:37 AM CDT The patient was seen for ultrasound guided injection by Dr. Josh Bazzi. Ultrasound was not used for diagnostic purposes, but to guide the needle placement and document the position of the injection. See patient's EPIC encounter for the detail of the procedure; see RENNY for saved images of the injection. us Josh Bazzi MD PROCEDURE ORD Final Resu lt * US ABDOMEN LIMITED GALLBLADDER (03/21/2025 12:10 PM CDT) Anatomical Region Laterality Modality Abdomen Ultrasound 03/22/2025 6:25 AM CDT Narrative 03/22/2025 6:25 AM CDT For Patients: As a result of the Cures Act, medical imaging exams and procedure reports are released immediately into your electronic medical record. You may view this report before your referring provider. If you have questions, please contact your health care provider. INDICATION: Gallbladder wall calcification noted on recent abdominal CT. TECHNIQUE: Ultrasound abdomen, limited gallbladder. FINDINGS: There are two small focal areas of linear calcification in the gallbladder wall. No wall thickening or mass effect to suggest a neoplastic process. Incidentally noted is a tiny gallstone. CBD is normal at 3 mm. Dictated by Gianna Gomez MD @ 03/22/2025 6:25:43 AM (Electronically Signed) Procedure Note Jaziel Gomez MD - 03/22/2025 For Patients: As a result of the Cures Act, medical imagingexams and procedure reports are released immediately into your electronicmedical record. You may view this report before your referring provider.If you have questions, please contact your health care provider. INDICATION: Gallbladder wall calcification noted on recent abdominal CT. TECHNIQUE: Ultrasound abdomen, limited gallbladder. FINDINGS: There are two small focal areas of linear calcification in the gallbladderwall. No wall thickening or mass effect to suggest a neoplastic process.Incidentally noted is a tiny gallstone. CBD is normal at 3 mm. Dictated by Gianna Gomez MD @ 03/22/2025 6:25:43 AM (Electronically Signed) us Bonita Arevalo MD US Final Result * CT CHEST WO (03/16/2025 10:33 AM CDT) Anatomical Region Laterality Modality CHEST, THORAX, HEART Computed To mography 03/16/2025 10:3 3 AM CDT Impressions 03/16/2025 12:01 PM CDT 1. Irregular spiculated nodular consolidation in the right apex has not shown significant interval change in size or appearance compared with 04/18/2024. 2. Other smaller nodules in the lungs are also negative for significant interval change. 3. Calcified granulomas both lungs. 4. There are some calcifications along the gallbladder wall, one of which is new since 04/18/2024. With suspected developing gallbladder wall calcification, ultrasound is recommended to more fully evaluate. 5. Stable small rim calcified splenic artery aneurysms. Narrative 03/16/2025 12:01 PM CDT For Patients: As a result of the Cures Act, medical imaging exams and procedure reports are released immediately into your electronic medical record. You may view this report before your referring provider. If you have questions, please contact your health care provider. EXAM: CT CHEST WO LOCATION: [facility] DATE: 03/16/2025 INDICATION: Lung nodule. COMPARISON: 02/29/2024 TECHNIQUE: CT chest without IV contrast. Multiplanar reformats were obtained. Dose reduction techniques were used. CONTRAST: None. FINDINGS: LUNGS AND PLEURA: When measured at a similar location with similar technique to the study of 02/29/2024, the irregular spiculated nodular consolidation in the right apex has not shown significant interval change in size, again with measurements of approximately 3.0 x 3.2 cm on series 5, image 39. More inferiorly, some air bronchograms are again seen. This is associated with some volume loss and linear consolidation that extends to the apical pleural surface. Circumscribed 5 mm diameter nodule posterior right upper lobe on image 65 is also stable. Previously seen 4 mm diameter perivascular nodularity in the right lower lobe is also negative for significant interval change, as seen on image 123. A 4 mm diameter nodule in the posterior left apex on image 47 was previously measured at 3 mm. Scattered calcified granulomas both lungs. Mild scattered peripheral atelectasis and/or fibrosis both lungs, becoming somewhat more pronounced in the lower lungs. Central airways are widely patent. No pleural effusion. MEDIASTINUM/AXILLAE: No lymphadenopathy. No significant pericardial fluid. Normal caliber thoracic aorta and esophagus. CORONARY ARTERY CALCIFICATION: Mild. UPPER ABDOMEN: Suspected rim calcified splenic artery aneurysm near the hilum of the spleen measuring 10 mm in diameter is unchanged in size. There is likely a second smaller splenic artery aneurysm more medially measuring 7 mm, also unchanged. There are some apparent calcifications along the gallbladder wall, one of which is new since 02/29/2024. MUSCULOSKELETAL: There are some hypertrophic and degenerative changes in the spine along with mild thoracolumbar curvature. Procedure Note Dariel Ramirez MD - 03/16/2025 For Patients: As a result of the 21st Century Cures Act, medical imagingexams and procedure reports are released immediately into your electronicmedical record. You may view this report before your referring provider.If you have questions, please contact your health care provider. EXAM: CT CHEST WO LOCATION: [facility] DATE: 03/16/2025 INDICATION: Lung nodule. COMPARISON: 02/29/2024 TECHNIQUE: CT chest without IV contrast. Multiplanar reformats wereobtained. Dose reduction techniques were used. CONTRAST: None. FINDINGS: LUNGS AND PLEURA: When measured at a similar location with similartechnique to the study of 02/29/2024, the irregular spiculated nodularconsolidation in the right apex has not shown significant interval changein size, again with measurements of approximately 3.0 x 3.2 cm on series5, image 39. More inferiorly, some air bronchograms are again seen. Thisis associated with some volume loss and linear consolidation that extendsto the apical pleural surface. Circumscribed 5 mm diameter noduleposterior right upper lobe on image 65 is also stable. Previously seen 4mm diameter perivascular nodularity in the right lower lobe is alsonegative for significant interval change, as seen on image 123. A 4 mmdiameter nodule in the posterior left apex on image 47 was previouslymeasured at 3 mm. Scattered calcified granulomas both lungs. Mild scattered peripheral atelectasis and/or fibrosis both lungs, becomingsomewhat more pronounced in the lower lungs. Central airways are widelypatent. No pleural effusion. MEDIASTINUM/AXILLAE: No lymphadenopathy. No significant pericardial fluid.Normal caliber thoracic aorta and esophagus. CORONARY ARTERY CALCIFICATION: Mild. UPPER ABDOMEN: Suspected rim calcified splenic artery aneurysm near thehilum of the spleen measuring 10 mm in diameter is unchanged in size.There is likely a second smaller splenic artery aneurysm more mediallymeasuring 7 mm, also unchanged. There are some apparent calcificationsalong the gallbladder wall, one of which is new since 02/29/2024. MUSCULOSKELETAL: There are some hypertrophic and degenerative changes inthe spine along with mild thoracolumbar curvature. IMPRESSION: 1. Irregular spiculated nodular consolidation in the right apex has notshown significant interval change in size or appearance compared with04/18/2024. 2. Other smaller nodules in the lungs are also negative for significantinterval change. 3. Calcified granulomas both lungs. 4. There are some calcifications along the gallbladder wall, one of whichis new since 04/18/2024. With suspected developing gallbladder wallcalcification, ultrasound is recommended to more fully evaluate. 5. Stable small rim calcified splenic artery aneurysms. us Angel Valladares MD CT Final Res ult * AMB EPIDURAL STEROID INJECTION (02/17/2025 12:00 AM CDT) us Josh Bazzi MD NEUROLOGY ORD Final Resu lt * XR DXA BONE DENSITY 2 SITES AXIAL (01/26/2025 1:44 PM CDT) Anatomical Region Laterality Modality Spine, HIPS, HIPL, HIPR Other Impressions 02/01/2025 12:51 PM CDT Normal bone density. RECOMMENDATIONS: The National Osteoporosis Foundation recommends pharmacologic treatment for patients with T-scores of -2.5 or less, patients with prior history of fragility fractures, or patients with 10-year probability of greater than 3% at hips or greater than 20% of suffering major osteoporotic fractures. Recommend continued optimization of calcium and vitamin D intake through dietary means and/or supplementation and regular exercise. Repeat scan recommended in 3-5 years. Ruchi Pedro PA-C [facility] 02/01/2025 Narrative 02/01/2025 12:51 PM CDT For Patients: Results are automatically released to your [facility] account once available, in compliance with federal regulations. This means that you may see your results before your provider has had a chance to review them. Please allow 2-3 business days for your provider to comment on the results. XR DXA Bone Mineral Density (BMD) EXAM LOCATION: [address] [address] PATIENT NAME: Marya Vance DATE OF : 1945 EXAM DATE: 01/26/2025 REQUESTING PROVIDER: Bonita Arevalo MD GENDER AT : female HEIGHT: 5' 8.5 (06/30/2024) WEIGHT: 185 lb (01/26/2025) MENOPAUSAL STATUS: Postmenopausal RACE/ETHNICITY: White RISK FACTORS: Alcohol > 3 drinks/day (prior) and White Race CURRENT MEDICATION FOR BONE LOSS: NONE INDICATION: Post-Menopause COMPARISON DATE(S): 2009 DXA scans are compared to prior studies for a patient only when the two (or more) studies were performed on the same scanner. It is not possible to compare data generated on one scanner to data from another because there are not standards in DXA equipment. This applies even if the two scanners are made by the same lining brusher. PROCEDURE: Dual-energy x-ray absorptiometry performed with routine technique. Reporting is completed in the form of a T-score. The T-score represents the standard deviation from peak bone mass based on young healthy adult. A Z-score is used for diagnosis in premenopausal women, and for men under the age of 50. FINDINGS: RESULT LUMBAR SPINE L1 - L4 BMD: 1.575 g/cm2 T-Score: + 3.1 Z-Score: + 4.3 Change from prior: None RESULTS FEMUR Left femoral neck BMD: 0.938 g/cm2 T-Score: - 0.7 Z-Score: + 1.0 Change from prior in 2009: Decrease 9.0%. Left hip BMD: 0.998 g/cm2 T-Score: - 0.1 Z-Score: + 1.5 Change from prior in 2009: Decrease 11%. WHO criteria: Normal: T-score at or above -1 SD Osteopenia: T-score between -1.1 and -2.4 SD Osteoporosis: T-score at or below -2.5 SD Bonita Arevalo MD DEXA Final Result * HEMOGLOBIN A1C (01/25/2025 8:05 AM CDT) [facility] HEMOGLOBIN A1C 5.6 <5.7 % [facility] Comment: For the purpose of screening for the presence of diabetes: <5.7% Consistent with the absence of diabetes 5.7-6.4% Consistent with increased risk for diabetes (prediabetes) > or =6.5% Consistent with diabetes This assay result is consistent with a decreased risk of diabetes. Currently, no consensus exists regarding use of hemoglobin A1c for diagnosis of diabetes in children. According to [place] Diabetes Association (ADA) guidelines, hemoglobin A1c <7.0% represents optimal control in non- diabetic patients. Different metrics may apply to specific patient populations. Standards of Medical Care in Diabetes(ADA). Blood BLOOD SPECIMEN / Unknown 01/25/2025 8:05 AM CDT 01/25/2025 8:06 AM CDT Bonita Arevalo MD CHEMISTRY Final Result [facility] [address] [place] [address], [facility] [address] [place] [address] * (ABNORMAL) LIPID PANEL W REFLEX MEASURED LDL (01/25/2025 8:05 AM CDT) CHOLESTEROL, TOTAL 257(H) <200 mg/dL [facility] HDL CHOLESTEROL 87 > OR = 50 mg/dL [facility] TRIGLYCERIDES 76 <150 mg/dL [facility] LDL-CHOLESTEROL 152(H) mg/dL (calc) [facility] Comment: Reference range: <100 Desirable range <100 mg/dL for primary prevention; <70 mg/dL for patients with CHD or diabetic patients with > or = 2 CHD risk factors. LDL-C is now calculated using the Mj-Neela calculation, which is a validated novel method providing better accuracy than the Friedewald equation in the estimation of LDL-C. Mj MILLER et al. LUIS. 2013;310(19): 6462-2470 (http://education.Waps.cn.Cubeyou/faq/SNE771) CHOL/HDLC RATIO 3.0 <5.0 (calc) [facility] NON HDL CHOLESTEROL 170(H) <130 mg/dL (calc) [facility] Comment: For patients with diabetes plus 1 major ASCVD risk factor, treating to a non-HDL-C goal of <100 mg/dL (LDL-C of <70 mg/dL) is considered a therapeutic option. Blood BLOOD SPECIMEN / Unknown 01/25/2025 8:05 AM CDT 01/25/2025 8:06 AM CDT Bonita Arevalo MD CHEMISTRY Final Result [facility] [address] [place] [address], [facility] [address] [place] [address] * (ABNORMAL) CBC AND DIFFERENTIAL (01/25/2025 8:05 AM CDT) Pathologist [facility] WHITE BLOOD CELL COUNT 5.6 3.8 - 10.8 Thousand/u L [facility] RED BLOOD CELL COUNT 4.31 3.80 - 5.10 Million/uL [facility] HEMOGLOBIN 12.8 11.7 - 15.5 g/dL [facility] HEMATOCRIT 40.0 35.0 - 45.0 % [facility] MCV 92.8 80.0 - 100.0 fL [facility] MCH 29.7 27.0 - 33.0 pg [facility] MCHC 32.0 32.0 - 36.0 g/dL [facility] Comment: For adults, a slight decrease in the calculated MCHC value (in the range of 30 to 32 g/dL) is most likely not clinically significant; however, it should be interpreted with caution in correlation with other red cell parameters and the patient's clinical condition. RDW 14.4 11.0 - 15.0 % [facility] PLATELET COUNT 233 140 - 400 Thousand/u L [facility] MPV 10.8 7.5 - 12.5 fL [facility] ABSOLUTE NEUTROPHILS 4,116 1,500 - 7,800 cells/uL [facility] ABSOLUTE LYMPHOCYTES 683(L) 850 - 3,900 cells/uL [facility] ABSOLUTE MONOCYTES 431 200 - 950 cells/uL [facility] ABSOLUTE EOSINOPHILS 330 15 - 500 cells/uL [facility] ABSOLUTE BASOPHILS 39 0 - 200 cells/uL [facility] NEUTROPHILS 73.5 % [facility] LYMPHOCYTES 12.2 % [facility] MONOCYTES 7.7 % [facility] EOSINOPHILS 5.9 % [facility] BASOPHILS 0.7 % [facility] Blood BLOOD SPECIMEN / Unknown 01/25/2025 8:05 AM CDT 01/25/2025 8:06 AM CDT Bonita Arevalo MD HEMATOLOGY Final Result [facility] [address] [place] [address] [id number], [place] [phone] [facility] [address] [place] [address] * VITAMIN B12 (01/25/2025 8:05 AM CDT) Pathologist [facility] VITAMIN B12 554 200 - 1,100 pg/mL [facility] Blood BLOOD SPECIMEN / Unknown 01/25/2025 8:05 AM CDT 01/25/2025 8:06 AM CDT Bonita Arevalo MD CHEMISTRY Final Result [facility] [address] [place] [id number], [place] [phone] [facility] [address] [place] [address] * (ABNORMAL) BASIC METABOLIC PANEL (01/25/2025 8:05 AM CDT) GLUCOSE 107(H) 65 - 99 mg/dL [facility] Comment: Fasting reference interval For someone without known diabetes, a glucose value between 100 and 125 mg/dL is consistent with prediabetes and should be confirmed with a follow-up test. UREA NITROGEN (BUN) 24 7 - 25 mg/dL [facility] CREATININE 0.82 0.60 - 1.00 mg/dL [facility] EGFR 73 > OR = 60 mL/min/1. 73m2 [facility] BUN/CREATININE RATIO SEE NOTE: 6 - 22 (calc) [facility] Comment: Not Reported: BUN and Creatinine are within reference range. SODIUM 142 135 - 146 mmol/L [facility] POTASSIUM 4.4 3.5 - 5.3 mmol/L [facility] CHLORIDE 108 98 - 110 mmol/L [facility] CARBON DIOXIDE 27 20 - 32 mmol/L [facility] ELECTROLYTE BALANCE 7 7 - 17 mmol/L (calc) [facility] CALCIUM 10.1 8.6 - 10.4 mg/dL [facility] Blood BLOOD SPECIMEN / Unknown 01/25/2025 8:05 AM CDT 01/25/2025 8:06 AM CDT Bonita Arevalo MD CHEMISTRY Final Result [facility] [address] [place] [address], [place] [phone] [facility] [address] [place] [address] from Last 3 Months Insurance BLUE CROSS [employer] BLUE MR PB ONLY [employer] BLUE HB ONLY MEDICARE PART B HB ONLY MEDICARE PART A HB ONLY MEDICARE PART B HB ONLY BLUE [employer]OSS [employer] BLUE HB ONLY Advance Directives Documents on File Type Date Recorded Patient Cat Hooker Expl anation Healthcare Directive 06/23/2012 3:05 PM [place] [facility], [facility], 06/17/2012 Healthcare Directive 04/28/2011 HEALTH CARE DECLARATION, [facility], 10/13/2000 * Full Code (Latest Code Status on File) Date Activated Date Inactivated Comments 04/26/2012 8:30 AM 04/26/2012 2:11 PM * Full Code Date Activated Date Inactivated Comments 04/26/2012 6:41 AM 04/26/2012 8:30 AM Care Teams Inletter Relationship Specialty Start Date End Date Bonita Arevalo MD [address] [place] [address] PCP - General 01/13/05
--- NOTE | 2025-04-10 17:32 | CRLHL7_ITS ---
For Patients: As a result of the Century Cures Act, medical imaging exams and procedure reports are released immediately into your electronic medical record. You may view this report before your referring provider. If you have questions, please contact your health care provider. INDICATION: Right-sided weakness TECHNIQUE: Noncontrast axial CT of the head. Coronal and sagittal reformats. Bone and soft tissue algorithms. COMPARISON: None. FINDINGS: Prominence of the ventricles and cortical sulci compatible with generalized cerebral volume loss. No midline shift or mass effect. No acute intracranial hemorrhage or extra-axial fluid collection. [place]-white matter differentiation is grossly maintained. Calcific intracranial atherosclerotic plaquing. Midline structures are unremarkable. The calvarium appears grossly intact. Paranasal sinuses and mastoid air cells are clear. Bilateral lens implants. IMPRESSION: 1. No CT evidence of acute intracranial abnormality. Findings were discussed with Dr. Leger at 6:05pm on 04/10/2025. Please note that all CT scans at this facility use dose modulation, iterative reconstruction, and/or weight-based dosing when appropriate to reduce radiation dose to as low as reasonably achievable. Dictated by Khushboo Plata MD @ 04/10/2025 6:10:21 PM (Electronically Signed)
--- NOTE | 2025-04-10 17:32 | CRLHL7_ITS ---
For Patients: As a result of the Century Cures Act, medical imaging exams and procedure reports are released immediately into your electronic medical record. You may view this report before your referring provider. If you have questions, please contact your health care provider. DATE: 04/10/2025 CLINICAL HISTORY: Patient with focal neurological deficits. TECHNIQUE: Standard helical CT image acquisition of the neck up to the skull base after bolus intravenous contrast enhancement. 2D and 3D MIP images for post-processing were performed and interpreted on an independent workstation and 3D images were permanently archived. COMPARISON: CT same day. FINDINGS: The origins of the great vessels from the aortic arch are patent. The origin of the right vertebral artery is patent. The origin of the left vertebral artery is patent. The common carotid arteries are patent. There is a mild (50%) stenosis at the origin of the right internal carotid artery by NASCET criteria. This is caused by calcified plaque with a 2mm residual lumen. There is plaque without stenosis at the origin of the left internal carotid artery by NASCET criteria. The rest of the cervical segments of the internal carotid arteries are patent up to the skull base. The right vertebral artery is dominant. 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 The cervical segments of the right vertebral artery are patent up to the skull base. The visualized lung apices demonstrate a 2.5cm mass in the right upper lobe. The thyroid gland is unremarkable. The soft tissues of the neck are unremarkable. There are degenerative changes in the cervical spine. IMPRESSION: 1. Mild (50%) stenosis at the origin of the right internal carotid artery by NASCET criteria. This is caused by calcified plaque with a 2mm residual lumen. 2. 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 The dominant right vertebral artery is patent. 3. Indeterminate 2.5cm right upper lobe lung mass. Further evaluation with a dedicated chest CT is recommended. Please note that all CT scans at this facility use dose modulation, iterative reconstruction, and/or weight-based dosing when appropriate to reduce radiation dose to as low as reasonably achievable. Dictated by Lorenzo Montoya MD @ 04/11/2025 12:47:40 PM (Electronically Signed)
--- NOTE | 2025-04-10 17:32 | CRLHL7_ITS ---
For Patients: As a result of the Century Cures Act, medical imaging exams and procedure reports are released immediately into your electronic medical record. You may view this report before your referring provider. If you have questions, please contact your health care provider. DATE: 04/11/2025 CLINICAL HISTORY: Patient with focal neurological deficits. TECHNIQUE: Standard helical CT image acquisition through the intracranial circulation following intravenous administration of contrast material with bolus tracking. 2D and 3D MIP images for post-processing were performed and interpreted on an independent workstation and 3D images were permanently archived. COMPARISON: CT same day. FINDINGS: There is no cerebral aneurysm or large vessel occlusion. 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 There is intracranial atherosclerosis with moderate narrowing in the distal left posterior cerebral artery P2 segment. The right internal carotid artery is normal. The right middle cerebral artery and its branches are normal. The right anterior cerebral artery and its branches are normal. The left internal carotid artery is normal. The left middle cerebral artery and its branches are normal. The left anterior cerebral artery and its branches are normal. The anterior communicating artery is well visualized and appears normal. The right vertebral artery and PICA are normal. The right vertebral artery is dominant. The basilar artery is patent and appears normal. The right posterior cerebral artery is normal. The visualized venous structures are patent. IMPRESSION: 1. No cerebral aneurysm or large vessel occlusion. 2. 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 3. Intracranial atherosclerosis with moderate narrowing in the distal left posterior cerebral artery P2 segment. Please note that all CT scans at this facility use dose modulation, iterative reconstruction, and/or weight-based dosing when appropriate to reduce radiation dose to as low as reasonably achievable. Dictated by Lorenzo Montoya MD @ 04/11/2025 12:55:31 PM (Electronically Signed)
--- NOTE | 2025-04-10 17:50 | ED_ITS ---
HPI - General Adult General Date Seen: 04/10/25 Chief complaint: Neuro Symptoms/Altered Deficit Stated complaint: stroke Time Seen by Provider: 04/10/25 17:34 History of Present Illness HPI narrative: Patient is an 80-year-old here via EMS for onset of possible stroke symptoms at 4:20 a.m. this afternoon. She initially reported some vision changes, possibly a field cut, and some delayed responses to questions. EMS was called, medics a initially she was not sure that she needed to come in but they had asked about her medications and she was going to look them up on her phone and had difficulty figuring out how to use her phone. She is normally very sharp mentally so this was a distinct change and she agreed to come in. They noted a blood sugar of 190. They did note EN route to the hospital she was repeating some things, though speech sounds like it was fluent. Her gait was reported to be a little bit unstable. She does not have history of prior stroke. She is not anticoagulated and there is no reported history of atrial fibrillation. She does not smoke. Related Data Home Medications ?Medication ?Instructions ?Recorded ?Confirmed amlodipine 5 mg tablet 5 mg PO 10/28/22 11/10/23 aspirin 81 mg tablet,delayed 81 mg PO QDAY 10/28/22 release carvedilol 25 mg tablet 25 mg PO 10/28/22 11/10/23 losartan 100 mg tablet 100 mg PO QDAY 10/28/2210/29 torsemide 10 mg tablet 10 mg PO 10/28/22 11/10/23 albuterol sulfate 90 mcg/actuation 2 puff inhalation Q 6H PRN 11/10/23 11/10/23 aerosol inhaler colestipol 1 gram tablet 1 g PO BID 11/10/23 11/10/23 cyanocobalamin (vitamin B-12) 1,000 mcg PO QDAY 11/10/23 1,000 mcg capsule docusate sodium 100 mg capsule 100 mg PO BID 11/10/23 11/10/23 duloxetine 20 mg capsule,delayed 20 mg PO DAILY 11/10/23 release fluticasone propionate 50 1 spray intranasal BID 11/1011/10/23 mcg/actuation nasal spray,suspension hydrocodone 5 mg-acetaminophen 325 1 tab PO Q4H PRN 11/10/23 mg tablet Previous Rx's ?Medication ?Instructions ?Recorded methylprednisolone 4 mg tablets in See Rx Instructions PO PER PKG DIR 11/10/23 a dose pack (Medrol (Henok)) #21 ea Allergies Allergy/AdvReac Type Severity Reaction Status Date / Time No Known Drug Allergies Allergy Verified 04/10/25 17:47 Review of Systems Status of ROS: Reports: other [facility] Medical History Surgical procedure planned within 7 days Special screening examination for other specified viral diseases ?Z11.59 - Encounter for screening for other viral diseases (ICD-10) Health care directive on file (06/17/12) ?Z78.9 - Other specified health status (ICD-10) Fracture of ankle ?S82.899A - Other fracture of unspecified lower leg, initial encounter for closed fracture (ICD-10) Cellulitis ?L03.90 - Cellulitis, unspecified (ICD-10) Thoracic degenerative disc disease ?M51.34 - Other intervertebral disc degeneration, thoracic region (ICD-10) Degenerative disc disease, cervical ?M50.30 - Other cervical disc degeneration, unspecified cervical region (ICD- 10) Cervical radiculopathy ?M54.12 - Radiculopathy, cervical region (ICD-10) Lumbar spondylosis ?M47.816 - Spondylosis without myelopathy or radiculopathy, lumbar region (ICD-10) Metatarsalgia, right foot ?M77.41 - Metatarsalgia, right foot (ICD-10) Surgical History S/P trigger finger release (11/05/22) ?Z98.890 - Other specified postprocedural states (ICD-10) S/P left knee arthroscopy (10/09/05) ?Z98.890 - Other specified postprocedural states (ICD-10) Hx of thumb surgery (07/17/06) ?Z98.890 - Other specified postprocedural states (ICD-10) History of thumb surgery (09/30/06) ?Z98.890 - Other specified postprocedural states (ICD-10) Status post arthroscopy of left shoulder (05/29/10) ?Z98.890 - Other specified postprocedural states (ICD-10) S/P ORIF (open reduction internal fixation) fracture (01/03/16) ?Z98.890 - Other specified postprocedural states (ICD-10) ?Z87.81 - Personal history of (healed) traumatic fracture (ICD-10) Status post arthroscopy of right shoulder (06/16/01) ?Z98.890 - Other specified postprocedural states (ICD-10) Status post total bilateral knee replacement (2013) ?Z96.653 - Presence of artificial knee joint, bilateral (ICD-10) Status post total hip replacement, 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 Blood pressure noted to be 170 systolic per PET air medics. Patient was alert, interactive and answering questions appropriately. Moving all extremities equally, gross coordination appeared normal. She did acknowledge that she still felt somewhat ?off. Const: Vital Signs, click to edit/add: Vital Signs - 24 hr 04/10/25 17:41 04/10/25 18:08 04/10/25 18:09 Temperature 98.6 F Pulse Rate 82 80 Pulse Rate [Pulse Oximeter] 88 Respiratory Rate 16 22 13 Blood Pressure 165/71 H Blood Pressure [Ri ght Upper Arm] 172/80 H Pulse Oximetry 99 98 98 Oxygen Delivery Me thod Room Air 04/10/25 18:15 04/10/25 18:17 04/10/25 18:29 Temperature Pulse Rate 82 85 Pulse Rate [Pulse Oximeter] Respiratory Rate 16 18 Blood Pressure 176/78 H Blood Pressure [Ri ght Upper Arm] Pulse Oximetry 94 97 98 Oxygen Delivery Me thod 04/10/25 18:29 04/10/25 18:29 04/10/25 18:30 Temperature 98.0 F Pulse Rate 80 Pulse Rate [Pulse Oximeter] Respiratory Rate 18 17 12 Blood Pressure 186/88 H 186/88 H Blood Pressure [Ri ght Upper Arm] Pulse Oximetry 97 Oxygen Delivery Ks thod 04/10/25 18:31 04/10/25 18:45 04/10/25 18:47 Temperature Pulse Rate Pulse Rate [Pulse Oximeter] Respiratory Rate 23 10 L 11 L Blood Pressure 182/88 H 173/82 H Blood Pressure [Ri ght Upper Arm] Pulse Oximetry Oxygen Delivery Ks thod 04/10/25 19:00 04/10/25 19:01 04/10/25 19:15 Temperature Pulse Rate Pulse Rate [Pulse Oximeter] Respiratory Rate 12 22 13 Blood Pressure 168/78 H Blood Pressure [Ri ght Upper Arm] [facility]xim[facility] 04[facility] 19:16 04/10/25 19:30 04/10/25 19:31 Temperature Pulse Rate Pulse Rate [Pulse Oximeter] Respiratory Rate 14 15 18 Blood Pressure 167/85 H 175/86 H Blood Pressure [Ri ght Upper Arm] Pulse Oximetry [facility] 04/10/25 19:45 04/10/25 19:46 04/10/25 20:00 Temperature Pulse Rate Pulse Rate [Pulse Oximeter] Respiratory Rate 13 18 16 Blood Pressure 176/83 H Blood Pressure [Ri ght Upper Arm] Pulse Oximetry [facility] 04/10/25 20:01 04/10/25 20:02 04/10/25 20:15 Temperature Pulse Rate Pulse Rate [Pulse Oximeter] Respiratory Rate 17 19 16 Blood Pressure 170/77 H Blood Pressure [Ri ght Upper Arm] Pulse Oximetry Oxygen Delivery Ks thod 04/10/25 20:16 04/10/25 20:30 04/10/25 20:31 Temperature Pulse Rate Pulse Rate [Pulse Oximeter] Respiratory Rate 13 12 17 Blood Pressure 169/77 H 165/77 H Blood Pressure [Ri ght Upper Arm] Pulse Oximetry Oxygen Delivery Ks thod 04/10/25 20:45 04/10/25 20:46 04/10/25 21:00 Temperature Pulse Rate Pulse Rate [Pulse Oximeter] Respiratory Rate 25 H 13 12 Blood Pressure 171/83 H Blood Pressure [Ri ght Upper Arm] Pulse Oximetry Oxygen Delivery Me thod 04/10/25 21:02 04/10/25 21:15 04/10/25 21:16 Temperature Pulse Rate Pulse Rate [Pulse Oximeter] Respiratory Rate 15 14 12 Blood Pressure 149/62 H 145/68 H Blood Pressure [Ri ght Upper Arm] Pulse Oximetry Oxygen Delivery Me thod 04/10/25 21:30 04/10/25 21:31 04/10/25 21:45 Temperature Pulse Rate Pulse Rate [Pulse Oximeter] Respiratory Rate 17 16 21 Blood Pressure 156/71 H Blood Pressure [Ri ght Upper Arm] Pulse Oximetry Oxygen Delivery Me thod 04/10/25 21:46 04/10/25 22:00 04/10/25 22:01 Temperature Pulse Rate Pulse Rate [Pulse Oximeter] Respiratory Rate 23 14 23 Blood Pressure 153/68 H 124/110 H Blood Pressure [Ri ght Upper Arm] Pulse Oximetry Oxygen Delivery Me thod 04/10/25 22:08 04/10/25 22:15 04/10/25 22:16 Temperature Pulse Rate Pulse Rate [Pulse Oximeter] Respiratory Rate 17 15 14 Blood Pressure 166/87 H 163/72 H Blood Pressure [Ri ght Upper Arm] Pulse Oximetry Oxygen Delivery Me thod 04/10/25 22:30 04/10/25 22:31 04/10/25 22:45 Temperature Pulse Rate Pulse Rate [Pulse Oximeter] Respiratory Rate 13 18 15 Blood Pressure 164/76 H Blood Pressure [Ri ght Upper Arm] Pulse Oximetry Oxygen Delivery Me thod Course Course ED Course: Patient went straight from EMS to the CT scanner. While she was in the scanner I spoke with Stroke Neuro. She arrived to the hospital at 525, I was able to talk with Stroke Neuro at about 545. Dr. Paul elected to evaluate the patient directly after that. I ordered an EKG, basic labs. I did review her noncontrast head CT which by my review did not show any evidence of hemorrhage. She had a CT angiogram as well. These images are all pending a Radiology read at this time. An EKG showed a sinus rhythm, a she had some minor ST depression in lateral leads, no previous EKG available for comparison. Radiology read her head CT without contrast as unremarkable aside from age- related changes. I did talk with Dr. Paul again after her evaluation of the patient as well as discussion with patient's daughter. Patient seems to have some mild cognitive difficulties which are new for her in terms of memory and retention of information. She also in my brief interaction with her seems very unsteady on her feet. These things combined were enough that Dr. Paul felt that lytics would be recommended in her case. This was discussed with the patient and patient's daughter per Dr. Paul and they agreed to proceed. Final conversation with consent provided by Dr. Paul was at 18:15, lytics ordered at 6:20 p.m., 2 hours post onset of symptoms. I ordered lytics per protocol at 25 milligrams/kilogram. Plan will be transfer [facility] ICU thereafter. She has remained stable from a neurologic standpoint. Blood pressure prior to lytics was 172/80, most recent was 186/88, will give a dose of labetalol with goal systolic blood pressure below 180. Patient was here in the ER for multiple hours waiting for a bed. She did not note significant improvement in her symptoms, continues to have difficulty with recall of 3 items with recall of only 1, ongoing numbness on the right side. She did complain of headache, she says she has had headache on and off all day and it is no worse now, she is neurologically no worse. I do not suspect this is related to intracranial hemorrhage at this time. She had some Tylenol for that. I repeated a troponin and this is 0.14, up from 0.05. She denies any chest pain, pressure tightness today at any point including now. Critical care 60 Vital Signs Vital signs: Initial Vital Signs Temperature 98.6 F 04/10/25 17:41 Temperature Source Temporal Artery Scan 04/10/25 17:41 Pulse Rate 88 04/10/25 17:41 Respiratory Rate 16 04/10/25 17:41 Blood Pressure 172/80 H 04/10/25 17:41 Blood Pressure Mean 110 H 04/10/25 17:41 Pulse Oximetry 99 04/10/25 17:41 Oxygen Delivery Method Room Air 04/10/25 17:41 Vital Signs Temperature 98.6 F 04/10/25 17:41 Pulse Rate 88 04/10/25 17:41 Respiratory Rate 16 04/10/25 17:41 Blood Pressure 172/80 H 04/10/25 17:41 Pulse Oximetry 99 04/10/25 17:41 Oxygen Delivery Method Room Air 04/10/25 17:41 Temperature 98.0 F 04/10/25 18:29 Pulse Rate 80 04/10/25 18:29 Respiratory Rate 15 04/10/25 22:45 Blood Pressure 164/76 H 04/10/25 22:31 Pulse Oximetry 97 04/10/25 18:29 Oxygen Delivery Method Room Air 04/10/25 17:41 Medications Administered Medications: Discontinued Medications Generic Name Dose Route Start Last Admin Trade Name Anni PRN Reason Stop Dose Admin Acetaminophen 1,000 mg 04/10/25 22:09 04/10/25 22:24 Acetaminophen 500 Mg Tablet PO 04/10/25 22:10 1,000 mg ONCE ONE Administration Aspirin 324 mg 04/10/25 17:31 04/10/25 17:52 Aspirin 81 Mg Tab.Chew PO 04/10/25 17:32 324 mg ONCE ONE Administration Sodium Chloride 500 mls @ 500 mls/hr 04/10/25 17:31 04/10/25 20:30 0.9 % Sodium Chloride 500 Ml IV 04/10/25 18:30 Infused .Q1H ONE Infusion Labetalol HCl 5 mg 04/10/25 18:39 04/10/25 19:01 Labetalol Hcl 5 Mg/Ml Inj IVP 04/10/25 18:40 5 mg ONCE ONE Administration Tenecteplase 20 mg 04/10/25 18:19 04/10/25 18:42 Tenecteplase 5 Mg/Ml Inj IVP 04/10/25 18:20 20 mg ONCE ONE Administration Medical Decision Making Lab Data Labs: Lab Results 04/10/25 04/10/25 04/10/25 Range/Units 17:05 18:23 20:49 WBC 6.24 (4.50-11.00) K/uL RBC 4.32 (4.00-5.20) m/uL Hgb 12.7 (12.0-16.0) gm/dL Hct 39.4 (33.0-51.0) % MCV 91 (80-100) fL MCH 29 (26-34) pg MCHC 32 (32-36) gm/dL RDW Coeff of Dayron 13.0 (11.5-15.5) % Plt Count 212 (140-440) K/uL Neut % (Auto) 69.4 (42.0-72.0) % Lymph % (Auto) 15.1 L (20-44) % Smyth % (Auto) 9.1 (0.0-11.0) % Eos % (Auto) 5.8 (0.0-7.0) % Baso % (Auto) 0.6 (0.0-3.0) % Neut # (Auto) 4.33 (1.7-7.0) K/uL Lymph # (Auto) 0.90 (0.90-2.90) K/uL Smyth # (Auto) 0.60 (0.00-0.90) K/UL Eos # (Auto) 0.36 (0.00-0.50) K/uL Baso # (Auto) 0.04 (0.00-0.30) K/uL Abs Immat Gran (auto) 0.00 (0.00-0.30) K/uL Imm/Tot Granulo (auto) 0.0 % INR 0.96 (0.91-1.10) APTT 21 L (23-33) Seconds Sodium 140 (135-149) mmol/L Potassium 4.0 (3.6-5.1) mmol/L Chloride 104 (96-114) mmol/L Carbon Dioxide 28 (20-32) mmol/L Anion Gap 8 (7-15) mEq/L BUN 30 (7-30) mg/dL Creatinine 1.1 (0.5-1.5) mg/dL Estimated GFR 51 ml/min Glucose 113 (60-115) mg/dL Calcium 9.9 (8.4-10.6) mg/dL Troponin I 0.05 H 0.14 H* (0.01-0.04) ng/mL C-Reactive Protein < 0.5 L (0.5-1.0) mg/dL Imaging Data CT scan - head: Attestation: I have reviewed the pertinent imaging results. Radiologist's impression: Patient: Marya Vance MR#: [id number] : 1945 Acct:[id number] Loc: ED Service Date: 04/10/[address]: Ordering Physician: Radha Baumann M.D. Date of Service: 04/10/25 Procedure(s): CT head/brain wo con Accession Number(s): [id number] cc: Radha Baumann M.D.; Bonita Arevalo M.D.~ For Patients: As a result of the Century Cures Act, medical imaging exams and procedure reports are released immediately into your electronic medical record. You may view this report before your referring provider. If you have questions, please contact your health care provider. INDICATION: Right-sided weakness TECHNIQUE: Noncontrast axial CT of the head. Coronal and sagittal reformats. Bone and soft tissue algorithms. COMPARISON: None. FINDINGS: Prominence of the ventricles and cortical sulci compatible with generalized cerebral volume loss. No midline shift or mass effect. No acute intracranial hemorrhage or extra-axial fluid collection. [place]-white matter differentiation is grossly maintained. Calcific intracranial atherosclerotic plaquing. Midline structures are unremarkable. The calvarium appears grossly intact. Paranasal sinuses and mastoid air cells are clear. Bilateral lens implants. IMPRESSION: 1. No CT evidence of acute intracranial abnormality. Findings were discussed with Dr. Leger at 6:05pm on 04/10/2025. Please note that all CT scans at this facility use dose modulation, iterative reconstruction, and/or weight-based dosing when appropriate to reduce radiation dose to as low as reasonably achievable. Dictated by Khushboo Plata MD @ 04/10/2025 6:10:21 PM Discharge Plan Discharge Prescriptions: No Action amlodipine 5 mg tablet 5 mg PO torsemide 10 mg tablet 10 mg PO losartan 100 mg tablet 100 mg PO QDAY carvedilol 25 mg tablet 25 mg PO aspirin 81 mg tablet,delayed release (DR/EC) 81 mg PO QDAY Patient Comments: TAKE 1 TABLET BY MOUTH TWICE DAILY colestipol 1 gram tablet 1 g PO BID docusate sodium 100 mg capsule 100 mg PO BID cyanocobalamin (vitamin B-12) 1,000 mcg capsule 1,000 mcg PO QDAY duloxetine 20 mg capsule,delayed release(DR/EC) 20 mg PO DAILY hydrocodone-acetaminophen 5-325 mg tablet 1 tab PO Q4H PRN fluticasone propionate 50 mcg/actuation spray,suspension 1 spray intranasal BID albuterol sulfate 90 mcg/actuation HFA aerosol inhaler 2 puff inhalation Q6H PRN methylprednisolone [Medrol (Henok)] 4 mg tablets,dose pack See Rx Instructions PO PER PKG DIR Qty: 21 0RF Rx Instructions: PO PER PKG DIR Follow Up/Referrals: Bonita Arevalo MD [Primary Care Provider, Family Practice]
[2025-04-10] MEDS: 0.9 % SODIUM CHLORIDE 500 ML 500 ML IV (17:52)
[2025-04-10] MEDS: ASPIRIN 81 MG TAB.CHEW 324 MG PO (17:52)
[2025-04-10 18:01] LABS: Hematocrit 39.4 % (33.0-51.0); Hemoglobin* 12.7 gm/dL (12.0-16.0); Immature Granulocytes Abs Auto 0.00 K/uL (0.00-0.30); Immature Granulocytes Pct Auto 0.0 %; Mean Corpuscular HGB Conc 32 gm/dL (32-36); Mean Corpuscular Hemoglobin 29 pg (26-34); Mean Corpuscular Volume 91 fL (80-100); RDW Coefficient of Variation % 13.0 % (11.5-15.5); Red Blood Count 4.32 m/uL (4.00-5.20); White Blood Count* 6.24 K/uL (4.50-11.00)
[2025-04-10 18:16] LABS: Lymphocytes Absolute Auto 0.90 K/uL (0.90-2.90); Slide Review Reflex No
[2025-04-10 18:18] LABS: Chloride* 104 mmol/L (96-114); Potassium* 4.0 mmol/L (3.6-5.1); Sodium* 140 mmol/L (135-149)
[2025-04-10 18:22] LABS: Anion Gap 8 mEq/L (7-15); Blood Urea Nitrogen* 30 mg/dL (7-30); Calcium* 9.9 mg/dL (8.4-10.6); Carbon Dioxide* 28 mmol/L (20-32); Creatinine* 1.1 mg/dL (0.5-1.5); Estimated Glomerular Filt Rate 51 ml/min; Glucose* 113 mg/dL (60-115)
[2025-04-10] MEDS: TENECTEPLASE 5 MG/ML inj 20 MG IVP (18:42)
[2025-04-10] MEDS: LABETALOL HCL 5 MG/ML inj IVP (19:01)
[2025-04-10 19:41] LABS: Prothrombin Time 13.6 Seconds
[2025-04-10 19:43] LABS: INR 0.96 (0.91-1.10)
[2025-04-10] MEDS: ACETAMINOPHEN 500 MG TABLET 1000 MG PO (22:24)
== END 2025-04-10 23:05 | disposition other institution (70) ==
PROVIDERS: Emergency Provider Emergency Medicine; PCP Family Medicine
DX: G31.84 Mild cognitive impairment of uncertain or unknown etiology (principal); R26.81 Unsteadiness on feet; R20.0 Anesthesia of skin; R51.9 Headache, unspecified
CPT/HCPCS: 36415; 70450; 70496; 70498; 80048; 84484; 85025; 85610; 85730; 86140; 93005; 94761; 99291; A9270; J3101; J7030; Q9967

== ENCOUNTER 2025-04-10 22:57 | Outpatient (CLI) | payer MEDICARE, BC, SELFPAY | END 2025-04-10 22:58 | disposition home or self-care (01) | PROVIDERS: PCP Family Medicine; Visit Provider Family Medicine | DX: R53.1 Weakness (principal); R51.9 Headache, unspecified; R20.0 Anesthesia of skin | CPT/HCPCS: A0425; A0427 ==

== ENCOUNTER 2025-06-28 20:12 | Emergency (ER) | payer MEDICARE, BC, SELFPAY ==
[2025-06-28] VITALS (21 sets, daily range): BP systolic 130–167; BP diastolic 72–129; PULSE 62–152; RESP 9–21; TEMP 36.4; O2SAT 94–98; BMI 26.9
--- OUTSIDE RECORDS SUMMARY | 2025-06-28 20:15 | XMS_ITS | Clinical Summary ---
Author Organization [employer] Address Formerly [facility] [place] [address] Care Team Providers Care Octave Board Racker Name Role Phone Bonita Arevalo MD Primary Care Provide r Allergies Active Allergy Reactions Criticality Noted Date Comments Niacin Syncope,*Unknown 06/22/2008 Medications multivitamin (MVI) tablet Take 1 tablet by [...] by mouth once daily. 06/30/20 24 Active docusate (COLACE) 100 mg capsuleIndications :Chronic constipation Take 1 Capsule (100 mg) by mouth 2 times daily if needed for Constipation. 10/27/19 25 Active CPAPIndications:OS A (obstructive sleep apnea) RESMED CPAP (E0601) machine for home use at pressure: 8.4-15 cmw, Choice of mask (A7030 or A7034) w/full face cushion (A7031) x1/mo, nasal cushion (A7032) x2/mo, or nasal pillows (A7033) x 2/mo; Length of Need: 99 months; Frequency of use: Daily 1 Each 01/06/20 25 Active losartan 50 mg tabletIndications: HTN (hypertension) Take 1 Tablet (50 mg) by mouth once daily. 100 Tablet 3 01/27/20 25 Active amLODIPine 5 mg tabletIndications: HTN (hypertension) Take 1 Tablet (5 mg) by mouth once daily. 100 Tablet 3 01/27/20 25 Active Ttxis-2-DEH-EPA-Fi sh Oil (Fish OiL) 1,000 (120-180) mg cap Take 1 Capsule by mouth once daily. Active albuterol HFA (PRO-AIR; VENTOLIN; PROVENTIL) 90 mcg/actuation inhaler Inhale 2 Puffs by mouth every 4 hours if needed. Active atorvastatin (LIPITOR) 40 mg tabletIndications: Cerebrovascular accident (CVA) due to occlusion of left posterior cerebral artery (HC),Hyperlipidemi a, unspecified hyperlipidemia type Take 1 Tablet (40 mg) by mouth at bedtime. 90 Tablet 3 05/01/20 25 Active cyclobenzaprine (FLEXERIL) 5 mg tabletIndications: Right hemiparesis (HC) Take 1 Tablet (5 mg) by mouth every 8 hours if needed for Muscle Spasm. 30 Tablet 1 05/05/20 25 Active carvediloL (COREG) 12.5 mg tabletIndications: HTN (hypertension),SVT (supraventricular tachycardia) (HC) Take 12.5 mg (1 tablet) in the morning and 18.75 mg (1.5 tablets) in the evening. 225 Tablet 3 05/19/20 25 Active apixaban (Eliquis) 5 mg tabletIndications: SVT (supraventricular tachycardia) (HC),Cerebrovascul ar accident (CVA) due to occlusion of left posterior cerebral artery (HC) Take 1 Tablet (5 mg) by mouth two times daily. 180 Tablet 3 05/23/20 25 Active torsemide (DEMADEX) 10 mg tabletIndications: HTN (hypertension) Take 1.5 Tablets (15 mg) by mouth once daily. 135 Tablet 3 06/02/20 Active aspirin 81 mg tablet Take 81 mg by mouth once daily with a meal. Active torsemide 10 mg tabletIndications: HTN (hypertension) Take 1 Tablet (10 mg) by mouth once daily. 100 Tablet 3 01/27/20 25 025 Discontin ued(Reord er (E-cancel not sent)) Active Problems Problem Noted Date Diagnosed Date Paroxysmal tachycardia 06/02/2025 Cerebrovascular accident (CVA) 04/13/2025 Mitral valve prolapse 04/13/2025 Stage 3a chronic kidney disease 04/13/2025 Cerebrovascular accident (CV A) due to occlusion of left posterior cerebral artery 04/11/2025 Mitral valve regurgitation 04/11/2025 Chronic heart failure with preserved ejection fr action 04/11/2025 Nodule of upper lobe of right lung [...] lumbar casey on, without neurogenic claudication 07/17/2008 Hyperlipidemia Unspecified essential hypertension Migraine, unspecified, witho ut mention of intractable migraine without mention of status migrainosus Mitral valve disorders Encounters Date Type Department Care Team Description 06/22/2025 3:00 PM CDT Office Visit [facility] [id number] [place] [address] [address] [place] [address] Seth Snyder MD, PhD Consult (INPERSON: VALVE NEW: MR, NEEDS EKG, KCCQ12, LETTER SENT, JLS//pt states feels good with no sx - wants to know if theres anything they can do to help with the valve, thinks it contributed to her stroke ) 06/22/2025 Travel 06/13/2025 Nurse Triage [facility] [address] [place] [address] Bonita Arevalo MD Palpitations 06/08/2025 Travel 06/02/2025 11:20 AM CDT Office Visit [facility] [address] [place] [address] Bonita Arevalo MD Follow Up (Went to the pool today!/Vision a few days ago, pixel like, did not last long. B\P 146/55/Fluid in the lower legs and feet. Missed fluid pills for 3 days, somewhat better./Feeling of full head and some headaches. Headaches are more frequent since the stroke./Taking Eliquis 5mg twice a day. Started 05/23/25/Driving?) 06/01/2025 Travel 05/30/2025 1:00 PM CDT Telemedicine [facility] [address] [facility] [address] [place] [phone] Bonita Jones NP Follow Up (Stroke Neurology) 05/25/2025 Travel 05/19/2025 9:00 AM CDT Office Visit [facility] [address] [place] [phone] Rocco Ray MD Teleheart, [place] Follow Up (Mitral valve /Zio patch 04/12/25) 05/19/2025 Telephone [facility] [address] [facility] [address] [place] [phone] Rocco Ray MD Follow Up (DOA/eliquis coverage. ) 05/19/2025 Travel 05/12/2025 Telephone [facility] [address] [place] [phone] Bonita Jones NP iRhythm Alert 05/05/2025 10:05 AM CDT Office Visit [facility] [address] [place] [address] Bonita Arevalo MD Follow Up (Right sided changes. Skin feels tight and leathery. Feels like she is sitting on something./Still a little foggy head. Head feels really full.) 05/05/2025 Travel 04/30/2025 Travel 04/28/2025 Refill [facility] [address] [place] [address] Bonita Arevalo MD Refill Request (Atorvastatin Calcium Oral tablet 40mg) 04/18/2025 Orders Only [facility] Scanner 1 scan: (1-Ord) [facility] 04/17/2025 Telephone [facility] [address] [place] [phone] Bonita Jones NP Zio AT A-fib 04/15/2025 Telephone [facility] [address] [facility] [place] [address] Alf Shrestha MD 04/13/2025 7:25 AM CDT Office Visit [facility] [address] [place] [address] Bonita Arevalo MD Hospital F/U (Right sided numbness. HAs off and on. Some lightheadedness.) 04/13/2025 Telephone [facility] [address] [place] [address] Bonita Arevalo MD Questions (Appointment cancelation) 04/13/2025 Patient Outreach [facility] [address] [place] [address] Lashon Cornell, KANCHAN Hospital F/U; Primary RN Care Management (LACE 51) 04/13/2025 Patient Outreach [facility] [address] [facility] [address] [place] [address] Darshana Aranda V, RN Stroke Rehab Care Coordination - [facility] 04/12/2025 1:07 PM CDT - 04/12/2025 11:59 PM CDT Hospital Encounter [facility] [address] [facility] [place] [address] Bonita Jones NP Cerebrovascular accident (CVA) due to occlusion of left posterior cerebral artery (HC) 04/12/2025 Telephone [facility] [address] [facility] [address] [place] [phone] Bonita Jones NP Hospital F/U 04/12/2025 Travel 04/10/2025 11:56 PM CDT - 04/12/2025 2:00 PM CDT Hospital Encounter [facility] [address] [place] [address] s, U Hospitalist [facility] Cool MD Van Langen, Jose Milan MD Cerebrovascular accident (CVA) due to occlusion of left posterior cerebral artery (HC) (Primary Dx); Hyperlipidemia, unspecified hyperlipidemia type Discharge Disposition: Home Self Care 04/10/2025 1:20 PM CDT Office Visit [facility] [address] [place] [address] Josh Bazzi MD Musculoskeletal Problem (Follow up back pain/Follow up left hip pain) 04/10/2025 Orders Only [facility] Scanner 1 scan: (1-Ord) [facility], CT ANGIO HEAD, 04/10/2025 04/10/2025 Orders Only [facility] Scanner 1 scan: (1-Ord) [facility] CT ANGIO NECK, 04/10/2025 04/10/2025 Orders Only [facility] Scanner 1 scan: (1-Ord) [facility], CT ANGIO NECK, 04/10/2025 04/10/2025 Orders Only [facility] Scanner 1 scan: (1-Ord) [facility] CT HEAD/BRAIN WO CON, 04/10/2025 04/10/2025 Office Visit [facility] [address] [facility] [address] [place] [phone] Latha Rock MD Telehealth ([facility]) 04/10/2025 Travel 04/08/2025 Travel 03/30/2025 8:10 AM CDT Procedure Only [facility] [address] [place] [address] Josh Bazzi MD Procedure (USGI -left hip intra-articular ... 03/30/2025 Travel from Last 3 Months Immunizations Immunization [...] Given: Yes Alcohol Use Standard Drinks/Week Comments Not Currently 1 (1 standard drink = 0.6 oz pur e alcohol) 5-6 drinks per month PHQ-2 Answer Date Recorded PHQ-2 TOTAL SCORE 0 01/26/2025 Social Connections Answer Date Recorded Do you often feel lonely or isolated from those around you? 0 04/11/2025 Financial Resource Strain Answer Date R ecorded Difficulty of Paying Living Expenses 3 04/11/2025 Difficulty of Paying Living Expenses Not on file 04/11/2025 Food Insecurity Answer Date Recorded Do you worry your food will run out before you are able to buy more? 1 04/11/2025 Transportation Needs Answer Date Record ed Does lack of transportation keep you from medica l appointments? 1 04/11/2025 Does lack of transportation keep you from work, meetings or getting things that you need? 1 04/11/2025 Housing Stability Answer Date Recorded What is your housing situation today? 1 04/11/2025 Interpersonal Safety Answer Date Record ed Are you being hit, kicked, p ushed or yelled at (see row info)? No 04/11/2025 Interpersonal Safety Abuse 12 - 18 Not on file 04/11/2025 Interpersonal Safety Ambulatory Vulnerability No t on file 04/11/2025 Utilities Answer Date Recorded Do you have trouble paying f or utilities (for example, heat, electricity, water, phone)? 1 04/11/2025 Comments No Sex and Gender Information Value Date Recorded Sex Assigned at Female 03/19/2020 6:43 AM CDT Legal Sex Female 6:20 AM [employer] SU[employer]OR Gender Identity Female 03/19/2020 6:43 AM CDT [...] Sign Reading Time Taken Comments Blood Pressure 166/72 06/22/2025 2:55 PM CDT Pulse 69 06/22/2025 2:55 PM CDT Temperature 36.9 C (98.4 F) 04/12/2025 12:00 PM CDT Respiratory Rate 16 04/12/2025 1:00 PM CDT Oxygen Saturation 98% 06/22/2025 2:55 PM CDT Inhaled Oxygen Concentration - - Weight 82.1 kg (181 lb) 06/22/2025 2:55 PM CDT Height 172.7 cm (5' 8) 06/22/2025 2:55 PM CDT Body Mass Index 27.52 06/22/2025 2:55 PM CDT Plan of Treatment Upcoming Encounters Date Type Department Care Team (Late st Contact Info) Description 07/11/2025 11:15 AM CDT Office Visit [address] [place] [phone] Jacob Rhodes MD [address] [address] 07/11/2025 11:30 AM CDT Appointment [address] [address] 08/14/2025 8:00 AM [employer] SU[employer]OR Office Visit [facility] [address] [facility] [address] [place] [address] Seth Snyder MD, PhD [address] [address] Health Maintenance Due Date Last Done Comments COVID-19 vaccine series ( season) 2025 06/28/2024, 07/03/2023, 06/20/2022, Additional history exists Influenza Vaccine (#1) 2025 , 08/27/2021, 06/15/2020, Additional history exists Depression screening for age 12+ 01/26/2026 01/26/2025, 01/26/2025, 07/22/2024, Additional history exists Medicare Wellness for age 65+ 01/27/2026 01/26/2025, 12/11/2022, 01/11/2021, Additional history exists BMI (ht and wt on same day) for age 18+ 06/22/2026 06/22/2025, 06/30/2024, 04/16/2023, Additional history exists Tetanus booster 07/02/2028 07/02/2018, 01/27 ([facility] 10/13/2003 Pneumococcal series for age 50+ Completed [...] Procedure Name Priority Date/Time Associated Diagnosis Comments EKG 12 LEAD Today 06/22/2025 2:56 PM CDT Mitral valve insufficiency, unspecified etiology EXTENDED HOLTER Routine 04/26/2025 Cerebrovascular accident (CVA) due to occlusion of left posterior cerebral artery (HC) SCAN-EYE EXAM 04/18/2025 12:00 AM CDT SCAN CORRESP-EKG RESULTS 04/13/2025 10:56 AM CDT SCAN-CARDIAC STRIP 04/12/2025 12 :26 AM CDT EXTENDED HOLTER Routine 04/12/2025 Cerebrovascular accident (CVA) due to occlusion of left posterior cerebral artery (HC) SCAN-CARDIAC STRIP 04/11/2025 9: 55 PM CDT MR HEAD BRAIN WO Routine 04/11/2025 7:15 PM CDT ECHO TTE COMPLETE WO CONTRAST Routine 04/11/2025 1:21 PM CDT SCAN-CARDIAC STRIP 04/11/2025 8: 00 AM CDT CBC WITH AUTO DIFFERENTIAL Early AM 04/11/2025 6:09 AM CDT BASIC METABOLIC PANEL Early AM 04/11/2025 6:09 AM CDT HEMOGLOBIN A1C Early AM 04/11/2025 6:09 AM CDT CBC WITH AUTO DIFFERENTIAL Early AM 04/11/2025 6:09 AM CDT LIPID PANEL Early AM 04/11/2025 6:09 AM CDT PROTIME-INR Early AM 04/11/2025 6:09 AM CDT APTT Early AM 04/11/2025 6:09 AM CDT EKG 12 LEAD JOHN 04/11/2025 1:01 AM CDT SCAN-CARDIAC STRIP 04/11/2025 12 :29 AM CDT SCAN-CT INTERPRETATION 12:00 AM CDT SCAN-CT INTERPRETATION 5 12:00 AM CDT SCAN-CT INTERPRETATION 5 12:00 AM CDT SCAN-CT INTERPRETATION 5 12:00 AM CDT BEDSIDE US STUDY ARCHIVE Routine 03/30/2025 9:37 AM CDT Primary osteoarthritis of left hip XR DXA BONE DENSITY 2 SITES AXIAL Routine 01/26/2025 1:44 PM CDT Menopause from Last 3 Months or Most Recently Relevant to Health Maintenance Results * EKG 12 LEAD (06/22/2025 2:56 PM CDT) Only the most recent of2 resultswithin the time period is included. Interpretation Sinus rhythm with occasional Premature ventricular complexes Septal infarct (cited on or before 11-Apr-2025) Abnormal ECG When compared with ECG of 11-Apr-2025 01:01, Premature ventricular complexes are now Present Nonspecific T wave abnormality no longer evident in Inferior leads Ventricular Rate 69 BPM Atrial Rate 69 BPM P-R Interval 172 ms QRS Duration 88 ms QT 386 ms QTc 413 ms P [place] 82 degrees R [place] 38 degrees T [place] 64 degrees 06/22/2025 2:56 PM CDT 06/23/2025 7:41 AM CDT us Seth Snyder MD, PhD EKG ORD Fin al Result * ZIO PATCH AT (MCT) - high risk arrhythmia requires central monitoring. Cardiology and ED use (04/26/2025) 04/26/2025 Narrative Sergio Naidu MD - 05/22/2025 12:00 AM CDT Sinus rhythm, normal AV conduction, intermittent IVCD. Infrequent PVCs burden 2.6%, NSVT x 2, longest run was 20 beats in duration with the fastest rate of 133 bpm. There were 17 runs of non-sustained atrial tachycardia. The longest run was 25 beats in duration at a rate of 107 bpm. The fastest run was five beats long at 150 bpm. No definite atrial fibrillation. Symptomatic event showed sinus rhythm with one single PAC/PVC. Please see scan document for full report. Signed By Sergio Naidu MD Procedure Note Sergio Naidu MD - 05/22/2025 Sinus rhythm, normal AV conduction, intermittent IVCD. Infrequent PVCs burden 2.6%, NSVT x 2, longest run was 20 beats in duration with the fastestrate of 133 bpm. There were 17 runs of non-sustained atrial tachycardia. The longest runwas 25 beats in duration at a rate of 107 bpm. The fastest run was fivebeats long at 150 bpm. No definite atrial fibrillation. Symptomatic event showed sinus rhythm with one single PAC/PVC. Please see scan document for full report. Signed By Sergio Naidu MD us Bonita Jones NP CARDIAC SERVICES ORD Final Resu lt * SCAN-EYE EXAM (04/18/2025 12:00 AM CDT) us Scanner OTHER Final Result * SCAN CORRESP-EKG RESULTS (04/13/2025 10:56 AM CDT) Narrative 04/13/2025 10:56 AM CDT Ordered by an unspecified provider. us Other Clinical Staff OTHER Final Resul t * SCAN-CARDIAC STRIP (04/12/2025 12:26 AM CDT) us Scanner OTHER Final Result * ZIO PATCH AT (MCT) - high risk arrhythmia requires central monitoring. Cardiology and ED use (04/12/2025) 04/12/2025 Narrative Brigido Casanova MD - 05/14/2025 12:00 AM CDT AVG HR of 65 bpm. +Rare atrial ectopy. 22 runs of NSAT. The longest run was 11 beats with an average rate of 116 bpm and the fastest run was 8 beats with a rate of 156 bpm. +Occasional ventricular ectopy 1.7%. 2 runs of NSVT. The longest run was 8 beats with the fastest average rate up to 136 bpm. Symptomatic transmissions mostly correlated with sinus rhythm with single PACs/PVCs. No atrial fibrillation found. Please see scan document for full report. Signed By Brigido Casanova MD Procedure Note Brigido Casanova MD - 05/14/2025 AVG HR of 65 bpm. +Rare atrial ectopy. 22 runs of NSAT. The longest run was 11 beats with anaverage rate of 116 bpm and the fastest run was 8 beats with a rate of 156bpm. +Occasional ventricular ectopy 1.7%. 2 runs of NSVT. The longest run was 8beats with the fastest average rate up to 136 bpm. Symptomatic transmissions mostly correlated with sinus rhythm with singlePACs/PVCs. No atrial fibrillation found. Please see scan document for full report. Signed By Brigido Casanova MD us Bonita Jones NP CARDIAC SERVICES ORD Final Resu lt * SCAN-CARDIAC STRIP (04/11/2025 9:55 PM CDT) us Scanner OTHER Final Result * MR Head without contrast (04/11/2025 7:15 PM CDT) Anatomical Region Laterality Modality BRAIN, HEAD Magnetic Resonan ce 04/11/2025 7:15 PM CDT Impressions 04/11/2025 11:27 PM CDT 1. Small late acute to early subacute infarcts in the left FLAME CUTTER territory. 2. No new infarct or hemorrhage. Findings were discussed with Dr. Rock at 2318 hours [employer]OR on 04/11/2025. Narrative 04/11/2025 11:27 PM CDT For Patients: As a result of the Cures Act, medical imaging exams and procedure reports are released immediately into your electronic medical record. You may view this report before your referring provider. If you have questions, please contact your health care provider. EXAM: MR HEAD BRAIN WO LOCATION: [facility] MEDICAL IMAGING DATE: 04/11/2025 INDICATION: Evaluate/follow up cerebrovascular disease/ischemia. COMPARISON: 04/10/2025 TECHNIQUE: Routine multiplanar multisequence head MRI without intravenous contrast. FINDINGS: INTRACRANIAL CONTENTS: Small late acute to early subacute infarcts involving the left FLAME CUTTER territory with infarcts in the left thalamus, left hippocampus, the medial left temporal and occipital lobes, and at the left parieto-occipital junction. No mass, acute hemorrhage, or extra-axial fluid collections. Patchy and confluent nonspecific T2/FLAIR hyperintensities within the cerebral white matter and alta most consistent with moderate chronic microvascular ischemic change. Moderate generalized cerebral atrophy. No hydrocephalus. Normal position of the cerebellar tonsils. SELLA: No abnormality accounting for technique. OSSEOUS STRUCTURES/SOFT TISSUES: Normal marrow signal. The major intracranial vascular flow voids are maintained. ORBITS: Prior bilateral cataract surgeries. Visualized portions of the orbits are otherwise unremarkable. SINUSES/MASTOIDS: Mucosal thickening primarily involving the ethmoid air cells. No middle ear or mastoid effusion. Procedure Note Janneth Eason MD - 04/11/2025 For Patients: As a result of the Century Cures Act, medical imagingexams and procedure reports are released immediately into your electronicmedical record. You may view this report before your referring provider.If you have questions, please contact your health care provider. EXAM: MR HEAD BRAIN WO LOCATION: [facility] MEDICAL IMAGING DATE: 04/11/2025 INDICATION: Evaluate/follow up cerebrovascular disease/ischemia. COMPARISON: 04/10/2025 TECHNIQUE: Routine multiplanar multisequence head MRI without intravenouscontrast. FINDINGS: INTRACRANIAL CONTENTS: Small late acute to early subacute infarctsinvolving the left FLAME CUTTER territory with infarcts in the left thalamus, lefthippocampus, the medial left temporal and occipital lobes, and at the leftparieto-occipital junction. No mass, acute hemorrhage, or extra-axialfluid collections. Patchy and confluent nonspecific T2/FLAIRhyperintensities within the cerebral white matter and alta most consistentwith moderate chronic microvascular ischemic change. Moderate generalizedcerebral atrophy. No hydrocephalus. Normal position of the cerebellartonsils. SELLA: No abnormality accounting for technique. OSSEOUS STRUCTURES/SOFT TISSUES: Normal marrow signal. The majorintracranial vascular flow voids are maintained. ORBITS: Prior bilateral cataract surgeries. Visualized portions of theorbits are otherwise unremarkable. SINUSES/MASTOIDS: Mucosal thickening primarily involving the ethmoid aircells. No middle ear or mastoid effusion. IMPRESSION: 1. Small late acute to early subacute infarcts in the left PCAterritory. 2. No new infarct or hemorrhage. Findings were discussed with Dr. Rock at 2318 hours [employer] on 04/11/2025. us Latha Rock MD MR Final Resul t * ECHO TTE COMPLETE WO CONTRAST (04/11/2025 1:21 PM CDT) EJECTION FRACTION 60-65% PROSOLV Anatomical Region Laterality Modality Ultrasound 04/11/2025 12:0 0 PM CDT Narrative 04/11/2025 3:30 [place] [address] Main: [email or web address] [employer] Transthoracic Echo Report ESTHER VANCE Susancaleb ID: [id number] Age: 80 : 1945 Ordering Provider: LATHA ROCK Exam Date: 04/11/2025 12:00 Gender: F Wiping Rag Washer: MAIA Height: 69 in BSA: 1.99 m BP: 154 / 74 Weight: 184 lbs BMI: 27.2 kg/m HR: 69 Location: Inpatient (Portable) Rhythm: Normal Sinus Rhythm, With PVC Procedure Components: 2D imaging, Color Doppler, Spectral Doppler Indications: CVA Technical Quality: Adequate Contrast: None Final Conclusion 1. Normal left ventricular chamber size. Normal left ventricular systolic function. Calculated left ventricular ejection fraction (modified Waller technique) is 60 %. No regional wall motion abnormalities. 2. Normal right ventricular chamber size. Normal right ventricular systolic function. 3. Severe left atrial enlargement 4. Moderate to severe mitral valve regurgitation. 5. Dilated inferior vena cava with normal collapse. 6. No comparison study Estimated EF: 60-65% FINDINGS Left Ventricle Normal left ventricular chamber size. Normal left ventricular systolic function. Calculated left ventricular ejection fraction (modified Waller technique) is 60 %. No regional wall motion abnormalities. Diastolic Function Indeterminate left ventricular diastolic function. Right Ventricle Normal right ventricular chamber size. Normal right ventricular systolic function. Right ventricular systolic pressure cannot be estimated due to inability to detect peak tricuspid regurgitation Doppler velocity. Left Atrium Severe left atrial enlargement. Right Atrium Right atrial enlargement. Atrial Septum No evidence of inter-atrial shunt by color flow Doppler. Aortic Valve Sclerotic tricuspid aortic valve. No aortic valve stenosis. No aortic valve regurgitation. Mitral Valve Dilated mitral valve annulus. Moderate to severe mitral valve regurgitation. Tricuspid Valve Normal tricuspid valve. Trace tricuspid valve regurgitation. Pulmonic Valve Normal pulmonary valve. No pulmonary valve regurgitation. Pericardium No pericardial effusion. Aorta Aortic sinus of Valsalva is normal in size (3.5 cm, ZScore = -0.1). Normal indexed ascending aorta dimension (3.2 cm, 1.6 cm/m ). Inferior Vena Cava Dilated inferior vena cava with normal collapse. MEASUREMENTS (Male / Female) Normal Values 2D MEASUREMENTS AND LV FUNCTION IVS Diastolic Thickness 1.03 cm < 1.1 cm / < 1.0 cm LV Diastolic Diameter PLAX 5.21 cm 4.2 - 5.9 / 3.9 - 5.3 cm LV Diastolic Diameter Index 2.61 cm/m LVPW Diastolic Thickness 1.23 cm < 1.1 cm / < 1.0 cm LV Systolic Diameter PLAX 3.74 cm LV Systolic Diameter Index 1.88 cm/m LVOT Diameter 2 cm LVOT Cardiac Output 5.94 l/min LVOT Cardiac Index 2.92 l/min m LVOT Stroke Volume 86.1 ml Stroke Volume Index 42.4 ml/m LV Ejection Fraction MOD BP 60 % >= 55 % LA Area 4C View 30.1 cm LA Length 4C 6.6 cm LA Area 2C View 29.1 cm LA Length 2C 6.56 cm LA Volume MOD BP 108 ml LA Volume Index MOD BP 54.2 ml/m 16 - 34 ml/m RV Diastolic Basal Diameter 3.68 cm RV Diastolic Mid Diameter 1.93 cm LV Mass 230 g LV Mass Index 114 g/m Sinuses of Valsalva Diameter(d) 3.5 cm Ascending Aorta Diameter(s) 3.2 cm IVC Diameter Expiration 2.22 cm Ascending Aorta Index 1.61 cm/m M MODE TAPSE MM 2.9 cm DIASTOLOGY Mitral E Point Velocity 0.764 m/sec 0.70 - 1.02 m/sec Mitral A Point Velocity 0.312 m/sec 0.06 - 1.06 m/sec Mitral E to A Ratio 2.45 1.1 - 2.1 MV Deceleration Time 116 msec 167 - 231 msec LV E' Lateral Velocity 0.0783 m/sec Mitral E to LV E' Lateral Ratio 9.76 LV E' Septal Velocity 0.0598 m/sec Mitral E to LV E' Septal Ratio 12.8 AORTIC VALVE AV Peak Velocity 1.61 m/sec < 2.0 m/sec AV Peak Gradient 10.4 mmHg AV Mean Gradient 5 mmHg AV Velocity Time Integral 32.5 cm LVOT Peak Velocity 1.35 m/sec LVOT Velocity Time Integral 27.4 cm AV Area Cont Eq vti 2.65 cm AV Area Cont Eq pk 2.63 cm AV Dimensionless Index 0.843 MITRAL VALVE MR Peak Velocity 573 cm/sec MR Velocity Time Integral 204 cm MR ERO PISA 0.259 cm TRICUSPID VALVE AND ESTIMATED PRESSURES Right Atrial Pressure 8 mmHg HCM DATA LVOT DIONNE (r) 7.29 mmHg Aortic Root ZScore: -0.10 Do Kramer MD (Electronically Signed) [facility] Accredited Site Final Date: 11 April 2025 15:29 ICD-10 Codes: 436 Procedure Note Do Kramer MD - 04/11/2025 [place] [address] Main: [email or web address] [facility]horacic Echo Report ESTHER VANCE ID: [id number] Age: 80 : 1945 Ordering Provider:LATHA ROCK Exam Date: 04/11/2025 12:00 Gender: F [employer]her: MAIA Height: 69 in BSA: 1.99 m BP: 154 / 74 Weight: 184 lbs BMI: 27.2 kg/m HR: 69 Location: Inpatient (Portable) Rhythm: Normal Sinus Rhythm, With PVC Procedure Components: 2D imaging, Color Doppler, Spectral Doppler Indications: CVA Technical Quality: Adequate Contrast: None Final Conclusion 1. Normal left ventricular chamber size. Normal left ventricular systolicfunction. Calculated left ventricular ejection fraction (modified Waller technique) is 60 %. No regional wall motion abnormalities. 2. Normal right ventricular chamber size. Normal right ventricularsystolic function. 3. Severe left atrial enlargement 4. Moderate to severe mitral valve regurgitation. 5. Dilated inferior vena cava with normal collapse. 6. No comparison study Estimated EF: 60-65% FINDINGS Left Ventricle Normal left ventricular chamber size. Normal leftventricular systolic function. Calculated left ventricular ejection fraction (modified Waller technique) is 60 %. No regional wall motionabnormalities. Diastolic Function Indeterminate left ventricular diastolic function. Right Ventricle Normal right ventricular chamber size. Normal rightventricular systolic function. Right ventricular systolic pressure cannot be estimated due to inability to detect peak tricuspidregurgitation Doppler velocity. Left Atrium Severe left atrial enlargement. Right Atrium Right atrial enlargement. Atrial Septum No evidence of inter-atrial shunt by color flow Doppler. Aortic Valve Sclerotic tricuspid aortic valve. No aortic valve stenosis.No aortic valve regurgitation. Mitral Valve Dilated mitral valve annulus. Moderate to severe mitralvalve regurgitation. Tricuspid Valve Normal tricuspid valve. Trace tricuspid valveregurgitation. Pulmonic Valve Normal pulmonary valve. No pulmonary valveregurgitation. Pericardium No pericardial effusion. Aorta Aortic sinus of Valsalva is normal in size (3.5 cm, ZScore = -0.1).Normal indexed ascending aorta dimension (3.2 cm, 1.6 cm/m ). Inferior Vena Cava Dilated inferior vena cava with normal collapse. MEASUREMENTS (Male / Female) Normal Values 2D MEASUREMENTS AND LV FUNCTION IVS Diastolic Thickness 1.03 cm < 1.1 cm / < 1.0cm LV Diastolic Diameter PLAX 5.21 cm 4.2 - 5.9 / 3.9 -5.3 cm LV Diastolic Diameter Index 2.61 cm/m LVPW Diastolic Thickness 1.23 cm < 1.1 cm / < 1.0cm LV Systolic Diameter PLAX 3.74 cm LV Systolic Diameter Index 1.88 cm/m LVOT Diameter 2 cm LVOT Cardiac Output 5.94 l/min LVOT Cardiac Index 2.92 l/min m LVOT Stroke Volume 86.1 ml Stroke Volume Index 42.4 ml/m LV Ejection Fraction MOD BP 60 % >= 55 % LA Area 4C View 30.1 cm LA Length 4C 6.6 cm LA Area 2C View 29.1 cm LA Length 2C 6.56 cm LA Volume MOD BP 108 ml LA Volume Index MOD BP 54.2 ml/m 16 - 34 ml/m RV Diastolic Basal Diameter 3.68 cm RV Diastolic Mid Diameter 1.93 cm LV Mass 230 g LV Mass Index 114 g/m Sinuses of Valsalva Diameter(d) 3.5 cm Ascending Aorta Diameter(s) 3.2 cm IVC Diameter Expiration 2.22 cm Ascending Aorta Index 1.61 cm/m M MODE TAPSE MM 2.9 cm DIASTOLOGY Mitral E Point Velocity 0.764 m/sec 0.70 - 1.02m/sec Mitral A Point Velocity 0.312 m/sec 0.06 - 1.06m/sec Mitral E to A Ratio 2.45 1.1 - 2.1 MV Deceleration Time 116 msec 167 - 231 msec LV E' Lateral Velocity 0.0783 m/sec Mitral E to LV E' Lateral Ratio 9.76 LV E' Septal Velocity 0.0598 m/sec Mitral E to LV E' Septal Ratio 12.8 AORTIC VALVE AV Peak Velocity 1.61 m/sec < 2.0 m/sec AV Peak Gradient 10.4 mmHg AV Mean Gradient 5 mmHg AV Velocity Time Integral 32.5 cm LVOT Peak Velocity 1.35 m/sec LVOT Velocity Time Integral 27.4 cm AV Area Cont Eq vti 2.65 cm AV Area Cont Eq pk 2.63 cm AV Dimensionless Index 0.843 MITRAL VALVE MR Peak Velocity 573 cm/sec MR Velocity Time Integral 204 cm MR ERO PISA 0.259 cm TRICUSPID VALVE AND ESTIMATED PRESSURES Right Atrial Pressure 8 mmHg HCM DATA LVOT DIONNE (r) 7.29 mmHg Aortic Root ZScore: -0.10 Do Kramer MD (Electronically Signed) [facility] Accredited Site Final Date: 11 April 2025 15:29 ICD-10 Codes: 436 us Latha Rock MD ECHO ORD Final Resul t * SCAN-CARDIAC STRIP (04/11/2025 8:00 AM CDT) us Scanner OTHER Final Result * (ABNORMAL) CBC WITH AUTO DIFFERENTIAL (04/11/2025 6:09 AM CDT) WHITE BLOOD COUNT 7.0 4.5 - 11.0 thou/cu mm 04/11/2025 6:29 AM T [facility] RED BLOOD COUNT 3.79(L) 4.00 - 5.20 mil/cu mm 04/11/2025 6:29 AM T [facility] HEMOGLOBIN 11.2(L) 12.0 - 16.0 g/dL 04/11/2025 6:29 AM T [facility] HEMATOCRIT 33.9 33.0 - 51.0 % 04/11/2025 6:29 AM T [facility] MCV 89 80 - 100 fL 04/11/2025 6:29 AM T [facility] MCH 29.6 26.0 - 34.0 pg 04/11/2025 6:29 AM [facility] MCHC 33.0 32.0 - 36.0 g/dL 04/11/2025 6:29 AM [facility] RDW 13.2 11.5 - 15.5 % 04/11/2025 6:29 AM [facility] PLATELET COUNT 167 140 - 440 thou/cu mm 04/11/2025 6:29 AM [facility] MPV 10.6 6.5 - 11.0 fL 04/11/2025 6:29 AM [facility] NRBC 0.0 % 04/11/2025 6:29 AM [facility] ABS NRBC 0.0 thou /cu mm 04/11/2025 6:29 AM [facility] % NEUT 73.0 % 04/11/2025 6:29 AM [facility] % LYMPH 15.2 % 04/11/2025 6:29 AM [facility] % MONO 7.5 % 04/11/2025 6:29 AM [facility] % EOS 3.6 % 04/11/2025 6:29 AM [facility] % BASO 0.6 % 04/11/2025 6:29 AM [facility] % IMMATURE GRAN (METAS,MYELOS,ND OS) 0.1 % 04/11/2025 6:29 AM [facility] ABSOLUTE NEUTROPHILS 5.1 1.7 - 7.0 thou/cu mm 04/11/2025 6:29 AM [facility] ABSOLUTE LYMPHOCYTES 1.1 0.9 - 2.9 thou/cu mm 04/11/2025 6:29 AM [facility] ABSOLUTE MONOCYTES 0.5 <0.9 thou/cu mm 04/11/2025 6:29 AM [facility] ABSOLUTE EOSINOPHILS 0.3 <0.5 thou/cu mm 04/11/2025 6:29 AM [facility] ABSOLUTE BASOPHILS 0.0 <0.3 thou/cu mm 04/11/2025 6:29 AM [facility] ABSOLUTE IMMATURE GRANULOCYTES(MET ,MYELOS,PROS) 0.0 <0.3 thou/cu mm 04/11/2025 6:29 AM [facility] Blood BLOOD SPECIMEN / Unknown Venipuncture / Unknown 04/11/2025 6:09 AM CDT 04/11/2025 6:25 AM CDT Latha Rock MD HEMATOLOGY Final Resul t Performing Organization Address [facility] de Phone Number [facility] SENDOUT [place] ZIP [phone] [place] [address] * Hemoglobin A1C Screening (04/11/2025 6:09 AM CDT) HEMOGLOBIN A1C SCREENING 5.4 <=6.4 % 04/11/2025 7:21 AM CDT [facility] Blood BLOOD SPECIMEN / Unknown Venipuncture / Unknown 04/11/2025 6:09 AM CDT 04/11/2025 6:25 AM CDT Narrative [facility] - 04/11/2025 7:21 AM CDT (<5.7%) Normal (5.7% to 6.4%) Indicates prediabetes (>=6.5%) Confirms diabetes Falsely low levels may be seen with: Recent Transfusion, Recent Significant Blood Loss, Hemolytic Diseases, or Falsely elevated levels may be seen with: Untreated Anemias, Splenectomy Latha Rock MD CHEMISTRY Final Resul t Performing Organization Address [facility] de Phone Number [facility] SENDOUT [place]IP [phone] [place] [phone] * aPTT (04/11/2025 6:09 AM CDT) APTT 27 25 - 36 sec 04/11/2025 7:18 AM CDT [facility] Blood BLOOD SPECIMEN / Unknown Venipuncture / Unknown 04/11/2025 6:09 AM CDT 04/11/2025 6:25 AM CDT Narrative [facility] - 04/11/2025 7:18 AM CDT Therapeutic Range: 59-89 seconds Latha Rock MD HEMATOLOGY Final Resul t Performing Organization Address City/[facility]/ZIP Co de Phone Number [facility] SENDOUT [place] ZIP [phone] [place] [address] * Protime - INR (04/11/2025 6:09 AM CDT) Pathologist [facility] INR 1.0 <1.3 04/11/2025 7:17 AM T [facility] PROTIME 11.8 10.6 - 12.4 sec 04/11/2025 7:17 AM T [facility] Blood BLOOD SPECIMEN / Unknown Venipuncture / Unknown 04/11/2025 6:09 AM CDT 04/11/2025 6:25 AM CDT [facility] - 04/11/2025 7:17 AM CDT Therapeutic Range 2.0-3.0 for most anticoagulated patients 2.5-3.5 or 4.0 for high risk patients The INR is only used for patients on stable oral anticoagulant therapy. It makes no significant contribution to the diagnosis or treatment of patients whose Protime is prolonged for other reasons. INR results are increased when heparin levels exceed 1.0 U/mL, which corresponds to an aPTT >125 seconds if the patient is on UFH. us Latha Rock MD HEMATOLOGY Final Resul t Performing Organization Address [facility]/ZIP Co de Phone Number [facility] SENDOUT [place] ZIP [phone] [place] [address] * (ABNORMAL) Lipid Panel (04/11/2025 6:09 AM CDT) CHOLESTEROL,TOTAL 223(H) 100 - 199 mg/dL 04/11/2025 6:52 AM T [facility] Comment: Cholesterol, Total Reference Ranges Desirable <200 mg/dL Borderline 200-239 mg/dL High >=240 mg/dL TRIGLYCERIDES 60 <150 mg/dL 04/11/2025 6:52 AM T [facility] HDL CHOLESTEROL 76 >40 mg/dL 6:52 AM T [facility] NON-HDL CHOLESTEROL 147(H) <145 mg/dl 04/11/2025 6:52 AM T [facility] CHOL/HDL RATIO 2.93 <4.50 04/11/2025 6:52 AM [facility] LDL CHOLESTEROL 135(H) <=130 mg/dL 04/11/2025 6:52 AM [facility] VLDL CHOLESTEROL 12 <=30 mg/dL 04/11/2025 6:52 AM [facility] PROVIDER ORDERED STATUS RANDOM 04/11/2025 6:52 AM [facility] Blood BLOOD SPECIMEN / Unknown Venipuncture / Unknown 04/11/2025 6:09 AM CDT 04/11/2025 6:25 AM T us Latha Rock MD CHEMISTRY Final Resul t [facility] SENDOUT INTERNAL ZIP [phone] [place] [address] * (ABNORMAL) BASIC METABOLIC PANEL (04/11/2025 6:09 AM T) SODIUM 143 136 - 145 mmol/L 04/11/2025 6:52 AM [facility] POTASSIUM 4.6 3.5 - 5.1 mmol/L 04/11/2025 6:52 AM [facility] CHLORIDE 111(H) 98 - 107 mmol/L 04/11/2025 6:52 AM [facility] CO2,TOTAL 24 22 - 29 mmol/L 04/11/2025 6:52 AM [facility] ANION GAP 8 5 - 18 04/11/2025 6:52 AM [facility] GLUCOSE 105(H) 70 - 99 mg/dL 04/11/2025 6:52 AM [facility] CALCIUM 9.5 8.8 - 10.4 mg/dL 04/11/2025 6:52 AM [facility] Comment: Reference ranges for this test were updated on 08/02/2024 to reflect our healthy population more accurately. Reference range changes are not retroactively applied to results, but previous results using the same methodology can be interpreted in the context of the new reference range. BUN 20 8 - 23 mg/dL 04/11/2025 6:52 AM [facility] CREATININE 0.98(H) 0.50 - 0.90 mg/dL 04/11/2025 6:52 AM [facility] BUN/CREAT RATIO 20 10 - 20 6:52 AM CDT [facility] eGFR 58(L) >90 mL/min/1. 73m2 04/11/2025 6:52 AM CDT [facility] Comment:As of 2021, eG FR is calculated by the CKD-EPI creatinine equation without race adjustment. eGFR can be influenced by muscle mass, exercise, and diet. The reported eGFR is an estimation only and is only applicable if the renal function is stable. Blood BLOOD SPECIMEN / Unknown Venipuncture / Unknown 04/11/2025 6:09 AM CDT 04/11/2025 6:25 AM CDT us Wm Cool MD CHEMISTRY Final Resu lt [facility] SENDOUT INTERNAL ZIP [phone] [place] [phone] * SCAN-CARDIAC STRIP (04/11/2025 12:29 AM CDT) us Scanner OTHER Final Result * SCAN-CT INTERPRETATION (04/10/2025 12:00 AM CDT) Only the most recent of4 resultswithin the time period is included. Anatomical Region Laterality Modality Other us Scanner OTHER Final Result * BEDSIDE US STUDY ARCHIVE (03/30/2025 9:37 [...] MD PROCEDURE ORD Final Resu lt * XR DXA [...] recommended in 3-5 years. Ruchi Pedro PA-C [facility] 02/01/2025 Narrative 02/01/2025 12:51 PM CDT For Patients: Results are automatically released to your [facility] ([employer]) account once available, in compliance with federal regulations. This means that you may see your results before your provider has had a chance to review them. Please allow 2-3 business days for your provider to comment on the results. XR DXA Bone Mineral Density (BMD) EXAM LOCATION: [address] [address] PATIENT NAME: Esther Vance DATE OF : 1945 EXAM DATE: [...] two scanners are made by the same pharmacy technician inpatient. PROCEDURE: Dual-energy x-ray absorptiometry performed with routine [...] SD Bonita Arevalo MD DEXA Final Result from Last 3 Months or Most Recently Relevant to Health Maintenance Insurance [place] BLUE MR PB ONLY [place] BLUE HB ONLY MEDICARE PART B HB ONLY MEDICARE PART A HB ONLY MEDICARE PART A HB ONLY MEDICARE PART B HB ONLY [place] BLUE HB ONLY Advance Directives Documents on File Type Date Recorded Patient National Account Director Expl anation Healthcare Directive 06/23/2012 3:05 PM [place] [facility], [facility], 06/17/2012 Healthcare Directive 04/28/2011 Olvin Vance, Nick Harrison * Full Code (Latest Code Status on File) Date Activated Date Inactivated Comments 04/11/2025 12:41 AM 04/12/2025 4:33 PM Question Answer Comments Code Status Discussion: Reviewed Preferences * Full Code Date Activated Date Inactivated Comments 04/26/2012 8:30 AM 04/26/2012 2:11 PM * Full Code Date Activated Date Inactivated Comments 04/26/2012 6:41 AM 04/26/2012 8:30 AM Care Teams [employer] Racker Relationship Specialty Start Date End Date Bonita Arevalo MD [address] [place] [address] PCP - General 01/13/05
--- NOTE | 2025-06-28 20:38 | ED.GENADULT ---
HPI - General Adult General Chief complaint: Arrhythmia/Palpitations <Rocco Brenner MD - Last Filed: 07/04/25 01:23> Stated complaint: rapid heartbeat <Rocco Brenner MD - Last Filed: 07/04/25 01:23> Time Seen by Provider: 06/28/25 20:38 <Rocco Brenner MD - Last Filed: 07/04/25 01:23> History of Present Illness HPI narrative: Apple watch saying she has a rapid heart rate-130's-140' s started at 1200 Feels lightheaded today, some hot flashes and can feel high HR Hx: Stroke 3 months ago, checking out mitral valve per pt low BP today 119/77 80-year-old presenting to the emergency department with concern of rapid heart rate. Is suspected have atrial fibrillation setting of a mitral valve problem of some sort. They note that she has never actually had documented AFib. She did have a stroke in mid March of this year and since that time has had pressure in her for forehead. That has continued today though around noon between 8 and 9 hours prior to presentation emergency department she started to note her heart is racing. I understood Marya to say that she does have increased pressure in her chest as well however it sounds as though more of what she was feeling was her heart beating quite hard and fast. Not short of breath. Sense of lightheadedness but not dizziness. Was otherwise in usual state of health. She does continue to take regularly dosed Eliquis. Also takes carvedilol 25 mg daily. <Rocco Brenner MD - Last Filed: 07/04/25 01:23> Related Data Home medications: Home Medications ?Medication ?Instructions ?Recorded ?Confirmed amlodipine 5 mg tablet 5 mg PO 10/28/22 11/10/23 aspirin 81 mg tablet,delayed 81 mg PO QDAY 10/28/22 06/28/25 release carvedilol 25 mg tablet 25 mg PO 10/28/22 11/10/23 losartan 100 mg tablet 100 mg PO QDAY 10/28/22 06/28/25 torsemide 10 mg tablet 10 mg PO 10/28/22 11/10/23 albuterol sulfate 90 mcg/actuation 2 puff inhalation Q6H PRN 11/10/23 06/28/25 aerosol inhaler colestipol 1 gram tablet 1 g PO BID 11/10/23 11/10/23 cyanocobalamin (vitamin B-12) 1,000 mcg PO QDAY 11/10/23 06/28/25 1,000 mcg capsule docusate sodium 100 mg capsule 100 mg PO BID 11/10/23 06/28/25 duloxetine 20 mg capsule,delayed 20 mg PO DAILY 11/10/23 11/10/23 release fluticasone propionate 50 1 spray intranasal BID 11/10/23 11/10/23 mcg/actuation nasal spray,suspension hydrocodone 5 mg-acetaminophen 325 1 tab PO Q4H PRN 11/10/23 11/10/23 mg tablet apixaban 5 mg tablet (Eliquis) 5 mg PO BID 06/28/25 06/28/25 atorvastatin 40 mg tablet 40 mg PO QPM 06/28/25 06/28/25 Previous Rx's ?Medication ?Instructions ?Recorded methylprednisolone 4 mg tablets in See Rx Instructions PO PER PKG DIR 11/10/23 a dose pack (Medrol (Henok)) #21 ea <Rocco Brenner MD - Last Filed: 07/04/25 01:23> Allergies/adverse reactions: Allergies Allergy/AdvReac Type Severity Reaction Status Date / Time No Known Drug Allergies Allergy Verified 06/28/25 20:29 <Rocco Brenner MD - Last Filed: 07/04/25 01:23> Review of Systems Status of ROS: Reports: 6 or more systems reviewed and unremarkable except as noted in History and below <Rocco Brenner MD - Last Filed: 07/04/25 01:23> [facility] Medical History: Medical History Surgical procedure planned within 7 days Special screening examination for other specified viral diseases ?Z11.59 - Encounter for screening for other viral diseases (ICD-10) Health care directive on file (06/17/12) ?Z78.9 - Other specified health status (ICD-10) Fracture of ankle ?S82.899A - Other fracture of unspecified lower leg, initial encounter for closed fracture (ICD-10) Cellulitis ?L03.90 - Cellulitis, unspecified (ICD-10) Thoracic degenerative disc disease ?M51.34 - Other intervertebral disc degeneration, thoracic region (ICD-10) Degenerative disc disease, cervical ?M50.30 - Other cervical disc degeneration, unspecified cervical region (ICD-10) Cervical radiculopathy ?M54.12 - Radiculopathy, cervical region (ICD-10) Lumbar spondylosis ?M47.816 - Spondylosis without myelopathy or radiculopathy, lumbar region (ICD-10) Metatarsalgia, right foot ?M77.41 - Metatarsalgia, right foot (ICD-10) <Rocco Brenner MD - Last Filed: 07/04/25 01:23> Surgical History: Surgical History S/P trigger finger release (11/05/22) ?Z98.890 - Other specified postprocedural states (ICD-10) S/P left knee arthroscopy (10/09/05) ?Z98.890 - Other specified postprocedural states (ICD-10) Hx of thumb surgery (07/17/06) ?Z98.890 - Other specified postprocedural states (ICD-10) History of thumb surgery (09/30/06) ?Z98.890 - Other specified postprocedural states (ICD-10) Status post arthroscopy of left shoulder (05/29/10) ?Z98.890 - Other specified postprocedural states (ICD-10) S/P ORIF (open reduction internal fixation) fracture (01/03/16) ?Z98.890 - Other specified postprocedural states (ICD-10) ?Z87.81 - Personal history of (healed) traumatic fracture (ICD-10) Status post arthroscopy of right shoulder (06/16/01) ?Z98.890 - Other specified postprocedural states (ICD-10) Status post total bilateral knee replacement (2013) ?Z96.653 - Presence of artificial knee joint, bilateral (ICD-10) Status post total hip replacement, 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 Breathing easily. Looks like she does not feel very well. Lungs are clear. Heart is tachycardic. No murmur identified on initial auscultation at this rate. Trace pretibial edema. <Rocco Brenner MD - Last Filed: 07/04/25 01:23> Const: Vital Signs, click to edit/add: Vital Signs - 24 hr 06/28/25 20:23 Temperature 97.5 F L Pulse Rate [Pulse Oximeter] 145 H Respiratory Rate 18 Blood Pressure [Ri ght Upper Arm] 141/84 H Pulse Oximetry 97 Oxygen Delivery Me thod Room Air <Rocco Brenner MD - Last Filed: 07/04/25 01:23> Vital Signs, click to edit/add: Vital Signs - 24 hr 06/28/25 20:23 Temperature 97.5 F L Pulse Rate [Pulse Oximeter] 145 H Respiratory Rate 18 Blood Pressure [Ri ght Upper Arm] 141/84 H Pulse Oximetry 97 Oxygen Delivery Me thod Room Air <Radha Baumann MD - Last Filed: 06/28/25 22:49> Documenting provider has reviewed patient's vital signs: yes <Rocco Brenner MD - Last Filed: 07/04/25 01:23> Course Reevaluation(s) Reevaluation #1: Procedure note: I was asked to provide sedation for cardioversion. I reviewed risks and benefits with the patient and her daughter including risks of over sedation, need for airway management, aspiration, failure to convert, arrhythmia. Questions answered, consent signed. She was maintained on oximetry, cardiac monitoring and end-tidal CO2. She received 60 mg of IV propofol with adequate sedation, cardioverted successfully at 200 joules. She had a few seconds of apnea but no hypoxia, corrective with jaw thrust awakened without difficulty. No immediate complications. <Radha Baumann MD - Last Filed: 06/28/25 22:49> Vital Signs Vital signs: Initial Vital Signs Temperature 97.5 F L 06/28/25 20:23 Temperature Source Temporal Artery Scan 06/28/25 20:23 Pulse Rate 145 H 06/28/25 20:23 Respiratory Rate 18 06/28/25 20:23 Blood Pressure 141/84 H 06/28/25 20:23 Blood Pressure Mean 103 06/28/25 20:23 Blood Pressure Position Sitting 06/28/25 20:23 Pulse Oximetry 97 06/28/25 20:23 Oxygen Delivery Method Room Air 06/28/25 20:23 Vital Signs Temperature 97.5 F L 06/28/25 20:23 Pulse Rate 145 H 06/28/25 20:23 Respiratory Rate 18 06/28/25 20:23 Blood Pressure 141/84 H 06/28/25 20:23 Pulse Oximetry 97 06/28/25 20:23 Oxygen Delivery Method Room Air 06/28/25 20:23 Temperature 97.5 F L 06/28/25 20:23 Pulse Rate 64 06/28/25 23:16 Respiratory Rate 15 06/28/25 23:16 Blood Pressure 154/74 H 06/28/25 23:16 Pulse Oximetry 98 06/28/25 23:16 Oxygen Delivery Method Room Air 06/28/25 22:00 <Rocco Brenner MD - Last Filed: 07/04/25 01:23> Initial Vital Signs Temperature 97.5 F L 06/28/25 20:23 Temperature Source Temporal Artery Scan 06/28/25 20:23 Pulse Rate 145 H 06/28/25 20:23 Respiratory Rate 18 06/28/25 20:23 Blood Pressure 141/84 H 06/28/25 20:23 Blood Pressure Mean 103 06/28/25 20:23 Blood Pressure Position Sitting 06/28/25 20:23 Pulse Oximetry 97 06/28/25 20:23 Oxygen Delivery Method Room Air 06/28/25 20:23 Vital Signs Temperature 97.5 F L 06/28/25 20:23 Pulse Rate 145 H 06/28/25 20:23 Respiratory Rate 18 06/28/25 20:23 Blood Pressure 141/84 H 06/28/25 20:23 Pulse Oximetry 97 06/28/25 20:23 Oxygen Delivery Method Room Air 06/28/25 20:23 Temperature 97.5 F L 06/28/25 20:23 Pulse Rate 64 06/28/25 23:16 Respiratory Rate 15 06/28/25 23:16 Blood Pressure 154/74 H 06/28/25 23:16 Pulse Oximetry 98 06/28/25 23:16 Oxygen Delivery Method Room Air 06/28/25 22:00 <Radha Baumann MD - Last Filed: 06/28/25 22:49> Medications Administered Medications: Discontinued Medications Generic Name Dose Route Start Last Admin Trade Name Freq PRN Reason Stop Dose Admin Diltiazem HCl 20 mg 06/28/25 21:12 06/28/25 21:40 Diltiazem 5 Mg/Ml Inj IVP 06/28/25 21:13 20 mg ONCE ONE Administration Sodium Chloride 1,000 mls @ 1,000 mls/hr 06/28/25 21:12 06/28/25 22:15 0.9 % Sodium Chloride 1000 Ml IV 06/28/25 22:11 Infused .Q1H ONE Infusion Magnesium Sulfate/Dextrose 1 gm in 100 mls @ 100 mls/hr 06/28/25 21:14 06/28/25 23:30 Magnesium Sulf 1 G/100 Ml IVPB 06/28/25 22:13 Infused ONCE ONE Infusion Sodium Chloride 1,000 mls @ 1,000 mls/hr 06/28/25 22:30 06/28/25 23:40 0.9 % Sodium Chloride 1000 Ml IV 06/28/25 23:29 Infused .Q1H VICKY Infusion Propofol 200 mg 06/28/25 22:24 06/28/25 22:42 Propofol 10 Mg/Ml Inj IVP 06/28/25 22:25 200 mg ONCE ONE Administration <Rocco Brenner MD - Last Filed: 07/04/25 01:23> Discontinued Medications Generic Name Dose Route Start Last Admin Trade Name Freq PRN Reason Stop Dose Admin Diltiazem HCl 20 mg 06/28/25 21:12 06/28/25 21:40 Diltiazem 5 Mg/Ml Inj IVP 06/28/25 21:13 20 mg ONCE ONE Administration Sodium Chloride 1,000 mls @ 1,000 mls/hr 06/28/25 21:12 06/28/25 22:15 0.9 % Sodium Chloride 1000 Ml IV 06/28/25 22:11 Infused .Q1H ONE Infusion Magnesium Sulfate/Dextrose 1 gm in 100 mls @ 100 mls/hr 06/28/25 21:14 06/28/25 23:30 Magnesium Sulf 1 G/100 Ml IVPB 06/28/25 22:13 Infused ONCE ONE Infusion Sodium Chloride 1,000 mls @ 1,000 mls/hr 06/28/25 22:30 06/28/25 23:40 0.9 % Sodium Chloride 1000 Ml IV 06/28/25 23:29 Infused .Q1H VICKY Infusion Propofol 200 mg 06/28/25 22:24 06/28/25 22:42 Propofol 10 Mg/Ml Inj IVP 06/28/25 22:25 200 mg ONCE ONE Administration <Radha Baumann MD - Last Filed: 06/28/25 22:49> Medical Decision Making MDM Narrative Medical decision making narrative: IV was initiated. Placed on cardiac cath tech oximetry. Initial EKG independently reviewed by me looks to show atrial fibrillation rapid ventricular response. See below. She is clear that has maintained regular dosing of prescribed Eliquis. Is symptomatic with this atrial fibrillation. Given normal saline and 20 mg of diltiazem. Also magnesium infusion. This did essentially nothing to control her rate. Marya is quite clear about timing of onset. Would be a candidate for electrical cardioversion I think even if had been in atrial fibrillation intermittently over the last month or so as she has been taking Eliquis regularly. Labs are reassuring. I did discuss this case with Cardiology. In agreement with cardioversion for symptomatic atrial fibrillation. I did obtain informed consent for electrical cardioversion. See procedural note. Assisted by Dr. Baumann with sedation. See her sedation note. Tolerated this quite well. Procedure is electrical cardioversion for symptomatic atrial fibrillation with rapid ventricular response. Informed consent obtained. Monitored with cardiac cath tech and end-tidal. Cardioverted with 1 synced shock electrical cardioversion at 200 joules. Returned to normal sinus rhythm in the 60s and feeling improved upon becoming fully alert. No apparent complications. She has already taken her Eliquis for the evening so will not need to re-dose this. Ambulatory from emergency department. Patient discharge plan for further discussion Stay well-hydrated. Continue to take your medications as prescribed including the Eliquis and carvedilol. Follow-up as planned on the for this CHRISTOPHER. Return as needed. Was a pleasure taking care of you. <Rocco Brenner MD - Last Filed: 07/04/25 01:23> Medical Records Medical records reviewed: Yes I reviewed the patient's medical records <Rocco Brenner MD - Last Filed: 07/04/25 01:23> Lab Data Lab results reviewed: Yes I reviewed the patient's lab results <Rocco Brenner MD - Last Filed: 07/04/25 01:23> Labs: Lab Results 06/28/25 06/28/25 Range/Units 21:20 21:38 WBC 5.80 (4.50-11.00) K/uL RBC 4.74 (4.00-5.20) m/uL Hgb 14.2 (12.0-16.0) gm/dL Hct 43.0 (33.0-51.0) % MCV 91 (80-100) fL MCH 30 (26-34) pg MCHC 33 (32-36) gm/dL RDW Coeff of Dayron 14.3 (11.5-15.5) % Plt Count 214 (140-440) K/uL Neut % (Auto) 55.2 (42.0-72.0) % Lymph % (Auto) 23.4 (20-44) % [place] % (Auto) 10.2 (0.0-11.0) % Eos % (Auto) 9.8 H (0.0-7.0) % Baso % (Auto) 1.4 (0.0-3.0) % Neut # (Auto) 3.20 (1.7-7.0) K/uL Lymph # (Auto) 1.36 (0.90-2.90) K/uL [place] # (Auto) 0.60 (0.00-0.90) K/UL Eos # (Auto) 0.60 H (0.00-0.50) K/uL Baso # (Auto) 0.08 (0.00-0.30) K/uL Abs Immat Gran (auto) 0.00 (0.00-0.30) K/uL Imm/Tot Granulo (auto) 0.0 % Sodium 140 (135-149) mmol/L Potassium 3.8 (3.6-5.1) mmol/L Chloride 106 (96-114) mmol/L Carbon Dioxide 30 (20-32) mmol/L Anion Gap 4 L (7-15) mEq/L BUN 21 (7-30) mg/dL Creatinine 0.9 (0.5-1.5) mg/dL Estimated Creat Clear 46.89 Estimated GFR 65 ml/min Glucose 110 (60-115) mg/dL Calcium 9.7 (8.4-10.6) mg/dL Magnesium 2.3 (1.5-2.6) mg/dL Urine Color Yellow (Yellow) Urine Appearance Clear (Clear) Urine pH 8.0 (5.0-8.5) Ur Specific [place] 1.015 (1.000-1.030) Urine Protein Negative (Negative) Urine Glucose (UA) Negative (Negative) Urine Ketones Negative (Negative) Urine Blood Trace-intact A (Negative) Urine Nitrite Negative (Negative) Urine Bilirubin Negative (Negative) Urine Urobilinogen 0.2 (0.2-1.0) Ur Leukocyte Esterase Negative (Negative) Urine RBC 0-2 (0-2) Urine WBC 0-2 (0-5) Ur Squamous Epith Cells Few (None-Few) Urine Bacteria Few A (None) <Rocco Brenner MD - Last Filed: 07/04/25 01:23> Lab Results 06/28/25 06/28/25 Range/Units 21:20 21:38 WBC 5.80 (4.50-11.00) K/uL RBC 4.74 (4.00-5.20) m/uL Hgb 14.2 (12.0-16.0) gm/dL Hct 43.0 (33.0-51.0) % MCV 91 (80-100) fL MCH 30 (26-34) pg MCHC 33 (32-36) gm/dL RDW Coeff of Dayron 14.3 (11.5-15.5) % Plt Count 214 (140-440) K/uL Neut % (Auto) 55.2 (42.0-72.0) % Lymph % (Auto) 23.4 (20-44) % [place] % (Auto) 10.2 (0.0-11.0) % Eos % (Auto) 9.8 H (0.0-7.0) % Baso % (Auto) 1.4 (0.0-3.0) % Neut # (Auto) 3.20 (1.7-7.0) K/uL Lymph # (Auto) 1.36 (0.90-2.90) K/uL [place] # (Auto) 0.60 (0.00-0.90) K/UL Eos # (Auto) 0.60 H (0.00-0.50) K/uL Baso # (Auto) 0.08 (0.00-0.30) K/uL Abs Immat Gran (auto) 0.00 (0.00-0.30) K/uL Imm/Tot Granulo (auto) 0.0 % Sodium 140 (135-149) mmol/L Potassium 3.8 (3.6-5.1) mmol/L Chloride 106 (96-114) mmol/L Carbon Dioxide 30 (20-32) mmol/L Anion Gap 4 L (7-15) mEq/L BUN 21 (7-30) mg/dL Creatinine 0.9 (0.5-1.5) mg/dL Estimated Creat Clear 46.89 Estimated GFR 65 ml/min Glucose 110 (60-115) mg/dL Calcium 9.7 (8.4-10.6) mg/dL Magnesium 2.3 (1.5-2.6) mg/dL Urine Color Yellow (Yellow) Urine Appearance Clear (Clear) Urine pH 8.0 (5.0-8.5) Ur Specific [place] 1.015 (1.000-1.030) Urine Protein Negative (Negative) Urine Glucose (UA) Negative (Negative) Urine Ketones Negative (Negative) Urine Blood Trace-intact A (Negative) Urine Nitrite Negative (Negative) Urine Bilirubin Negative (Negative) Urine Urobilinogen 0.2 (0.2-1.0) Ur Leukocyte Esterase Negative (Negative) Urine RBC 0-2 (0-2) Urine WBC 0-2 (0-5) Ur Squamous Epith Cells Few (None-Few) Urine Bacteria Few A (None) <Radha Baumann MD - Last Filed: 06/28/25 22:49> ECG Data Attestation: I personally reviewed and interpreted this ECG as follows: (EKG 1. Shows atrial fibrillation with RVR at a rate of 145. EKG 2. Following electrical cardioversion shows normal sinus rhythm at a rate of 67. Looks similar to prior from April 11 2025) <Rocco Brenner MD - Last Filed: 07/04/25 01:23> Critical Care Time Critical Care Time Critical Care Time: Yes Attestation: The patient required my highest level preparedness to intervene emergently and I personally spent this critical care time directly and personally managing the patient. This critical care time included: Obtaining a history; Examining the patient; Pulse oximetry; Ordering and reviewing of studies; Arranging urgent treatment with development of a management plan; Evaluation of patients response to treatment; Frequent reassessment discussions with other providers. This critical care time was performed to assess and manage the high probability of imminent life-threatening deterioration that could result in multiorgan failure. It was exclusive of separate billable procedures and treating other patients and teaching time. <Rocco Brenner MD - Last Filed: 07/04/25 01:23> Total Critical Care Time in Minutes: 75 <Rocco Brenner MD - Last Filed: 07/04/25 01:23> Discharge Plan Discharge Clinical Impression: Atrial fibrillation with RVR <Rocco Brenner MD - Last Filed: 07/04/25 01:23> Patient Disposition: Home w/ Parent or Adult <Rocco Brenner MD - Last Filed: 07/04/25 01:23> Condition: Improved <Rocco Brenner MD - Last Filed: 07/04/25 01:23> Instructions: A-fib (Atrial Fibrillation) (ED) <Rocco Brenner MD - Last Filed: 07/04/25 01:23> Additional Instructions: Stay well-hydrated. Continue to take your medications as prescribed including the Eliquis and carvedilol. Follow-up as planned on the for this CHRISTOPHER. Return as needed. Was a pleasure taking care of you. <Rocco Brenner MD - Last Filed: 07/04/25 01:23> Activity Level: No Restrictions <Rocco Brenner MD - Last Filed: 07/04/25 01:23> No Restrictions <Radha Baumann MD - Last Filed: 06/28/25 22:49> Discharge Diet: Regular <Rocco Brenner MD - Last Filed: 07/04/25 01:23> Regular <Radha Baumann MD - Last Filed: 06/28/25 22:49> Prescriptions: No Action amlodipine 5 mg tablet 5 mg PO torsemide 10 mg tablet 10 mg PO losartan 100 mg tablet 100 mg PO QDAY carvedilol 25 mg tablet 25 mg PO aspirin 81 mg tablet,delayed release (DR/EC) 81 mg PO QDAY Patient Comments: TAKE 1 TABLET BY MOUTH TWICE DAILY colestipol 1 gram tablet 1 g PO BID docusate sodium 100 mg capsule 100 mg PO BID cyanocobalamin (vitamin B-12) 1,000 mcg capsule 1,000 mcg PO QDAY duloxetine 20 mg capsule,delayed release(DR/EC) 20 mg PO DAILY hydrocodone-acetaminophen 5-325 mg tablet 1 tab PO Q4H PRN fluticasone propionate 50 mcg/actuation spray,suspension 1 spray intranasal BID albuterol sulfate 90 mcg/actuation HFA aerosol inhaler 2 puff inhalation Q6H PRN atorvastatin 40 mg tablet 40 mg PO QPM Eliquis 5 mg tablet 5 mg PO BID methylprednisolone [Medrol (Henok)] 4 mg tablets,dose pack See Rx Instructions PO PER PKG DIR Qty: 21 0RF Rx Instructions: PO PER PKG DIR <Rocco Brenner MD - Last Filed: 07/04/25 01:23> Follow Up/Referrals: Bonita Arevalo MD [Primary Care Provider, Family Practice] <Rocco Brennre MD - Last Filed: 07/04/25 01:23> Stand Alone Forms: MyHealth Info Instructions <Rocco Brenner MD - Last Filed: 07/04/25 01:23>
[2025-06-28 21:28] LABS: Hematocrit* 43.0 % (33.0-51.0); Hemoglobin* 14.2 gm/dL (12.0-16.0); Immature Granulocytes Abs Auto 0.00 K/uL (0.00-0.30); Immature Granulocytes Pct Auto 0.0 %; Lymphocytes Absolute Auto 1.36 K/uL (0.90-2.90); Mean Corpuscular HGB Conc 33 gm/dL (32-36); Mean Corpuscular Hemoglobin 30 pg (26-34); Mean Corpuscular Volume 91 fL (80-100); RDW Coefficient of Variation % 14.3 % (11.5-15.5); Red Blood Count* 4.74 m/uL (4.00-5.20); White Blood Count* 5.80 K/uL (4.50-11.00)
[2025-06-28 21:37] LABS: Slide Review Reflex No
[2025-06-28] MEDS: dilTIAZem 5 MG/ML inj 20 MG IVP (21:40)
[2025-06-28 21:42] LABS: Appearance Urine Clear (Clear)
[2025-06-28 21:49] LABS: Chloride* 106 mmol/L (96-114); Potassium* 3.8 mmol/L (3.6-5.1); Sodium* 140 mmol/L (135-149)
[2025-06-28 21:52] LABS: Anion Gap 4 mEq/L (7-15); Blood Urea Nitrogen* 21 mg/dL (7-30); Carbon Dioxide* 30 mmol/L (20-32); Creatinine* 0.9 mg/dL (0.5-1.5); Est. Creatinine Clearance* 46.89; Estimated Glomerular Filt Rate 65 ml/min
[2025-06-28] MEDS: MAGNESIUM SULF 1 G/100 ML 1 GM/100 ML PIGGYBACK IVPB (22:16)
[2025-06-28] MEDS: PROPOFOL 10 MG/ML INJ 200 MG IVP (22:42)
[2025-06-28 22:52] LABS: Calcium* 9.7 mg/dL (8.4-10.6); Glucose* 110 mg/dL (60-115)
== END 2025-06-29 00:24 | disposition home or self-care (01) ==
PROVIDERS: Emergency Provider Family Medicine; PCP Family Medicine
DX: I48.91 Unspecified atrial fibrillation (principal); Z79.01 Long term (current) use of anticoagulants
CPT/HCPCS: 36415; 80048; 81001; 83735; 85025; 87086; 93005; 99284; 99291; J2704; J3475; J7030

== ENCOUNTER 2025-07-25 11:15 | Outpatient (RCR) | payer MEDICARE, BC, SELFPAY | END 2025-08-31 16:22 | disposition home or self-care (01) | PROVIDERS: PCP Family Medicine; Visit Provider Family Medicine | DX: I63.9 Cerebral infarction, unspecified (principal); I69.398 Other sequelae of cerebral infarction; H53.451 Other localized visual field defect, right eye; G44.209 Tension-type headache, unspecified, not intractable; R20.0 Anesthesia of skin; Z51.89 Encounter for other specified aftercare | CPT/HCPCS: 97110; 97112; 97140; 97162; 97165; 97530; 97535; X5282 ==